=== PATIENT | female | born 1950 | race African-American/Black ===

== ENCOUNTER 2021-10-11 10:01 | Emergency (ER) | payer MEDICARE, BC, SELFPAY ==
--- NOTE | ~2021-10-11 | XR_ITS ---
EXAMINATION: XR chest 2V DATE: 10/11/2021 10:36 INDICATION: Cough. Shortness of breath. TECHNIQUE: Frontal and lateral views of the chest were obtained. COMPARISON: Chest 2 views 10/12/2013, chest CT 10/12/2013 FINDINGS: There are airspace opacities at left lung base. No pleural effusion or pneumothorax. The he art size is normal. IMPRESSION: 1. Airspace opacities at left lung base, consistent with atelectasis versus pneumonia. Reviewed, dictated and finalized at location A. ICAL PRODUCTION ENGINEER IMPRESSION: 1. Airspace opacities at left lung base, consistent with atelectasis versus pne umonia.
--- NOTE | 2021-10-11 10:07 | ECG_ITS ---
Measurements Intervals [place] Rate: 80 P: 11 [place]: 191 QRS: -53 QRSD: 142 T: -10 QT: 373 QTc: 432 Interpretive Statements SINUS RHYTHM LEFT AXIS DEVIATION LEFT BUNDLE BRANCH BLOCK INFERIOR INFARCT OR DUE TO LBBB ABNORMAL ECG Electronically Signed On 10-11-2021 16:54:31 SOFTWARE DEVELOPMENT TEST ENGINEER by Lenin Landaverde D.O.
[2021-10-11 10:12] VITALS: BP 153/86; PULSE 83; RESP 28; TEMP 36.9; O2SAT 98
[2021-10-11 10:27] LABS: Basophils Percent Auto 0.5 % (0.2-1.2); Eosinophils Absolute Auto 0.1 K/mm3 (0-0.3); Eosinophils Percent Auto 1.6 % (0-4.4); Hematocrit 40.3 % (37.0-47.0); Hemoglobin 13.5 g/dL (12.0-15.0); Immature Granulocyte Absolute 0.02 K/mm3 (0.00-0.031); Immature Granulocyte Percent A 0.5 % (0-0.5); Lymphocytes Absolute Auto 0.81 K/mm3 (0.9-3.2); Lymphocytes Percent Auto 18.5 % (18.3-44.2); Mean Corpuscular HGB Conc 33.5 g/dl (32-36); Mean Corpuscular Hemoglobin 31.8 pg (26-34); Mean Corpuscular Volume 94.8 fl (80-100); Mean Platelet Volume 9.5 fl (7.4-10.4); Monocytes Absolute Auto 0.7 K/mm3 (0.1-0.6); Monocytes Percent Auto 16.9 % (2.6-8.5); Neutrophils Absolute Auto 2.7 K/mm3 (1.3-6.7); Platelet Count Result 233 k/mm3 (150-375); Red Blood Count 4.25 M/mm3 (4.2-5.4); Red Cell Distribution Width 13.5 % (11.5-14.5); White Blood Count 4.4 K/mm3 (4.5-10.0)
[2021-10-11 10:37] LABS: Alanine Aminotransferase 18 U/L (4-35); Albumin Level 4.2 g/dL (3.5-5.1); Alkaline Phosphatase 82 U/L (38-126); Anion Gap 8 mmol/L (8-16); Aspartate Amino Transferase 32 U/L (14-36); Bilirubin,Total 0.5 mg/dL (0.2-1.3); Blood Urea Nitrogen 11 mg/dL (7-17); Calcium 8.9 mg/dL (8.4-10.2); Carbon Dioxide 25 mmol/L (22-30); Chloride 99 mmol/L (98-107); Estimated CRCL calculation 57 ml/min; Estimated Glomerular Filt Rate > 60; Glucose 160 mg/dL (65-110); Potassium 3.7 mmol/L (3.4-5.0); Sodium 132 mmol/L (137-145)
[2021-10-11] MEDS: FUROSEMIDE INJ 40 MG/4 ML VIAL IV PUSH (11:08)
[2021-10-11 13:05] VITALS: BP 146/82; PULSE 85; RESP 20; O2SAT 97
[2021-10-11 13:52] VITALS: BP 145/88; PULSE 86; RESP 24
--- NOTE | 2021-10-11 15:47 | ED.GENADULT ---
HPI - General Adult General Chief complaint: Shortness of Breath/Dyspnea <Trisha Hinds PA-C - Last Filed: 10/11/21 16:13> Stated complaint: dizziness <Trisha Hinds PA-C - Last Filed: 10/11/21 16:13> Time Seen by Provider: 10/11/21 10:17 <JAKOB Manriquez Last Filed: 10/11/21 16:13> Source: patient <Trisha Hinds PA-C - Last Filed: 10/11/21 16:13> Mode of arrival: ambulatory <JAKOB Manriquez Last Filed: 10/11/21 16:13> Limitations: no limitations <JAKOB Manriquez Last Filed: 10/11/21 16:13> History of Present Illness HPI narrative: Patient presents with chief complaint of increased work of breathing that began today. Patient reports that she is on her primary care last week because she had a cough and was diagnosed with bronchitis. Patient reports that she was prescribed a Z-Gabriel. She reports that she has also been using her albuterol inhaler as needed but has not been causing any more the past few days. Patient states that she is visiting from out of town and left her Lasix 20 mg tablets at home. She reports she has not taken them this week. She reports she takes 20 mg every other day. She denies noticing increased swelling to her legs, chest pain, fever, chills or lethargy. <Trisha Hinds PA-C - Last Filed: 10/11/21 16:13> Related Data Home medications: Home Medications Medication Instructions Recorded Confirmed acetaminophen [Tylenol Extra 500 mg PO Q6H PRN 10/11/21 10/11/21 Strength] albuterol sulfate 2 puff INHALATION Q4H 10/11/21 aspirin [Aspirin Child] 81 mg PO DAILY 10/11/21 atorvastatin 40 mg PO DAILY 10/11/21 carvedilol 25 mg PO BID 10/11/21 chlorthalidone 25 mg PO DAILY 10/11/21 duloxetine 30 mg PO DAILY 10/11/21 furosemide 20 mg PO DAILY 10/11/21 lisinopril 10 mg PO DAILY 10/11/21 metformin 500 mg PO BID 10/11/21 valsartan 160 mg PO DAILY 10/11/21 <Trisha Hinds PA-C - Last Filed: 10/11/21 16:13> Allergies/adverse reactions: Allergies Allergy/AdvReac Type Severity Reaction Status Date / Time No Known Allergies Allergy Unverified 10/12/13 08:56 <Trisha Hinds PA-C - Last Filed: 10/11/21 16:13> Review of Systems Review of Systems: CONSTITUTIONAL: Denies fever, chills, or sweats. EYES: Denies visual changes, redness, or discharge. ENT: Denies rhinorrhea, congestion, sore throat, or otalgia. CARDIOVASCULAR: Denies chest pain, palpitations, or edema. RESPIRATORY: Reports increased work of breathing and occasional dry cough GASTROINTESTINAL: Denies abdominal pain, nausea, vomiting, or diarrhea. GENITOURINARY: Denies dysuria or hematuria. SKIN: Denies rash or itching. MUSCULOSKELETAL: Denies back pain, joint pain, or myalgia. NEUROLOGIC: Denies headache, numbness, dizziness, or weakness. PSYCHIATRIC: Denies anxiety or depression. <Trisha Hinds PA-C - Last Filed: 10/11/21 16:13> Exam Narrative: GENERAL: Well-appearing, well-nourished, and in no acute distress. HEAD: Normocephalic, atraumatic. EYES: PERRLA and EOMI. NECK: Supple. No adenopathy or masses. No carotid bruits or JVD CHEST: Clear to auscultation. No respiratory distress- but slightly increased RR. No wheezes rales or rhonchi. Patient speaking in clear sentences w/o difficulty. HEART: Regular rate and rhythm. No murmur heard. Normal peripheral pulses. ABDOMEN: Soft, nontender, nondistended, normal active bowel sounds. EXTREMITIES: Normal range of motion. No edema or pitting. SKIN: Warm, dry, no rash. NEURO: No focal deficits. Alert and oriented x3. PSYCH: Normal mood and affect. <Trisha Hinds PA-C - Last Filed: 10/11/21 16:13> Course Vital Signs Vital signs: Vital Signs Temperature 98.4 F 10/11/21 10:12 Pulse Rate 83 10/11/21 10:12 Respiratory Rate 28 H 10/11/21 10:12 Blood Pressure 153/86 H 10/11/21 10:12 Pulse Oximetry 98 10/11/21 10:12 Temperature 98.4 F 10/11/21 10:12 Pulse Rate 86 10/11/21 13:52
== END 2021-10-11 13:45 | disposition home or self-care (01) ==
PROVIDERS: Emergency Provider General Practice
DX: I50.9 Heart failure, unspecified (principal); Z91.14 Patient's other noncompliance with medication regimen; R91.8 Other nonspecific abnormal finding of lung field
CPT/HCPCS: 36415; 71046; 80053; 85025; 93005; 96374; 99284; J1940

== ENCOUNTER 2023-01-30 12:18 | Emergency (ER) | payer MEDICARE, BC, SELFPAY ==
--- NOTE | ~2023-01-30 | XR_ITS ---
EXAMINATION: XR chest 2V 01/30/2023 13:48 INDICATION: Bilateral leg swelling. Weakness. PROCEDURE: Two-view chest COMPARISON: Comparison to multiple prior studies sequentially, with oldest reviewed study dated 01/31. FINDINGS: The lungs are clear. The cardiomediastinal silhouette is within normal limits. There are no pleural effusions. There is no pneumothorax suspected. IMPRESSION: 1: NO ACUTE CARDIOPULMONARY DISEASE. Reviewed, dictated and finalized at location L.
--- NOTE | ~2023-01-30 | US_ITS ---
EXAMINATION:US venous doppler LE BI INDICATION:Leg swelling TECHNIQUE: Multiple grayscale, color flow and Doppler images of the right and left lower extremity de ep venous systems were obtained and reviewed. COMPARISON:No prior studies for comparison. FINDINGS: The common femoral, superficial femoral and popliteal veins demonstrate normal respiratory variation, augmentation and compressibility. Color flow is also seen within the posterior tibial, pe roneal, greater saphenous and profunda veins. IMPRESSION: 1: No lower extremity deep venous thrombosis. Reviewed, dictated and finalized at location L.
[2023-01-30 12:48] VITALS: BP 122/69; PULSE 59; RESP 20; TEMP 37.4; O2SAT 97
--- NOTE | 2023-01-30 13:15 | ECG_ITS ---
Measurements Intervals [place] Rate: 56 P: 10 [place]: 204 QRS: -54 QRSD: 124 T: -31 QT: 422 QTc: 408 Interpretive Statements SINUS BRADYCARDIA LEFT AXIS DEVIATION NONSPECIFIC T-WAVE ABNORMALITY ANTEROSEPTAL MYOCARDIAL INFARCTION , OF INDETERMINATE AGE ABNORMAL ECG COMPARED TO ECG 10/11/2021 10:56:23 SINUS BRADYCARDIA NOW PRESENT Electronically Signed On 01-31-2023 16:25:10 CDT by Richard Pickard M.D.
[2023-01-30 13:30] LABS: Basophils Absolute Auto 0.1 K/mm3 (0.0-0.1); Basophils Percent Auto 0.9 % (0.2-1.2); Eosinophils Absolute Auto 0.4 K/mm3 (0-0.3); Eosinophils Percent Auto 6.4 % (0-4.4); Hematocrit 41.1 % (37.0-47.0); Hemoglobin 13.2 g/dL (12.0-15.0); Immature Granulocyte Absolute 0.01 K/mm3 (0.00-0.031); Immature Granulocyte Percent A 0.2 % (0-0.5); Lymphocytes Absolute Auto 2.37 K/mm3 (0.9-3.2); Lymphocytes Percent Auto 40.9 % (18.3-44.2); Mean Corpuscular HGB Conc 32.1 g/dl (32-36); Mean Corpuscular Hemoglobin 32.1 pg (26-34); Mean Platelet Volume 9.3 fl (7.4-10.4); Monocytes Absolute Auto 0.4 K/mm3 (0.1-0.6); Monocytes Percent Auto 6.9 % (2.6-8.5); Neutrophils Absolute Auto 2.6 K/mm3 (1.3-6.7); Neutrophils Percent Auto 44.7 % (45.5-73.1); Platelet Count Result 236 k/mm3 (150-375); Red Blood Count 4.11 M/mm3 (4.2-5.4); Red Cell Distribution Width 13.6 % (11.5-14.5); White Blood Count 5.8 K/mm3 (4.5-10.0)
[2023-01-30 13:41] LABS: INR 1.1; Prothrombin Time 13.7 Seconds (11.1-14.7)
[2023-01-30 13:46] LABS: Alanine Aminotransferase 17 U/L (6-35); Albumin Level 3.9 g/dL (3.5-5.1); Alkaline Phosphatase 81 U/L (38-126); Anion Gap 5 mmol/L (8-16); Aspartate Amino Transferase 24 U/L (14-36); Bilirubin,Total 0.5 mg/dL (0.2-1.3); Blood Urea Nitrogen 16 mg/dL (7-17); Calcium 8.8 mg/dL (8.4-10.2); Carbon Dioxide 33 mmol/L (22-30); Chloride 102 mmol/L (98-107); Estimated CRCL calculation 64 ml/min; Estimated Glomerular Filt Rate > 60; Glucose 128 mg/dL (65-110); Potassium 3.9 mmol/L (3.4-5.0); Sodium 140 mmol/L (137-145)
[2023-01-30] MEDS: HYDROcodone/acetaminophen (*CRX) 5-325 MG TABLET 1 TAB PO (13:47)
--- NOTE | 2023-01-30 13:53 | ED.GENADULT ---
HPI - General Adult General Chief complaint: Unspecified Stated complaint: hurts all over Time Seen by Provider: 01/30/23 13:31 History of Present Illness HPI narrative: Patient is a 72 year old female with a history of COPD, CHF here for evaluation of BLE pain x 4 days. Patient denies injury. States that her legs are swollen and painful, denies history of previous. She has been able to walk she states it is painful in her knees. She does have a history of DVT in the past, was told she could stop her Eliquis last year. She denies any chest pain, shortness of breath, fevers or chills, cough or congestion. Related Data Home Medications Medication Instructions Recorded Confirmed acetaminophen 500 mg capsule 500 mg PO Q6H PRN Pain, Mild 10/11/21 10/11/21 albuterol sulfate 90 mcg/actuation 2 puff inhalation Q4H 10/11/21 aerosol inhaler aspirin 81 mg chewable tablet 81 mg PO DAILY 10/11/21 atorvastatin 40 mg tablet 40 mg PO DAILY 10/11/21 carvedilol 25 mg tablet 25 mg PO BID 10/11/21 chlorthalidone 25 mg tablet 25 mg PO DAILY 10/11/21 duloxetine 30 mg capsule,delayed 30 mg PO DAILY 10/11/21 release furosemide 20 mg tablet 20 mg PO DAILY 10/11/21 lisinopril 10 mg tablet 10 mg PO DAILY 10/11/21 metformin 500 mg tablet 500 mg PO BID 10/11/21 valsartan 160 mg tablet 160 mg PO DAILY 10/11/21 Allergies Allergy/AdvReac Type Severity Reaction Status Date / Time No Known Allergies Allergy Verified 01/30/23 13:09 Review of Systems Review of Systems: Gen.: Denies fevers or chills Eyes: Denies eye pain or visual change ENT: Denies congestion Respiratory: Denies shortness of breath or cough CV: Denies chest pain or palpitations GI: Denies abdominal pain nausea, emesis or diarrhea denies burning, urgency, frequency or hematuria Musculoskeletal: Reports leg swelling Neuro: Denies numbness, tingling, weakness or focal weakness Skin: Denies rash Except as documented, all other systems reviewed and negative Exam Narrative: APPEARANCE: Well appearing, no pain in distress, well-nourished. Head: Normocephalic and atraumatic. EYES: PERRLA/EOMI, conjunctivae clear NOSE: No nasal drainage EARS: External ear normal in appearance THROAT: Oropharynx is clear. Mucous membranes are moist. NECK: Supple. No adenopathy, no masses. RESPIRATORY: Airway patent, respirations nonlabored. Clear to auscultation bilaterally, no rales, rhonchi, wheezing. CARDIOVASCULAR: Regular rate and rhythm without murmurs, rubs, or gallops. ABDOMINAL: Normoactive bowel sounds. Soft, nontender, nondistended. No rebound tenderness or guarding. MUSCULOSKELETAL: There is 1+ pitting edema to bilateral lower extremities. There is no redness or tenderness to palpation of the calves. There is no bony tenderness to palpation along the knees, hips or feet. Normal gait; steady with a walker. NEURO: Normal speech. No focal neurologic deficits. SKIN: Skin is warm and dry. No rashes. PSYCHIATRIC: Normal affect/mood. Course Vital Signs Vital signs: Vital Signs Temperature 99.3 F 01/30/23 12:48 Pulse Rate 59 L 01/30/23 12:48 Respiratory Rate 20 01/30/23 12:48 Blood Pressure 122/69 01/30/23 12:48 Pulse Oximetry 97 01/30/23 12:48 Oxygen Delivery Room Air 01/30/23 12:48 Temperature 99.3 F 01/30/23 12:48 Pulse Rate 57 L 01/30/23 15:20 Respiratory Rate 17 01/30/23 15:20 Blood Pressure 116/73 01/30/23 15:20 Pulse Oximetry 97 01/30/23 15:20 Oxygen Delivery Room Air 01/30/23 12:48 Medical Decision Making [facility] Narrative Medical decision making narrative: 72 year old female here for evaluation of acute on chronic bilateral trace pitting edema to bilateral lower extremities x 3 days. No other symptoms such as shortness of breath or chest pain. Reports some pain concentrated around her knees but denies any trauma. No bony tenderness to palpation. Patient is nontoxic in appearance and has normal vital signs, she is able to
[2023-01-30 13:57] LABS: NT Pro B Type Natriuretic Pept 67 pg/mL (19.9-100); Troponin I < 0.012 ng/mL (0.000-0.034)
[2023-01-30 15:20] VITALS: BP 116/73; PULSE 57; RESP 17; O2SAT 97
== END 2023-01-30 15:21 | disposition home or self-care (01) ==
PROVIDERS: Emergency Medicine; Emergency Provider Physician Assistant
DX: M79.605 Pain in left leg (principal); M79.604 Pain in right leg; R60.0 Localized edema; J44.9 Chronic obstructive pulmonary disease, unspecified; I50.9 Heart failure, unspecified; Z79.82 Long term (current) use of aspirin; Z79.84 Long term (current) use of oral hypoglycemic drugs
CPT/HCPCS: 36415; 71046; 80053; 83880; 84484; 85025; 85610; 85730; 93005; 93970; 99284; A9270

== ENCOUNTER 2023-05-06 11:00 | Outpatient (RCR) | payer MEDICARE, BC, SELFPAY ==
--- NOTE | 2023-03-24 14:56 | OPREHPOC ---
Outpatient Therapy Plan of Care This is a Multidisciplinary Plan of Care that may contain components documented by all disciplines (PT, OT, and ST.) PT Problem 1 PT Problem #1 Knowledge Deficit PT Goal 1 Goal Pt to be IND with issued HEP. Target Visit 10 PT Problem 2 PT Problem #2 Pain PT Goal 1 Goal Pt to report shameka knee pain no greater than 3/10 in the last week Target Visit 10 PT Goal 2 Goal Pt to report 70% improvement in overall symptoms Target Visit 10 PT Problem 3 PT Problem #3 Impaired Functional Mobil PT Goal 1 Goal Pt to improve 2 min walk distance from 170ft to 220ft. Target Visit 10 PT Goal 2 Goal Pt to improve Tinetti score from 16/28 to 20/28 Target Visit 10 PT Problem 4 PT Problem #4 Impaired Strength PT Goal 1 Goal Pt to demonstrate BLE strength grossly 4+/5 Target Visit 10 PT Goal 2 Goal Pt to improve her 5xSTS time from 26s to 15s to minimize fall risk Target Visit 10 PT Problem 5 PT Problem #5 Impaired Safety Awareness PT Goal 1 Goal Pt to report no falls in the last month Target Visit 10 PT Goal 2 Goal Pt to demonstrate good safety awareness with her rollator Target Visit 10
--- NOTE | 2023-03-24 14:57 | PTOPEVAL1 ---
Assessment and note entered by Lesley Langley, PT, DPT Evaluation Information Assessment Status Evaluation Diagnosis shameka knee and lower back pain Subjective Information Pt arrived 15 mins late for initial evaluation this date. Pt ambulates into the clinic today with a rollator . Pt reports shameka leg pain that limits her mobility, that has been progressing for the last couple months. Her daughter reports she has not been walking very well for a couple of years now. She reports 1 fall in the last 6 months. She reports using her rollator 100% of the time. She reports pain when rolling over at night and during walking , she declines pain at rest. Reported Pain Level Pain Score 3: Self Report Assessment PT Clinical Summary Rafia presents to therapy today for her initial evaluation with a diagnosis of shameka knee pain and low back pain. Today she demonstrates decreased knee ROM shameka, weakness of her shameka ankles, knees, and hips, abnormalities of gait, and decreased safety awareness with functional mobility. Skilled physical therapy services are indicated to address the deficits noted above, to improve safety , to manage pain, to improve functional mobility, and to improve baseline mobility. Plan of Care Interventions Electrical Stimulation,Gait Training,Hot Pack/Cold Pack,Manual Therapy,Neuro Re-education,Patient/ Caregiver Educati,Therapeutic Activities, Therapeutic Exercise PT Services Indicated Yes Treatment Frequency and 2x/wk for 5 wks Duration These treatments will address the objective and functional deficits as defined above. The patient will be advanced safely and appropriately in order for the patient to progress towards his/her prior level of function. Additional exercises will be introduced and as well as a comprehensive home exercise program upon discharge, if needed, ?to ensure carryover of functional gains achieved in the clinic. This treatment plan has been reviewed and agreement upon by the patient.
--- NOTE | 2023-04-15 09:53 | PCPTNOTE ---
Patient reports she cannot make it to her appointment this date due to not having transportation.
--- NOTE | 2023-04-23 08:36 | PCPTNOTE ---
Patient no show and no called this date. Called and patient was not home. Will call back to reschedule appointment.
--- NOTE | 2023-04-24 09:52 | PCPTNOTE ---
Patient no showed to appointment this date. Called and spoke with patient who states she forgot to call to say she had no ride to appointment.
--- NOTE | 2023-05-06 11:59 | PTOPDC ---
Assessment and note entered by Lesley Langley, PT, DPT Evaluation Information Assessment Status Discharge Diagnosis shameka knee and lower back pain Subjective Information Pt states she longer has pain at night anymore. Pt reports 80% improvement in her overall symptoms. She states sometimes she will forget to use her walker. She states she can stand no longer than 4 mins before she has to sit d/t fatigue. Reported Pain Level Pain Score 1,3: Self Report Assessment PT Clinical Summary Rafia presents to therapy today for her progress report following 5 visits of skilled therapy to treat her diagnosis of shameka knee pain and low back pain. Today she demonstrates improved gait speed, improved time during her sit to stand test, and improved LE strength, with decreased pain reports. She reports 80% improvement in overall symptoms and reports she can complete her exercises on her own from now own. She will be therefore be discharged from skilled services at this time. Plan of Care PT Services Indicated No
== END 2023-05-09 09:01 | disposition home or self-care (01) ==
LOC: ANHGOSHPT 11:00
PROVIDERS: Visit Provider Internal Medicine
DX: M54.50 Low back pain, unspecified (principal); M17.10 Unilateral primary osteoarthritis, unspecified knee; G89.29 Other chronic pain; I89.0 Lymphedema, not elsewhere classified
CPT/HCPCS: 97110; 97112; 97161; 97530; 99199

== ENCOUNTER 2023-06-12 18:35 | Observation (INO) | payer MEDICARE, BC, SELFPAY ==
[2023-06-12] VITALS (22 sets, daily range): BP systolic 147–151; BP diastolic 64–72; PULSE 61–70; RESP 14–24; TEMP 36.5–36.8; O2SAT 99–100; BMI 39.2
--- NOTE | ~2023-06-12 | XR_ITS ---
EXAMINATION: XR chest 2V DATE: 06/12/2023 19:11 INDICATION: Chest pain TECHNIQUE: frontal and lateral views of the chest were obtained. COMPARISON: Chest radiograph dated 01/30/2023 FINDINGS: Oblique band of discoid atelectasis/scarring at the anterior lower lung on the lateral projection, mo re likely left and right-sided. No other airspace opacities, pulmonary edema, pleural effusion or pne umothorax. Heart size is normal. There are bridging osteophytes at multiple levels in the spine, cons istent with diffuse idiopathic skeletal hyperostosis (DISH). IMPRESSION: 1. Persistent discoid atelectasis/scarring at the anterior lung base, likely on the left. Reviewed, dictated and finalized at location A.
--- NOTE | 2023-06-12 18:56 | ECG_ITS ---
Measurements Intervals [place] Rate: 66 P: 25 MT: 189 QRS: -45 QRSD: 119 T: 66 QT: 423 QTc: 444 Interpretive Statements SINUS RHYTHM LEFT ANTERIOR FASCICULAR BLOCK [QRS AXIS <= -45, QR IN I, RS IN II] NONSPECIFIC T-WAVE ABNORMALITY ABNORMAL ECG COMPARED TO ECG 01/30/2023 13:31:32 NO SIGNIFICANT CHANGE Electronically Signed On 06-13-2023 14:40:16 CDT by Joey Stringer M.D.
[2023-06-12 19:12] LABS: Basophils Percent Auto 0.6 % (0.2-1.2); Eosinophils Absolute Auto 0.3 K/mm3 (0-0.3); Eosinophils Percent Auto 6.3 % (0-4.4); Hematocrit 38.7 % (37.0-47.0); Hemoglobin 12.2 g/dL (12.0-15.0); Immature Granulocyte Absolute 0.01 K/mm3 (0.00-0.031); Immature Granulocyte Percent A 0.2 % (0-0.5); Lymphocytes Absolute Auto 1.79 K/mm3 (0.9-3.2); Lymphocytes Percent Auto 37.5 % (18.3-44.2); Mean Corpuscular HGB Conc 31.5 g/dl (32-36); Mean Corpuscular Volume 98.5 fl (80-100); Mean Platelet Volume 9.8 fl (7.4-10.4); Monocytes Absolute Auto 0.5 K/mm3 (0.1-0.6); Monocytes Percent Auto 10.3 % (2.6-8.5); Neutrophils Absolute Auto 2.2 K/mm3 (1.3-6.7); Neutrophils Percent Auto 45.1 % (45.5-73.1); Platelet Count Result 224 k/mm3 (150-375); Red Blood Count 3.93 M/mm3 (4.2-5.4); Red Cell Distribution Width 13.9 % (11.5-14.5); White Blood Count 4.8 K/mm3 (4.5-10.0)
--- NOTE | 2023-06-12 19:24 | ED.CHESTPAIN ---
HPI - Chest Pain General Chief Complaint: Chest Pain Stated Complaint: INTERMITTENT CP X 1 HOUR Time Seen by Provider: 06/12/23 19:20 History of Present Illness HPI narrative: Patient is a 72-year-old female with history of CAD, DVT, hypertension, hyperlipidemia, diabetes here with chest pain. She states that around 515 this evening she was at rest and began having right-sided nonradiating chest pain. She states that last for several seconds and then self resolved. She notes 2 additional similar episodes. No associated diaphoresis or nausea. She has had some shortness of breath. Notes she has intermittent compliance with her lasix, last took it 2 days ago. She is no longer on eliquis. She notes she is also supposed to be on oxygen at night PRN however she has not used it for quite some time. She has been having a cold for the last few days. Has had rhinorrhea, nasal congestion and a non productive cough. No fever. Related Data Home Medications Medication Instructions Recorded Confirmed acetaminophen 500 mg capsule 500 mg PO Q6H PRN Pain, Mild 10/11/21 10/11/21 albuterol sulfate 90 mcg/actuation 2 puff inhalation Q4H 10/11/21 aerosol inhaler aspirin 81 mg chewable tablet 81 mg PO DAILY 10/11/21 atorvastatin 40 mg tablet 40 mg PO DAILY 10/11/21 carvedilol 25 mg tablet 25 mg PO BID 10/11/21 chlorthalidone 25 mg tablet 25 mg PO DAILY 10/11/21 duloxetine 30 mg capsule,delayed 30 mg PO DAILY 10/11/21 release furosemide 20 mg tablet 20 mg PO DAILY 10/11/21 lisinopril 10 mg tablet 10 mg PO DAILY 10/11/21 metformin 500 mg tablet 500 mg PO BID 10/11/21 valsartan 160 mg tablet 160 mg PO DAILY 10/11/21 Allergies Allergy/AdvReac Type Severity Reaction Status Date / Time No Known Allergies Allergy Verified 06/12/23 18:55 Review of Systems Review of Systems: CONSTITUTIONAL: Denies fever, chills, or sweats. EYES: Denies visual changes, redness, or discharge. ENT: rhinorrhea, congestion. No sore throat, or otalgia. CARDIOVASCULAR: chest pain, lower extremity edema. RESPIRATORY: cough and dyspnea. GASTROINTESTINAL: Denies abdominal pain, nausea, vomiting, or diarrhea. GENITOURINARY: Denies dysuria or hematuria. SKIN: Denies rash or itching. MUSCULOSKELETAL: Denies back pain, joint pain, or myalgia. NEUROLOGIC: Denies headache, numbness, or weakness. PSYCHIATRIC: Denies anxiety or depression. Course Course Emergency Course: Chart review performed. Patient is a 72 year old female here with chest pain and difficulty breathing. Not currently using home O2. ED visit note reviewed from 01/30/23 for leg pains, history of DVT, previously on Eliquis. Here with chest pain and shortness of breath. Patient seen evaluated, no acute distress. Nontoxic appearing. Concern for ACS versus CHF exacerbation due to noncompliance. Additionally will do workup for possible infectious process given URI like symptoms. Lab work reviewed. CBC, CMP grossly normal. Troponin normal. BNP minimally elevated. COVID negative. CXR shows no acute findings. Will discuss disposition with patient. HEART score of 4. Discussed case with family and patient. Shared decision making. Patient agreeable to observation stay for cardiac workup. Will page for admission. Spoke with Dr. Drake who accepts the patient for admission in an IMU bed. Vital Signs Vital signs: Vital Signs Temperature 98.3 F 06/12/23 18:34 Pulse Rate 67 06/12/23 18:34 Respiratory Rate 22 H 06/12/23 18:34 Blood Pressure 149/64 H 06/12/23 18:34 Pulse Oximetry 100 06/12/23 18:34 Oxygen Delivery Room Air 06/12/23 18:34 Temperature 98.3 F 06/12/23 18:34 Pulse Rate 62 06/12/23 20:47 Respiratory Rate 19 06/12/23 20:47 Blood Pressure 147/68 H 06/12/23 20:47 Pulse Oximetry 100 06/12/23 20:47 Oxygen Delivery Nasal Cannula 06/12/23 19:29 Oxygen Flow Rate 2 06/12/23 19:29 MDM - Chest Pain Lab Data 06/12/23 19:02
[2023-06-12 19:25] LABS: INR 1.1; Partial Thromboplastin Time 27.5 SECONDS (22.3-36.8); Prothrombin Time 14.7 Seconds (11.1-14.7)
[2023-06-12 19:33] LABS: Alanine Aminotransferase 15 U/L (6-35); Albumin Level 3.7 g/dL (3.5-5.1); Alkaline Phosphatase 74 U/L (38-126); Anion Gap 1 mmol/L (8-16); Aspartate Amino Transferase 20 U/L (14-36); Bilirubin,Total 0.6 mg/dL (0.2-1.3); Blood Urea Nitrogen 13 mg/dL (7-17); Calcium 8.7 mg/dL (8.4-10.2); Carbon Dioxide 29 mmol/L (22-30); Chloride 103 mmol/L (98-107); Estimated CRCL calculation 67 ml/min; Estimated Glomerular Filt Rate > 60; Glucose 113 mg/dL (65-110); Lipase 51 U/L (23-300); Sodium 133 mmol/L (137-145)
[2023-06-12 19:39] LABS: Troponin I < 0.012 ng/mL (0.000-0.034)
[2023-06-12 20:15] LABS: NT Pro B Type Natriuretic Pept 122 pg/mL (19.9-100)
[2023-06-12 20:55] LABS: SARS-CoV-2 RNA PCR Negative (Negative)
[2023-06-12 22:20] LABS: Troponin I < 0.012 ng/mL (0.000-0.034)
--- NOTE | 2023-06-12 22:52 | ADMGEN ---
This patient, Rafia Mitchell, was admitted to IMU Room 201-01. Patient/family oriented to hospital policies and general routines including ID bracelet, bed and alarms, visiting hours, pain management, procedures, bathroom and other care routines, personal items, smoking policy, room service/diet, and visiting hours. Information on how to activate the Rapid Response Team has been discussed. Patient/Family are encouraged to report perceived risks to care and to ask questions if they do not understand what they are told or what they should do.
[2023-06-13] VITALS (24 sets, daily range): BP systolic 123–151; BP diastolic 53–76; PULSE 54–84; RESP 14–20; TEMP 36.4–37; O2SAT 95–100
--- NOTE | 2023-06-13 | EST_ITS ---
Patient Info Name: Rafia Mitchell Age: 72 years : 1950 Gender: Female Ht: 62 in Wt: 214 lbs BSA: 2.11 m2 HR: 60 bpm BP: 143 / 70 mmHg Heart Rhythm: Sinus Rhythm Exam Date: 06/13/2023 10:49 AM Exam Location: [facility] Patient Status: Inpatient Admit Date: 06/12/2023 Staff Ordering Physician: Flor Drake MD Hardening Machine Operator: Kendy Pressley RDCS Attending Provider: LENIN HORN DO Referring Physician: Noelle MORENO; Exercise Technologist: Kendy Pressley RDCS Exercise Physician: Lenin Horn DO Exam Type: CA dobutamine stress echo Study Info Indications R07.9 - Chest pain, unspecified Dobutamine stress echocardiogram is performed. Summary 1. 1. Negative Dobutamine stress test for ischemic ST changes by ECG criteria. 2. 2. Hypertensive response to catecholamines. 3. 3. Negative dobutamine stress echocardiogram for ischemia by wall motion analysis. Stress Echo Findings Left Ventricle Appropriate increase in LV endocardial thickening with systole. Appropriate augmentation of contractility with systole. No wall motion abnormalilty. Left Ventricle Normal LV systolic function, no wall motion abnormality. Protocol: Doubutamine Stress ECG Details Stage: REST Duration (min): 1 min : 8 sec Mace: --- Speed (mph): 0.0 Grade (%): 0 HR (bpm): 61 SBP (mmHg): 143 DBP (mmHg): 70 METS: --- Stage: REST Duration (min): 32 min : 14 sec Mace: --- Speed (mph): 0.0 Grade (%): 0 HR (bpm): 61 SBP (mmHg): 143 DBP (mmHg): 70 METS: --- Stage: STAGE 1 Duration (min): 1 min : 0 sec Mace: --- Speed (mph): 0.0 Grade (%): 0 HR (bpm): 60 SBP (mmHg): 143 DBP (mmHg): 70 METS: --- Stage: STAGE 1 Duration (min): 2 min : 0 sec Mace: --- Speed (mph): 0.0 Grade (%): 0 HR (bpm): 60 SBP (mmHg): 143 DBP (mmHg): 70 METS: --- Stage: STAGE 1 Duration (min): 3 min : 0 sec Mace: --- Speed (mph): 0.0 Grade (%): 0 HR (bpm): 70 SBP (mmHg): 168 DBP (mmHg): 86 METS: --- Stage: STAGE 2 Duration (min): 1 min : 0 sec Mace: --- Speed (mph): 0.0 Grade (%): 0 HR (bpm): 70 SBP (mmHg): 168 DBP (mmHg): 86 METS: --- Stage: STAGE 2 Duration (min): 2 min : 0 sec Mace: --- Speed (mph): 0.0 Grade (%): 0 HR (bpm): 60 SBP (mmHg): 168 DBP (mmHg): 86 METS: --- Stage: STAGE 2 Duration (min): 3 min : 0 sec Mace: --- Speed (mph): 0.0 Grade (%): 0 HR (bpm): 60 SBP (mmHg): 172 DBP (mmHg): 87 METS: --- Stage: STAGE 3 Duration (min): 1 min : 0 sec Mace: --- Speed (mph): 0.0 Grade (%): 0 HR (bpm): 60 SBP (mmHg): 193 DBP (mmHg): 86 METS: --- Stage: STAGE 3 Duration (min): 2 min : 0 sec Mace: --- Speed (mph): 0.0 Grade (%): 0 HR (bpm): 75 SBP (mmHg): 193 DBP (mmHg): 86 METS: --- Stage: STAGE 3 Duration (min): 3 min : 0 sec Mace: --- Speed (mph): 0.0 Grade (%): 0 HR (bpm): 82 SBP (mmHg): 193 DBP (mmHg):
[2023-06-13] MEDS: ALBUTEROL SULFATE NEB 2.5 MG/3 ML INH INHALATION ×3 (00:52→20:53)
[2023-06-13] MEDS: IPRATROPIUM BR 0.02% INH SOLN 0.5 MG/2.5 ML VIAL INHALATION ×3 (00:52→20:55)
[2023-06-13] MEDS: guaiFENesin/DEXTROMETHORPHAN 10 ML UDC 5 ML PO (01:02)
[2023-06-13 01:48] LABS: Troponin I < 0.012 ng/mL (0.000-0.034)
--- NOTE | 2023-06-13 03:13 | PM.IMHP ---
H&P: HPI History of Present Illness Date/Time: 06/13/23 03:13 Chief Complaint: CHEST PAIN Narrative: THIS IS A 72-YEAR-OLD FEMALE WITH PAST MEDICAL HISTORY SIGNIFICANT FOR HYPERTENSION, DIABETES, DYSLIPIDEMIA, ASTHMA. PATIENT PRESENTS TO THE EMERGENCY ROOM DUE TO CHEST PAIN LOCALIZED TO THE RIGHT SIDE PATIENT CAN NOT REALLY GIVE MUCH DETAIL DENIES ANY FEVERS, RIGORS, CHILLS, NAUSEA, VOMITING, ABDOMINAL PAIN, DIARRHEA, COUGH, SPUTUM PRODUCTION. HOWEVER CAN NOT GIVE ANY MEANINGFUL HISTORY CONTRIBUTING TO HER DISEASE PROCESS. PRELIMINARY WORKUP HAS BEEN ESSENTIALLY NONREVEALING TROPONINS X3 HAS BEEN LESS THAN 0.012 D-DIMER WAS 0.4 PATIENT IS BEEN PLACED IN OBSERVATION FOR FURTHER EVALUATION MANAGEMENT AND TREATMENT. EXAMINATION: XR chest 2V DATE: 06/12/2023 19:11 INDICATION: Chest pain TECHNIQUE: frontal and lateral views of the chest were obtained. COMPARISON: Chest radiograph dated 01/30/2023 FINDINGS: Oblique band of discoid atelectasis/scarring at the anterior lower lung on the lateral projection, more likely left and right-sided. No other airspace opacities, pulmonary edema, pleural effusion or pneumothorax. Heart size is normal. There are bridging osteophytes at multiple levels in the spine, consistent with diffuse idiopathic skeletal hyperostosis (DISH). IMPRESSION: 1. Persistent discoid atelectasis/scarring at the anterior lung base, likely on the left. Review of Systems Review of Systems: ROS unobtainable: Yes unobtainable due to medical condition ( SUSPECT UNDERLYING DEMENTIA) [facility] Family History Family History (Updated 06/13/23 @ 00:57 by Alva Marroquin RN) Other Unknown family medical history Social History Social History Smoking status: Former smoker Alcohol intake: never Substance use: never Lack of Transportation: No Lack of Food: Never True Current Housing: I Have Housing Concerned About Future Housing: No Difficulty Paying Gas/Electric Bills: No Difficulty Paying for Meds: No Currently Unemployed: No Education: Decline to Answer Difficulty w/ Childcare or Family Care: No Spiritual care concerns: No Meds Home Medications and Allergies Home Medications Medication Instructions Recorded Confirmed Type acetaminophen 500 mg capsule 500 mg PO Q6H PRN Pain, Mild 10/11/21 06/12/23 History albuterol sulfate 90 mcg/actuation 2 puff inhalation Q4H PRN sOB, 10/11/21 06/12/23 History aerosol inhaler wheezing aspirin 81 mg chewable tablet 81 mg PO DAILY 10/11/21 06/12/23 History atorvastatin 40 mg tablet 40 mg PO DAILY 10/11/21 06/12/23 History carvedilol 25 mg tablet 25 mg PO BID 10/11/21 06/12/23 History duloxetine 30 mg capsule,delayed 30 mg PO DAILY 10/11/21 06/12/23 History release furosemide 20 mg tablet 20 mg PO DAILY 10/11/21 06/12/23 History metformin 500 mg tablet 500 mg PO BID 10/11/21 06/12/23 History guaifenesin 100 mg/5 mL oral liquid 200 mg PO Q4H PRN Cough 06/12/23 06/12/23 History Allergies Allergy/AdvReac Type Severity Reaction Status Date / Time No Known Allergies Allergy Verified 06/12/23 18:55 Vital Signs Vital Signs - 24 hr 06/12/23 18:34 06/12/23 18:49 06/12/23 18:45 Temperature 98.3 F Pulse Rate 67 66 Respiratory Rate 22 H 18 Blood Pressure 149/64 H Pulse Oximetry 100 100 Oxygen Delivery Room Air Room Air Oxygen Flow Rate 06/12/23 18:47 06/12/23 19:29 06/12/23 20:47 Temperature Pulse Rate 70 62 Respiratory Rate 14 19 Blood Pressure 149/64 H 147/68 H Pulse Oximetry 100 100 100 Oxygen Delivery Nasal Cannula Oxygen Flow Rate 2 06/12/23 18:49 06/12/23 19:00 06/12/23 19:01 Temperature Pulse Rate 66 61 62 Respiratory Rate 20 21 H 19 Blood Pressure 147/68 H Pulse Oximetry 100 100 100 Oxygen Delivery Oxygen Flow Rate 06/12/23 19:15 06/12/23 19:30 06/12/23 19:45 Temperature Pulse Rate 62 63 62 Respiratory Rate 22 H 22 H 20 Blood Pressure Pulse Oxi
[2023-06-13 12:29] LABS: Glucose Point of Care 128 mg/dl (65-105)
[2023-06-13] MEDS: DULoxetine HCL 30 MG CAPSULE.DR PO (13:29)
[2023-06-13] MEDS: carvediloL 25 MG TABLET PO ×2 (13:29→20:38)
[2023-06-13] MEDS: ASPIRIN 81 MG CHEWABLE TABLET PO (13:29)
[2023-06-13] MEDS: ATORVASTATIN 40 MG TABLET PO (13:29)
--- NOTE | 2023-06-13 14:33 | PM.IMPN ---
Progress Note: A&P Assessment and Plan (1) Chest pain: Qualifiers: Chest pain type: unspecified Qualified Code(s): R07.9 - Chest pain, unspecified Code(s): R07.9 - Chest pain, unspecified Status: Acute Assessment and Plan: Stress echo ordered, wnl Resolved at this time, do not suspect acute cardiac event (2) Hypertension: Code(s): I10 - Essential (primary) hypertension Status: Acute Assessment and Plan: Blood pressure reviewed 06/13 (3) T2DM (type 2 diabetes mellitus): Code(s): E11.9 - Type 2 diabetes mellitus without complications Status: Acute Assessment and Plan: Accu-Cheks, sliding scale insulin, check A1c Blood glucose reviewed 06/13 (4) Respiratory failure: Code(s): J96.90 - Respiratory failure, unspecified, unspecified whether with hypoxia or hypercapnia Status: Acute Assessment and Plan: Likely multifactorial, home O2 eval, apnealink tonight Plan DVT prophylaxis with lovenox GI prophylaxis not indicated Code status full code Subjective Date/time seen: 06/13/23 14:33 Interval history: 72-year-old female with history of hypertension, diabetes asthma presenting with chest pain. No overnight events noted. No chest pain or shortness of breath. No nausea, vomiting or diarrhea. No fevers or chills. Patient states she used to be on oxygen but has not been on it recently. She is requiring it here but comfortable on 2-3 L. She states she thinks she was on 3-4 L in the past at home. She is completely asymptomatic at this time. Review of Systems Review of Systems: 12 point review of systems was assessed and was negative except as noted in the HPI Exam Narrative: General: No acute distress, alert and oriented per baseline HEENT: Atraumatic, normocephalic, mucous membranes moist CV: Regular rate and rhythm, S1, S2 Lungs: Clear to auscultation bilaterally, no rales or crackles noted, no wheezes, good air entry Abdomen: Soft, nontender, nondistended Extremities: Normal to inspection Skin: No rashes noted, no lesions or wounds seen Psych: Euthymic, normal affect Objective Data Vital Signs Vital Signs: Vital Signs - 24 hr 06/12/23 18:34 06/12/23 18:49 06/12/23 18:45 Temperature 98.3 F Pulse Rate 67 66 Respiratory Rate 22 H 18 Blood Pressure 149/64 H Pulse Oximetry 100 100 Oxygen Delivery Room Air Room Air Oxygen Flow Rate Fraction of Inspired Oxygen 06/12/23 18:47 06/12/23 19:29 06/12/23 20:47 Temperature Pulse Rate 70 62 Respiratory Rate 14 19 Blood Pressure 149/64 H 147/68 H Pulse Oximetry 100 100 100 Oxygen Delivery Nasal Cannula Oxygen Flow Rate 2 Fraction of Inspired Oxygen 06/12/23 18:49 06/12/23 19:00 06/12/23 19:01 Temperature Pulse Rate 66 61 62 Respiratory Rate 20 21 H 19 Blood Pressure 147/68 H Pulse Oximetry 100 100 100 Oxygen Delivery Oxygen Flow Rate Fraction of Inspired Oxygen 06/12/23 19:15 06/12/23 19:30 06/12/23 19:45 Temperature Pulse Rate 62 63 62 Respiratory Rate 22 H 22 H 20 Blood Pressure Pulse Oximetry 100 100 Oxygen Delivery Oxygen Flow Rate Fraction of Inspired Oxygen 06/12/23 20:00 06/12/23 20:17 06/12/23 20:30 Temperature Pulse Rate 67 63 61 Respiratory Rate 24 H 20 21 H Blood Pressure Pulse Oximetry 100 100 100 Oxygen Delivery Oxygen Flow Rate Fraction of Inspired Oxygen 06/12/23 21:01 06/12/23 21:15 06/12/23 21:35 Temperature Pulse Rate 62 62 61 Respiratory Rate 17 16 20 Blood Pressure Pulse Oximetry 100 100 100 Oxygen Delivery Oxygen Flow Rate Fraction of Inspired Oxygen 06/12/23 21:45 06/12/23 22:00 06/12/23 22:23 Temperature Pulse Rate 61 61 67 Respiratory Rate 21 H 17 19 Blood Pressure Pulse Oximetry 100 100 Oxygen Delivery Oxygen Flow Rate Fraction of Inspired Oxygen 06/12/23
--- NOTE | 2023-06-13 14:44 | HOMEO2EVAL ---
Evaluation was performed at [facility] Home Oxygen Evaluation RC: Home Oxygen (O2) Evaluation Start: 06/13/23 14:12 Freq: ONCE Status: Active Protocol: RPE Activity Type Activity Date Activity User E-sign Co-sign Detail Recorded Client Recorded Date Recorded By Document 06/13/23 14:20 DJO [id number] 06/13/23 14:44 DJO Document 06/13/23 14:25 [email or web address] [id number] 06/13/23 14:44 DJO Document 06/13/23 14:35 [email or web address] [email or web address] 06/13/23 14:44 DJO 06/13/23 06/13/23 06/13/23 14:20 14:25 14:35 Home O2 Evaluation [Oxygen] -Test Phase Resting Exercise Resting -Oxygen Delivery Room Air Room Air [Pulse Oximetry] -Pulse Oximetry (90-100 %) 96 95 96 [Pulse Rate] -Pulse Rate (60-100 beats/min) 68 81 70 [Evaluation] -Activity Tolerance Fair [Charges] -Treatment Charges O2 Evaluation - Inpatient
--- NOTE | 2023-06-13 14:46 | PCRCNOTE ---
HOME O2 EVAL COMPLETE, NO REQUIREMENTS
[2023-06-13] MEDS: ENOXAPARIN 40 MG/0.4 ML SYRINGE SUB-Q (15:23)
[2023-06-13 16:28] LABS: Glucose Point of Care 170 mg/dl (65-105)
[2023-06-13] MEDS: INSULIN ASPART (*BKC) 100 UNITS/ML SUB-Q (16:52)
[2023-06-13 20:26] LABS: Glucose Point of Care 99 mg/dl (65-105)
[2023-06-13] MEDS: guaiFENesin 200 MG/10 ML UDC PO (20:38)
[2023-06-13] MEDS: ACETAMINOPHEN 500 MG TABLET PO (20:38)
[2023-06-14 04:54] VITALS: BP 150/77; PULSE 72; RESP 14; TEMP 36.6; O2SAT 97
[2023-06-14 07:31] LABS: Glucose Point of Care 147 mg/dl (65-105)
[2023-06-14 07:50] VITALS: BP 150/72; PULSE 65; RESP 14; TEMP 36.1; O2SAT 99
[2023-06-14] MEDS: ASPIRIN 81 MG CHEWABLE TABLET PO (09:26)
[2023-06-14] MEDS: INSULIN ASPART (*BKC) 100 UNITS/ML SUB-Q (09:26)
[2023-06-14 09:27] VITALS: PULSE 65
[2023-06-14] MEDS: carvediloL 25 MG TABLET PO (09:27)
[2023-06-14] MEDS: ATORVASTATIN 40 MG TABLET PO (09:27)
[2023-06-14] MEDS: ENOXAPARIN 40 MG/0.4 ML SYRINGE SUB-Q (09:28)
[2023-06-14] MEDS: DULoxetine HCL 30 MG CAPSULE.DR PO (09:28)
[2023-06-14] MEDS: ALBUTEROL SULFATE NEB 2.5 MG/3 ML INH INHALATION (10:00)
[2023-06-14 10:01] VITALS: O2SAT 95
[2023-06-14 11:25] LABS: Glucose Point of Care 75 mg/dl (65-105)
--- NOTE | 2023-06-14 11:57 | PM.DS ---
DS: Admitting Diagnosis Discharge Date 06/14/23 Admitting Diagnosis chest pain DS: Discharge Diagnosis Discharge Diagnosis (1) Chest pain: Qualifiers: Chest pain type: unspecified Qualified Code(s): R07.9 - Chest pain, unspecified Code(s): R07.9 - Chest pain, unspecified Status: Acute Assessment and Plan: Stress echo ordered, wnl Resolved at this time, do not suspect acute cardiac event (2) Hypertension: Code(s): I10 - Essential (primary) hypertension Status: Acute Assessment and Plan: Blood pressure reviewed 06/13 (3) T2DM (type 2 diabetes mellitus): Code(s): E11.9 - Type 2 diabetes mellitus without complications Status: Acute Assessment and Plan: Accu-Cheks, sliding scale insulin, check A1c Blood glucose reviewed 06/13 (4) Respiratory failure: Code(s): J96.90 - Respiratory failure, unspecified, unspecified whether with hypoxia or hypercapnia Status: Acute Assessment and Plan: Likely multifactorial, home O2 eval, apnealink tonight Plan DVT prophylaxis with lovenox GI prophylaxis not indicated Code status full code DS: Summary Hospital Course Hospital Course: 72-year-old female with history of hypertension, diabetes, hyperlipidemia, presenting with chest pain. She had a stress echo that showed no signs of ischemia. All symptoms resolved. Etiology thought to be a combination of musculoskeletal with GERD. She did have an oxygen requirement admitted that she was supposed been oxygen at home. She stayed overnight for an [facility] and was sent home with home O2 and close outpatient follow-up with her PCP. She will need an outpatient sleep study as well. Please see above and med rec for details. Time Spent with Patient Time attestation: Total time spent providing and/or coordinating discharge services: Exam Narrative: General: No acute distress, alert and oriented per baseline HEENT: Atraumatic, normocephalic, mucous membranes moist CV: Regular rate and rhythm, S1, S2 Lungs: Clear to auscultation bilaterally, no rales or crackles noted, no wheezes, good air entry Abdomen: Soft, nontender, nondistended Extremities: Normal to inspection Skin: No rashes noted, no lesions or wounds seen Psych: Euthymic, normal affect DS: Data Data Completed and Pending Labs on day of discharge: Labs from last 24 hours 06/14/23 06/14/23 06/13/23 11:19 07:26 20:24 POC Capillary Glucose 75 147 H 99 06/13/23 06/13/23 16:26 12:20 POC Capillary Glucose 170 H 128 H Discharge Plan Discharge Attending physician on discharge: Ginette Graham Consulting providers: Eliza Dumont Discharging Clinician: Ginette Graham Patient Disposition: Home, Self-Care Activity: as tolerated Diet: as tolerated Patient Instructions: Antibiotic Form, Heart Failure (DC) Stand Alone Forms: General Discharge Information Follow-up/Referrals: Eliza Dumont DO [Physician] - Discharge Medications: Continued atorvastatin 40 mg Tablet 40 mg PO DAILY metformin 500 mg Tablet 500 mg PO BID carvedilol 25 mg Tablet 25 mg PO BID aspirin [Aspirin Child] 81 mg Tablet,Chewable 81 mg PO DAILY acetaminophen [Tylenol Extra Strength] 500 mg Capsule 500 mg PO Q6H PRN (Reason: Pain, Mild) duloxetine 30 mg Capsule,Delayed Release(Dr/Ec) 30 mg PO DAILY furosemide 20 mg tablet 20 mg PO DAILY albuterol sulfate 90 mcg/actuation HFA aerosol inhaler 2 puff INHALATION Q4H PRN (Reason: sOB, wheezing) guaifenesin [Robitussin] 100 mg/5 mL Liquid 200 mg PO Q4H PRN (Reason: Cough) Date of admission: 06/12/23 21:50 Primary Care Provider: PHYSICIAN,EQUIPMENT MAINTENANCE SUPERINTENDENT Admitting Provider: Flor Drake V. Attending physician on admission: Flor Drake V. Condition: Serious
== END 2023-06-14 13:00 | disposition home or self-care (01) ==
LOC: ANHED 22:07 → ANHIMU 06-13 00:58
PROVIDERS: Student in an Organized Health Care Education/Training Program; Admitting Provider Internal Medicine; Emergency Provider Student in an Organized Health Care Education/Training Program; Visit Provider Student in an Organized Health Care Education/Training Program
DX: R07.9 Chest pain, unspecified (principal); J96.90 Respiratory failure, unspecified, unspecified whether with hypoxia or hypercapnia; I25.10 Atherosclerotic heart disease of native coronary artery without angina pectoris; Z86.718 Personal history of other venous thrombosis and embolism; I10 Essential (primary) hypertension; J45.909 Unspecified asthma, uncomplicated; E78.5 Hyperlipidemia, unspecified; E11.9 Type 2 diabetes mellitus without complications; Z20.822 Contact with and (suspected) exposure to COVID-19; R94.31 Abnormal electrocardiogram [ECG] [EKG]; R00.1 Bradycardia, unspecified; Z87.891 Personal history of nicotine dependence; R91.8 Other nonspecific abnormal finding of lung field; Z79.1 Long term (current) use of non-steroidal anti-inflammatories (NSAID); Z79.51 Long term (current) use of inhaled steroids; Z79.82 Long term (current) use of aspirin; Z79.84 Long term (current) use of oral hypoglycemic drugs; Z79.899 Other long term (current) drug therapy
CPT/HCPCS: 36415; 71046; 80053; 82948; 83690; 83880; 84484; 85025; 85380; 85610; 85730; 87635; 93005; 94618; 94640; 94762; 96372; 97161; 97165; 99285; A9270; G0378; J0461; J1250; J1650; J1815

== ENCOUNTER 2023-10-28 08:46 | Emergency (ER) | payer MEDICARE, BC, SELFPAY ==
[2023-10-28] VITALS (7 sets, daily range): BP systolic 171–191; BP diastolic 75–91; PULSE 54–66; RESP 16–18; TEMP 36.4–36.7; O2SAT 97–100
--- NOTE | ~2023-10-28 | XR_ITS ---
EXAMINATION: XR chest 1V portable DATE: 10/28/2023 09:42 INDICATION: Chest pain. TECHNIQUE: A single frontal view of the chest was obtained. COMPARISON: Chest 2 views 06/12/2023, chest CT 10/12/2013 FINDINGS: There is no pneumonia, pleural effusion, or pneumothorax. The heart size is normal. IMPRESSION: 1. No acute cardiopulmonary disease. Reviewed, dictated and finalized at location A. RETREADER
--- NOTE | 2023-10-28 08:50 | ECG_ITS ---
Measurements Intervals [place] Rate: 65 P: 8 NE: 207 QRS: -48 QRSD: 111 T: 66 QT: 401 QTc: 419 Interpretive Statements SINUS RHYTHM LEFT AXIS DEVIATION INTRAVENTRICULAR CONDUCTION DELAY VOLTAGE CRITERIA FOR LVH ANTEROSEPTAL INFARCT, AGE INDETERMINATE BORDERLINE ST-T WAVE ABNORMALITY- HIGH LATERAL LEADS BASELINE ARTIFACT- I, III, AVR, V2 ABNORMAL ECG COMPARED TO ECG 06/12/2023 18:41:43 NO SIGNIFICANT CHANGES Electronically Signed On 10-28-2023 9:53:39 [employer]AMPING [employer] by Lenin Landaverde D.O.
[2023-10-28 09:05] LABS: Basophils Percent Auto 0.6 % (0.2-1.2); Eosinophils Absolute Auto 0.2 K/mm3 (0-0.3); Eosinophils Percent Auto 5.2 % (0-4.4); Hematocrit 40.5 % (37.0-47.0); Hemoglobin 12.6 g/dL (12.0-15.0); Immature Granulocyte Absolute 0.01 K/mm3 (0.00-0.031); Immature Granulocyte Percent A 0.2 % (0-0.5); Lymphocytes Absolute Auto 1.65 K/mm3 (0.9-3.2); Lymphocytes Percent Auto 35.6 % (18.3-44.2); Mean Corpuscular HGB Conc 31.1 g/dl (32-36); Mean Corpuscular Hemoglobin 31.3 pg (26-34); Mean Corpuscular Volume 100.5 fl (80-100); Mean Platelet Volume 10.1 fl (7.4-10.4); Monocytes Absolute Auto 0.4 K/mm3 (0.1-0.6); Monocytes Percent Auto 8.6 % (2.6-8.5); Neutrophils Absolute Auto 2.3 K/mm3 (1.3-6.7); Neutrophils Percent Auto 49.8 % (45.5-73.1); Platelet Count Result 240 k/mm3 (150-375); Red Blood Count 4.03 M/mm3 (4.2-5.4); White Blood Count 4.6 K/mm3 (4.5-10.0)
[2023-10-28 09:14] LABS: Alanine Aminotransferase 14 U/L (6-35); Albumin Level 3.7 g/dL (3.5-5.1); Alkaline Phosphatase 69 U/L (38-126); Anion Gap 6 mmol/L (8-16); Aspartate Amino Transferase 25 U/L (14-36); Bilirubin,Total 0.8 mg/dL (0.2-1.3); Blood Urea Nitrogen 9 mg/dL (7-17); Calcium 8.5 mg/dL (8.4-10.2); Carbon Dioxide 28 mmol/L (22-30); Chloride 105 mmol/L (98-107); Estimated CRCL calculation 65 ml/min; Estimated Glomerular Filt Rate > 60; Glucose 157 mg/dL (65-110); Lipase 37 U/L (23-300); Potassium 3.5 mmol/L (3.4-5.0); Sodium 139 mmol/L (137-145)
[2023-10-28 09:15] LABS: INR 1.1; Prothrombin Time 14.6 Seconds (11.1-14.7)
[2023-10-28 09:16] LABS: Partial Thromboplastin Time 27.6 SECONDS (22.3-36.8)
[2023-10-28 09:23] LABS: NT Pro B Type Natriuretic Pept 171 pg/mL (19.9-100)
[2023-10-28 09:25] LABS: Troponin I < 0.012 ng/mL (0.000-0.034)
--- NOTE | 2023-10-28 09:43 | ED.CHESTPAIN ---
HPI - Chest Pain General Chief Complaint: Chest Pain Stated Complaint: Chest pain Time Seen by Provider: 10/28/23 09:01 Source: patient Mode of arrival: ambulatory Limitations: no limitations History of Present Illness HPI narrative: Patient is a 73-year-old female, with past medical history of diabetes and COPD, who presents the ED who presents the ED with report of chest pain. Patient reports having intermittent episodes of left and right-sided chest pain over the last 3-4 days. States episodes are brief, lasting for a second or 2 at a time. Denies any aggravating or relieving factors to the pain. No aggravation with exertion. Patient states pain last occurred 2 hours ago. She denies any shortness breath, nausea, diaphoresis associated with pain. No current shortness breath. No recent cough or cold symptoms. No fevers. Denies abdominal pain. Denies worsening or new lower extremity swelling. Related Data Home Medications Medication Instructions Recorded Confirmed acetaminophen 500 mg capsule 500 mg PO Q6H PRN Pain, Mild 10/11/21 06/12/23 albuterol sulfate 90 mcg/actuation 2 puff inhalation Q4H PRN sOB, 10/11/21 06/12/23 aerosol inhaler wheezing aspirin 81 mg chewable tablet 81 mg PO DAILY 10/11/21 06/12/23 atorvastatin 40 mg tablet 40 mg PO DAILY 10/11/21 06/12/23 carvedilol 25 mg tablet 25 mg PO BID 10/11/21 06/12/23 duloxetine 30 mg capsule,delayed 30 mg PO DAILY 10/11/21 06/12/23 release furosemide 20 mg tablet 20 mg PO DAILY 10/11/21 06/12/23 metformin 500 mg tablet 500 mg PO BID 10/11/21 06/12/23 guaifenesin 100 mg/5 mL oral liquid 200 mg PO Q4H PRN Cough 06/12/23 06/12/23 Allergies Allergy/AdvReac Type Severity Reaction Status Date / Time No Known Allergies Allergy Verified 06/12/23 18:55 Review of Systems Review of Systems: CONSTITUTIONAL: Denies fever, chills, or sweats. ENT: Denies rhinorrhea, congestion, sore throat. CARDIOVASCULAR: See HPI. RESPIRATORY: Denies cough or dyspnea. GASTROINTESTINAL: Denies abdominal pain, nausea, vomiting, or diarrhea. GENITOURINARY: Denies dysuria or hematuria. All systems reviewed & are unremarkable except as noted in HPI and below [facility] Family History Family History (Updated 06/13/23 @ 00:57 by Alva Marroquin RN) Other Unknown family medical history Social History Social History Smoking status: Former smoker Alcohol intake: never Substance use: never Lack of Transportation: No Lack of Food: Never True Current Housing: I Have Housing Concerned About Future Housing: No Difficulty Paying Gas/Electric Bills: No Difficulty Paying for Meds: No Currently Unemployed: No Education: Decline to Answer Difficulty w/ Childcare or Family Care: No Spiritual care concerns: No Exam Narrative: GENERAL: Well appearing, obese with BMI of 42.1, non-toxic, in no acute distress. HEAD: Normocephalic, atraumatic. RESPIRATORY: Airway patent, respirations nonlabored. Clear to auscultation bilaterally, no rales, rhonchi, wheezing. CARDIOVASCULAR: Regular rate and rhythm without murmurs, rubs, or gallops. ABDOMINAL: Soft, nontender, nondistended. Normoactive BS. MUSCULOSKELETAL: Moves all extremities. No gross deformities. Diffuse swelling in lower extremities, nonpitting, symmetric, no evidence of erythema or cellulitis. SKIN: Warm, dry, normal color. NEURO: A&O X3. Speech clear. Cranial nerves II-XII grossly intact. No ataxic movements. PSYCHIATRIC: Appropriate mood and affect. Normal interaction. Course Vital Signs Vital signs: Vital Signs Temperature 97.8 F 10/28/23 08:53 Pulse Rate 65 10/28/23 08:53 Respiratory Rate 16 10/28/23 08:53 Blood Pressure 183/90 H 10/28/23 08:53 Pulse Oximetry 99 10/28/23 08:53 Oxygen Delivery Room Air 10/28/23 08:53 Temperature 97.6 F 10/28/23 12:03 Pulse Rate 66 10/28/23 12:03 Respiratory Rate 18 10/28/23 12:03 Blood Pressure 171/91 H 10/28/23 12:03 P
[2023-10-28 12:28] LABS: Troponin I < 0.012 ng/mL (0.000-0.034)
== END 2023-10-28 13:39 | disposition home or self-care (01) ==
PROVIDERS: Emergency Medicine; Emergency Provider Physician Assistant
DX: R07.89 Other chest pain (principal); E11.9 Type 2 diabetes mellitus without complications; J44.9 Chronic obstructive pulmonary disease, unspecified; Z87.891 Personal history of nicotine dependence; Z79.84 Long term (current) use of oral hypoglycemic drugs; Z79.82 Long term (current) use of aspirin
CPT/HCPCS: 36415; 71045; 80053; 83690; 83880; 84484; 85025; 85610; 85730; 93005; 99284

== ENCOUNTER 2023-11-09 10:03 | Emergency (ER) | payer MEDICARE, BC, SELFPAY ==
[2023-11-09 10:05] VITALS: BP 150/77; PULSE 70; RESP 16; TEMP 36.6; O2SAT 97
[2023-11-09 10:21] VITALS: BP 171/95; PULSE 62; RESP 20; TEMP 36.7; O2SAT 100
--- NOTE | 2023-11-09 10:33 | ECG_ITS ---
Measurements Intervals [place] Rate: 56 P: -10 MD: 183 QRS: -52 QRSD: 144 T: -57 QT: 445 QTc: 431 Interpretive Statements SINUS BRADYCARDIA LEFT AXIS DEVIATION INTRAVENTRICULAR CONDUCTION DELAY ANTEROSEPTAL INFARCT, AGE INDETERMINATE BORDERLINE T WAVE ABNORMALITY- INF/LAT LEADS ABNORMAL ECG COMPARED TO ECG 10/28/2023 08:58:58 SINUS BRADYCARDIA NOW PRESENT Electronically Signed On 11-09-2023 14:26:59 MANAGER STATE by Lenin Landaverde D.O.
--- NOTE | 2023-11-09 10:34 | ED.GENADULT ---
HPI - General Adult General Chief complaint: Extremity Problem,Nontraumatic Stated complaint: EXTREMITY PAIN Time Seen by Provider: 11/09/23 10:20 Source: patient Mode of arrival: ambulatory Limitations: no limitations History of Present Illness HPI narrative: This is a 73-year-old female with PMH of HLD, HTN, diabetes, anxiety who presents to the ED with chief complaint of bilateral arm and leg beginning suddenly last night. Reports that her thighs were burning and it was difficult to lift her legs off the bed. Reports that she has had past episodes of this but nothing recently. She does state that she has been intermittently taking her atorvastatin but recently started back up couple of days ago. Patient also reports that she had COVID a couple weeks ago is still dealing with some cough and congestion. Denies chest pain, shortness of breath productive cough, fevers, chills, rash leg swelling or any injuries or falls. Related Data Home Medications Medication Instructions Recorded Confirmed acetaminophen 500 mg capsule 500 mg PO Q6H PRN Pain, Mild 10/11/21 06/12/23 albuterol sulfate 90 mcg/actuation 2 puff inhalation Q4H PRN sOB, 10/11/21 06/12/23 aerosol inhaler wheezing aspirin 81 mg chewable tablet 81 mg PO DAILY 10/11/21 06/12/23 atorvastatin 40 mg tablet 40 mg PO DAILY 10/11/21 06/12/23 carvedilol 25 mg tablet 25 mg PO BID 10/11/21 06/12/23 duloxetine 30 mg capsule,delayed 30 mg PO DAILY 10/11/21 06/12/23 release furosemide 20 mg tablet 20 mg PO DAILY 10/11/21 06/12/23 metformin 500 mg tablet 500 mg PO BID 10/11/21 06/12/23 guaifenesin 100 mg/5 mL oral liquid 200 mg PO Q4H PRN Cough 06/12/23 06/12/23 Allergies Allergy/AdvReac Type Severity Reaction Status Date / Time No Known Allergies Allergy Verified 11/09/23 10:20 Review of Systems Review of Systems: All systems as dictated in [facility] Family History Family History (Updated 06/13/23 @ 00:57 by Alva Marroquin RN) Other Unknown family medical history Social History Social History Smoking status: Former smoker Alcohol intake: never Substance use: never Lack of Transportation: No Lack of Food: Never True Current Housing: I Have Housing Concerned About Future Housing: No Difficulty Paying Gas/Electric Bills: No Difficulty Paying for Meds: No Currently Unemployed: No Education: Decline to Answer Difficulty w/ Childcare or Family Care: No Spiritual care concerns: No Exam Narrative: GENERAL: Well-appearing, well-nourished, and in no acute distress. HEAD: Normocephalic, atraumatic. EYES: PERRLA and EOMI. ENT: Nares clear, no rhinorrhea or epistaxis. Mucous membranes moist. Oropharynx without tonsillar hypertrophy exudate or other lesions. NECK: Supple. No adenopathy or masses. CHEST: No respiratory distress. Clear to auscultation. No wheezes rales or rhonchi HEART: Regular rate and rhythm. No murmur heard. Normal peripheral pulses. ABDOMEN: Soft, nontender, nondistended, normal active bowel sounds. MSK: Mild tenderness to the anterior thighs. Soft compartments. Neurovascularly intact distally. Normal range of motion. No edema. Ambulatory without difficulty. Tenderness to the anterior forearms as well. Again neurovascularly intact distally with soft compartments. SKIN: Warm, dry, no rash. NEURO: Alert and oriented x3. No focal deficits. PSYCH: Normal mood and affect. Course Vital Signs Vital signs: Vital Signs Temperature 97.9 F 11/09/23 10:05 Pulse Rate 70 11/09/23 10:05 Respiratory Rate 16 11/09/23 10:05 Blood Pressure 150/77 H 11/09/23 10:05 Pulse Oximetry 97 11/09/23 10:05 Oxygen Delivery Room Air 11/09/23 10:05 Temperature 98.0 F 11/09/23 10:21 Pulse Rate 62 11/09/23 10:21 Respiratory Rate 20 11/09/23 10:21 Blood Pressure 171/95 H 11/09/23 10:21 Pulse Oximetry 100 11/09/23 10:21 Oxygen Delivery Room Air 11/09/23 10:05 Me
[2023-11-09] MEDS: IBUPROFEN 600 MG TABLET PO (10:39)
[2023-11-09] MEDS: ACETAMINOPHEN 325 MG TABLET 650 MG PO (10:39)
[2023-11-09 10:55] LABS: Basophils Absolute Auto 0.1 K/mm3 (0.0-0.1); Basophils Percent Auto 1.2 % (0.2-1.2); Eosinophils Absolute Auto 0.3 K/mm3 (0-0.3); Eosinophils Percent Auto 4.8 % (0-4.4); Hematocrit 40.3 % (37.0-47.0); Hemoglobin 12.6 g/dL (12.0-15.0); Immature Granulocyte Absolute 0.01 K/mm3 (0.00-0.031); Immature Granulocyte Percent A 0.2 % (0-0.5); Lymphocytes Absolute Auto 1.99 K/mm3 (0.9-3.2); Lymphocytes Percent Auto 38.3 % (18.3-44.2); Mean Corpuscular HGB Conc 31.3 g/dl (32-36); Mean Corpuscular Hemoglobin 31.3 pg (26-34); Mean Platelet Volume 9.6 fl (7.4-10.4); Monocytes Absolute Auto 0.4 K/mm3 (0.1-0.6); Monocytes Percent Auto 7.3 % (2.6-8.5); Neutrophils Absolute Auto 2.5 K/mm3 (1.3-6.7); Neutrophils Percent Auto 48.2 % (45.5-73.1); Platelet Count Result 256 k/mm3 (150-375); Red Blood Count 4.03 M/mm3 (4.2-5.4); Red Cell Distribution Width 13.8 % (11.5-14.5); White Blood Count 5.2 K/mm3 (4.5-10.0)
[2023-11-09 11:06] LABS: Alanine Aminotransferase 13 U/L (6-35); Albumin Level 3.8 g/dL (3.5-5.1); Alkaline Phosphatase 77 U/L (38-126); Anion Gap 5 mmol/L (8-16); Aspartate Amino Transferase 21 U/L (14-36); Bilirubin,Total 0.7 mg/dL (0.2-1.3); Blood Urea Nitrogen 11 mg/dL (7-17); Calcium 8.7 mg/dL (8.4-10.2); Carbon Dioxide 31 mmol/L (22-30); Chloride 104 mmol/L (98-107); Estimated CRCL calculation 62 ml/min; Estimated Glomerular Filt Rate > 60; Glucose 161 mg/dL (65-110); Potassium 4.3 mmol/L (3.4-5.0); Sodium 140 mmol/L (137-145)
[2023-11-09 12:34] VITALS: BP 133/82; PULSE 65; RESP 18; TEMP 36.7; O2SAT 98
== END 2023-11-09 12:38 | disposition home or self-care (01) ==
PROVIDERS: Emergency Provider Physician Assistant; PCP Internal Medicine
DX: M79.10 Myalgia, unspecified site (principal); I10 Essential (primary) hypertension; E11.9 Type 2 diabetes mellitus without complications; F41.9 Anxiety disorder, unspecified; Z86.16 Personal history of COVID-19; Z87.891 Personal history of nicotine dependence; Z79.82 Long term (current) use of aspirin; Z79.84 Long term (current) use of oral hypoglycemic drugs; R00.1 Bradycardia, unspecified; I45.9 Conduction disorder, unspecified; R94.31 Abnormal electrocardiogram [ECG] [EKG]
CPT/HCPCS: 36415; 80053; 85025; 93005; 99283; A9270

== ENCOUNTER 2024-01-25 08:42 | Emergency (ER) | payer MEDICARE, BC, SELFPAY ==
[2024-01-25] VITALS (13 sets, daily range): BP systolic 128–176; BP diastolic 66–90; PULSE 61–74; RESP 16–24; TEMP 36.8; O2SAT 97–100
--- NOTE | ~2024-01-25 | XR_ITS ---
XR chest 2V DATE: 01/25/2024 09:23 INDICATION: Shortness of breath TECHNIQUE: AP and lateral views COMPARISON: 10/28/2023 portable AP chest FINDINGS: There is mild to moderate elevation of the right diaphragm, stable since 10/28/2023. Heart size appears within normal range. No hilar or mediastinal enlargement. No pulmonary infiltrate or consolidation, pleural effusion or pulmonary mass congestion or pneumothor ax. Bilateral glenohumeral osteoarthritis and chronic rotator cuff atrophy. Diffuse hepatic skeletal hype rostosis of the thoracolumbar spine. IMPRESSION: No active cardiopulmonary disease Reviewed, dictated and finalized at location A.
--- NOTE | 2024-01-25 08:55 | ECG_ITS ---
Measurements Intervals [place] Rate: 72 P: 38 NV: 193 QRS: -56 QRSD: 121 T: 72 QT: 398 AVG RR: 825 QTc: 423 QTCB: 438 QTCF: 424 Interpretive Statements SINUS RHYTHM MARKED LEFT AXIS DEVIATION [QRS AXIS <-30] ABNORMAL ECG SEE SCANNED COPY FOR SIGNATURE MTDD
[2024-01-25 09:09] LABS: Basophils Percent Auto 0.6 % (0.2-1.2); Eosinophils Absolute Auto 0.3 K/mm3 (0-0.3); Eosinophils Percent Auto 5.4 % (0-4.4); Hemoglobin 13.2 g/dL (12.0-15.0); Immature Granulocyte Absolute 0.02 K/mm3 (0.00-0.031); Immature Granulocyte Percent A 0.4 % (0-0.5); Lymphocytes Absolute Auto 1.37 K/mm3 (0.9-3.2); Lymphocytes Percent Auto 27.2 % (18.3-44.2); Mean Corpuscular HGB Conc 32.2 g/dl (32-36); Mean Corpuscular Hemoglobin 31.8 pg (26-34); Mean Corpuscular Volume 98.8 fl (80-100); Mean Platelet Volume 9.7 fl (7.4-10.4); Monocytes Absolute Auto 0.4 K/mm3 (0.1-0.6); Monocytes Percent Auto 6.9 % (2.6-8.5); Neutrophils Percent Auto 59.5 % (45.5-73.1); Platelet Count Result 226 k/mm3 (150-375); Red Blood Count 4.15 M/mm3 (4.2-5.4); Red Cell Distribution Width 13.3 % (11.5-14.5)
[2024-01-25 09:21] LABS: Alanine Aminotransferase 16 U/L (6-35); Albumin Level 3.9 g/dL (3.5-5.1); Alkaline Phosphatase 79 U/L (38-126); Anion Gap 3 mmol/L (4-12); Aspartate Amino Transferase 22 U/L (14-36); Bilirubin,Total 0.6 mg/dL (0.2-1.3); Blood Urea Nitrogen 16 mg/dL (7-17); Calcium 8.8 mg/dL (8.4-10.2); Carbon Dioxide 32 mmol/L (22-30); Chloride 102 mmol/L (98-107); Estimated CRCL calculation 58 ml/min; Estimated Glomerular Filt Rate > 60; Glucose 161 mg/dL (65-110); Potassium 4.1 mmol/L (3.4-5.0); Sodium 137 mmol/L (137-145)
[2024-01-25 09:28] LABS: NT Pro B Type Natriuretic Pept 37 pg/mL (19.9-100)
[2024-01-25 09:30] LABS: Troponin I < 0.012 ng/mL (0.000-0.034)
--- NOTE | 2024-01-25 09:32 | ED.SOB ---
HPI - SOB/Dyspnea General Chief Complaint: Shortness of Breath/Dyspnea Stated Complaint: dyspnea Time Seen by Provider: 01/25/24 09:00 Source: patient and old records reviewed Mode of arrival: ambulatory Limitations: no limitations History of Present Illness HPI Narrative: Patient is a 73-year-old female, past medical history of COPD/chronic bronchitis, who presents the ED with report of shortness of breath. Patient reports having increased difficulty breathing over the last 3 days. Worse with exertion. She has felt herself wheezing. Has an inhaler at home, but states she ran out. Also reports acute on chronic swelling to lower extremities, congestion, rhinorrhea, fluttering palpitations. Denies significant cough. Denies lower extremity pain. Denies chest pain. Denies fevers. Related Data Home Medications Medication Instructions Recorded Confirmed acetaminophen 500 mg capsule 500 mg PO Q6H PRN Pain, Mild 10/11/21 06/12/23 albuterol sulfate 90 mcg/actuation 2 puff inhalation Q4H PRN sOB, 10/11/21 06/12/23 aerosol inhaler wheezing aspirin 81 mg chewable tablet 81 mg PO DAILY 10/11/21 06/12/23 atorvastatin 40 mg tablet 40 mg PO DAILY 10/11/21 06/12/23 carvedilol 25 mg tablet 25 mg PO BID 10/11/21 06/12/23 duloxetine 30 mg capsule,delayed 30 mg PO DAILY 10/11/21 06/12/23 release furosemide 20 mg tablet 20 mg PO DAILY 10/11/21 06/12/23 metformin 500 mg tablet 500 mg PO BID 10/11/21 06/12/23 guaifenesin 100 mg/5 mL oral liquid 200 mg PO Q4H PRN Cough 06/12/23 06/12/23 Allergies Allergy/AdvReac Type Severity Reaction Status Date / Time No Known Allergies Allergy Verified 01/25/24 08:46 Review of Systems Review of Systems: CONSTITUTIONAL: Denies fever, chills, or sweats. ENT: See HPI CARDIOVASCULAR: See HPI RESPIRATORY: See HPI GASTROINTESTINAL: Denies abdominal pain, nausea, vomiting. NEUROLOGIC: Denies headache, dizziness, numbness, or weakness. All systems reviewed & are unremarkable except as noted in HPI and below PMFSH Past Medical History Medical History COPD (chronic obstructive pulmonary disease) Hypertension T2DM (type 2 diabetes mellitus) Family History Family History Other Unknown family medical history Social History Social History Smoking status: Former smoker Alcohol intake: never Substance use: never Lack of Transportation: No Lack of Food: Never True Current Housing: I Have Housing Concerned About Future Housing: No Difficulty Paying Gas/Electric Bills: No Difficulty Paying for Meds: No Currently Unemployed: No Education: Decline to Answer Difficulty w/ Childcare or Family Care: No Spiritual care concerns: No Exam Narrative: GENERAL: Elderly, obese with BMI of 34.6, non-toxic, in no acute distress. HEAD: Normocephalic, atraumatic. RESPIRATORY: Airway patent, respirations nonlabored. Scattered expiratory wheezing throughout bilateral lung ramires, right greater than left, prolonged expiratory phase. CARDIOVASCULAR: Regular rate and rhythm without murmurs, rubs, or gallops. MUSCULOSKELETAL: Moves all extremities. No gross deformities. Trace lower extremity swelling throughout BLE, symmetric, no redness or warmth. SKIN: Warm, dry, normal color. NEURO: A&O X3. Speech clear. PSYCHIATRIC: Appropriate mood and affect. Normal interaction. Course Vital Signs Vital signs: Vital Signs Temperature 98.3 F 01/25/24 08:44 Pulse Rate 67 01/25/24 08:44 Respiratory Rate 16 01/25/24 08:44 Blood Pressure 142/90 H 01/25/24 08:44 Pulse Oximetry 99 01/25/24 08:44 Temperature 98.3 F 01/25/24 08:44 Pulse Rate 63 01/25/24 12:47 Respiratory Rate 19 01/25/24 12:47 Blood Pressure 163/83 H 01/25/24 12:47 Pulse Oximetry 98 01/25/24 12:47 [employer]
[2024-01-25] MEDS: LEVALBUTEROL NEB 1.25 MG/3 ML 2.5 MG INHALATION (09:36)
[2024-01-25] MEDS: IPRATROPIUM BR 0.02% INH SOLN 0.5 MG/2.5 ML VIAL 1.5 MG INHALATION (09:37)
[2024-01-25] MEDS: methylPREDNISolone SOD SUCC 125 MG VIAL IV PUSH (09:45)
[2024-01-25 09:46] LABS: Influenza A QL RT-PCR Negative (Negative); Influenza B QL RT-PCR Negative (Negative); RSV RNA, RT-PCR Negative (Negative); SARS-CoV-2 RNA PCR Negative (Negative)
[2024-01-25 09:50] LABS: Magnesium 1.8 mg/dL (1.6-2.3)
[2024-01-25 10:25] LABS: Prothrombin Time 13.4 Seconds (11.1-14.7)
[2024-01-25 10:26] LABS: Partial Thromboplastin Time 27.6 Seconds (22.3-36.8)
[2024-01-25 10:35] LABS: D Dimer 0.51 ug/mL (<0.48)
--- NOTE | 2024-01-25 12:14 | PC.NURSE ---
See downtime charting for additional documentation
== END 2024-01-25 12:48 | disposition home or self-care (01) ==
LOC: ANHED 09:31
PROVIDERS: Emergency Medicine; Emergency Provider Physician Assistant; PCP Internal Medicine
DX: J44.1 Chronic obstructive pulmonary disease with (acute) exacerbation (principal); Z20.822 Contact with and (suspected) exposure to COVID-19; I10 Essential (primary) hypertension; E11.9 Type 2 diabetes mellitus without complications; Z87.891 Personal history of nicotine dependence; Z79.82 Long term (current) use of aspirin; Z79.84 Long term (current) use of oral hypoglycemic drugs; R94.31 Abnormal electrocardiogram [ECG] [EKG]
CPT/HCPCS: 36415; 71046; 80053; 83735; 83880; 84484; 85025; 85380; 85610; 85730; 87637; 93005; 94640; 96374; 99284; J2919

== ENCOUNTER 2024-04-25 09:52 | Emergency (ER) | payer MEDICARE, BC, SELFPAY ==
[2024-04-25] VITALS (12 sets, daily range): BP systolic 180–194; BP diastolic 90–96; PULSE 66–78; RESP 13–23; TEMP 36.4; O2SAT 99–100
--- NOTE | ~2024-04-25 | XR_ITS ---
EXAMINATION: XR chest 1V portable DATE: 04/25/2024 10:21 INDICATION: Dyspnea. Wheezing. TECHNIQUE: A single frontal view of the chest was obtained. COMPARISON: Chest 2 views 01/25/2024, chest CT 10/12/2013 FINDINGS: There is no pneumonia, pleural effusion, or pneumothorax. The heart size is normal. A BB ov erlies the central chest. IMPRESSION: 1. No acute cardiopulmonary disease. 2. A BB overlies the central chest. Reviewed, dictated and finalized at location E.
--- NOTE | 2024-04-25 10:06 | ECG_ITS ---
Test Date: 2024-04-25 10:10:02 Measurements Intervals [place] Rate: 73 P: 9 AL: 181 QRS: -56 QRSD: 119 T: 16 QT: 392 QTc: 434 Interpretive Statements SINUS RHYTHM LEFT AXIS DEVIATION INTRAVENTRICULAR CONDUCTION DELAY ANTEROSEPTAL INFARCT, AGE INDETERMINATE CONSIDER INFERIOR INFARCT, AGE INDETERMINATE BASELINE ARTIFACT- I, II, III, AVR, AVL, AVF, V1-V6 ABNORMAL ECG No previous ECG available for comparison Electronically Signed On 04-25-2024 12:32:38 CDT by Lenin Landaverde D.O.
--- NOTE | 2024-04-25 10:09 | ED.GENADULT ---
HPI - General Adult General Chief complaint: Shortness of Breath/Dyspnea Stated complaint: SHORT OF BREATH X2D. WANTS COVID TEST Time Seen by Provider: 04/25/24 09:59 History of Present Illness HPI narrative: Patient is a 73-year-old female presents emergency department with chief complaint of shortness of breath. Patient reports over last several days been having increasing shortness of breath and wheezing patient reports she has history of COPD patient reports she has been aching all over patient reports she is concerned she may have COVID. Related Data Home Medications Medication Instructions Recorded Confirmed acetaminophen 500 mg capsule 500 mg PO Q6H PRN Pain, Mild 10/11/21 06/12/23 albuterol sulfate 90 mcg/actuation 2 puff inhalation Q4H PRN sOB, 10/11/21 06/12/23 aerosol inhaler wheezing aspirin 81 mg chewable tablet 81 mg PO DAILY 10/11/21 06/12/23 atorvastatin 40 mg tablet 40 mg PO DAILY 10/11/21 06/12/23 carvedilol 25 mg tablet 25 mg PO BID 10/11/21 06/12/23 duloxetine 30 mg capsule,delayed 30 mg PO DAILY 10/11/21 06/12/23 release furosemide 20 mg tablet 20 mg PO DAILY 10/11/21 06/12/23 metformin 500 mg tablet 500 mg PO BID 10/11/21 06/12/23 guaifenesin 100 mg/5 mL oral liquid 200 mg PO Q4H PRN Cough 06/12/23 06/12/23 Allergies Allergy/AdvReac Type Severity Reaction Status Date / Time No Known Allergies Allergy Verified 04/25/24 09:58 Review of Systems Review of Systems: A 10 system review of systems was completed on the patient and is negative except for what is stated in the HPI. Nursing and ancillary documentation was reviewed. [facility] Past Medical History Medical History COPD (chronic obstructive pulmonary disease) Hypertension T2DM (type 2 diabetes mellitus) Family History Family History Other Unknown family medical history Social History Social History Smoking status: Former smoker Alcohol intake: never Substance use: never Lack of Transportation: No Lack of Food: Never True Current Housing: I Have Housing Concerned About Future Housing: No Difficulty Paying Gas/Electric Bills: No Difficulty Paying for Meds: No Currently Unemployed: No Education: Decline to Answer Difficulty w/ Childcare or Family Care: No Spiritual care concerns: No Exam Narrative: GENERAL: Well-appearing, well-nourished, and in no acute distress. HEAD: Normocephalic, atraumatic. EYES: PERRLA and EOMI. ENT: Nares clear, no rhinorrhea or epistaxis. Mucous membranes moist. NECK: Supple. CHEST: Wheezes to auscultation. No respiratory distress. HEART: Regular rate and rhythm. No murmur heard. Normal peripheral pulses. ABDOMEN: Soft, nontender, nondistended, normal active bowel sounds. EXTREMITIES: Normal range of motion. No edema. SKIN: Warm, dry, no rash. NEURO: No focal deficits. Alert and oriented x3. PSYCH: Normal mood and affect. Course Vital Signs Vital signs: Vital Signs Temperature 36.4 C L 04/25/24 09:58 Pulse Rate 78 04/25/24 09:58 Respiratory Rate 18 04/25/24 09:58 Blood Pressure 194/96 H 04/25/24 09:58 Pulse Oximetry 100 04/25/24 09:58 Temperature 36.4 C L 04/25/24 09:58 Pulse Rate 70 04/25/24 11:39 Respiratory Rate 21 H 04/25/24 11:39 Blood Pressure 194/96 H 04/25/24 10:09 Pulse Oximetry 99 04/25/24 10:49 Medical Decision Making [facility] Narrative Medical decision making narrative: Differential diagnosis includes pneumonia, COPD exacerbation, viral illness COVID flu and RSV were negative chest x-ray showed no focal infiltrate laboratory studies were otherwise within normal limits troponin was negative BNP was 3 1 2 Patient received several DuoNebs and received IV steroids in the ER is feeling much better Vital Signs Vital Signs:
[2024-04-25 10:23] LABS: Basophils Percent Auto 0.8 % (0.2-1.2); Eosinophils Absolute Auto 0.4 K/mm3 (0-0.3); Eosinophils Percent Auto 7.8 % (0-4.4); Hematocrit 41.7 % (37.0-47.0); Hemoglobin 13.4 g/dL (12.0-15.0); Lymphocytes Absolute Auto 1.85 K/mm3 (0.9-3.2); Lymphocytes Percent Auto 36.8 % (18.3-44.2); Mean Corpuscular HGB Conc 32.1 g/dl (32-36); Mean Corpuscular Hemoglobin 31.4 pg (26-34); Mean Corpuscular Volume 97.7 fl (80-100); Mean Platelet Volume 9.8 fl (7.4-10.4); Monocytes Absolute Auto 0.3 K/mm3 (0.1-0.6); Monocytes Percent Auto 6.6 % (2.6-8.5); Neutrophils Absolute Auto 2.4 K/mm3 (1.3-6.7); Platelet Count Result 231 k/mm3 (150-375); Red Blood Count 4.27 M/mm3 (4.2-5.4); Red Cell Distribution Width 13.2 % (11.5-14.5)
[2024-04-25] MEDS: IPRATROPIUM 0.5 MG/ALBUTEROL SULFATE 2.5 MG AMPUL.NEB 3 ML INHALATION ×2 (10:23→11:27)
[2024-04-25 10:34] LABS: Alanine Aminotransferase 13 U/L (6-35); Albumin Level 4.3 g/dL (3.5-5.1); Alkaline Phosphatase 86 U/L (38-126); Anion Gap 9 mmol/L (4-12); Aspartate Amino Transferase 21 U/L (14-36); Bilirubin,Total 0.8 mg/dL (0.2-1.3); Blood Urea Nitrogen 10 mg/dL (7-17); Carbon Dioxide 28 mmol/L (22-30); Chloride 101 mmol/L (98-107); Estimated CRCL calculation 80 ml/min; Estimated Glomerular Filt Rate > 60; Glucose 172 mg/dL (65-110); Magnesium 1.8 mg/dL (1.6-2.3); Potassium 4.3 mmol/L (3.4-5.0); Sodium 138 mmol/L (137-145)
[2024-04-25 10:35] LABS: Lactic Acid Reflex 1.4 mmol/L (0.7-2.0)
[2024-04-25 10:37] LABS: Partial Thromboplastin Time 27.6 Seconds (22.3-36.8)
[2024-04-25 10:46] LABS: NT Pro B Type Natriuretic Pept 312 pg/mL (19.9-100); Troponin I < 0.012 ng/mL (0.000-0.034)
[2024-04-25] MEDS: methylPREDNISolone SOD SUCC 125 MG VIAL IV PUSH (10:46)
[2024-04-25 10:59] LABS: Influenza A QL RT-PCR Negative (Negative); Influenza B QL RT-PCR Negative (Negative); RSV RNA, RT-PCR Negative (Negative); SARS-CoV-2 RNA PCR Negative (Negative)
[2024-04-25 11:06] LABS: Procalcitonin < 0.0 ng/mL
== END 2024-04-25 12:45 | disposition home or self-care (01) ==
PROVIDERS: Emergency Provider Emergency Medicine; PCP Internal Medicine
DX: J44.9 Chronic obstructive pulmonary disease, unspecified (principal); Z20.822 Contact with and (suspected) exposure to COVID-19; I10 Essential (primary) hypertension; E11.9 Type 2 diabetes mellitus without complications; Z87.891 Personal history of nicotine dependence; Z79.82 Long term (current) use of aspirin; Z79.84 Long term (current) use of oral hypoglycemic drugs; Z79.899 Other long term (current) drug therapy
CPT/HCPCS: 36415; 71045; 80053; 83605; 83735; 83880; 84145; 84484; 85025; 85610; 85730; 87637; 93005; 94640; 96374; 99284; J2919

== ENCOUNTER 2024-05-22 12:15 | Emergency (ER) | payer MEDICARE, BC, SELFPAY ==
--- NOTE | ~2024-05-22 | XR_ITS ---
EXAMINATION: XR chest 2V DATE: 05/22/2024 12:46 INDICATION: Chest pain. TECHNIQUE: Frontal and lateral views of the chest were obtained. COMPARISON: Chest single view 04/25/2024 FINDINGS: There is no pneumonia, pleural effusion, or pneumothorax. The heart size is normal. IMPRESSION: 1. No acute cardiopulmonary disease. Reviewed, dictated and finalized at location A.
[2024-05-22 12:15] VITALS: BP 168/80; PULSE 71; RESP 20; TEMP 37.2; O2SAT 95
--- NOTE | 2024-05-22 12:20 | ECG_ITS ---
Test Date: 2024-05-22 12:22:38 Measurements Intervals [place] Rate: 68 P: 12 TN: 202 QRS: -53 QRSD: 113 T: 67 QT: 405 QTc: 432 Interpretive Statements SINUS RHYTHM MARKED LEFT AXIS DEVIATION [QRS AXIS < -30] INTRAVENTRICULAR CONDUCTION DELAY, INCOMPLETE LEFT BUNDLE BRANCH BLOCK ABNORMAL ECG Compared to ECG 04/25/2024 10:10:02 NO DIFFERENCE Electronically Signed On 05-23-2024 08:49:31 CDT by Joey Stringer M.D.
[2024-05-22 12:44] LABS: Basophils Percent Auto 0.6 % (0.2-1.2); Eosinophils Absolute Auto 0.4 K/mm3 (0-0.3); Hematocrit 40.5 % (37.0-47.0); Hemoglobin 12.9 g/dL (12.0-15.0); Lymphocytes Absolute Auto 1.85 K/mm3 (0.9-3.2); Lymphocytes Percent Auto 38.8 % (18.3-44.2); Mean Corpuscular HGB Conc 31.9 g/dl (32-36); Mean Corpuscular Hemoglobin 31.3 pg (26-34); Mean Corpuscular Volume 98.3 fl (80-100); Mean Platelet Volume 9.5 fl (7.4-10.4); Monocytes Absolute Auto 0.3 K/mm3 (0.1-0.6); Monocytes Percent Auto 7.1 % (2.6-8.5); Neutrophils Absolute Auto 2.2 K/mm3 (1.3-6.7); Neutrophils Percent Auto 45.5 % (45.5-73.1); Platelet Count Result 256 k/mm3 (150-375); Red Blood Count 4.12 M/mm3 (4.2-5.4); Red Cell Distribution Width 12.8 % (11.5-14.5); White Blood Count 4.8 K/mm3 (4.5-10.0)
[2024-05-22 12:54] LABS: Prothrombin Time 13.8 Seconds (11.1-14.7)
[2024-05-22 12:55] LABS: Partial Thromboplastin Time 27.7 Seconds (22.3-36.8)
[2024-05-22 12:57] LABS: Alanine Aminotransferase 13 U/L (6-35); Alkaline Phosphatase 78 U/L (38-126); Anion Gap 9 mmol/L (4-12); Aspartate Amino Transferase 17 U/L (14-36); Bilirubin,Total 0.8 mg/dL (0.2-1.3); Blood Urea Nitrogen 14 mg/dL (7-17); Calcium 8.9 mg/dL (8.4-10.2); Carbon Dioxide 29 mmol/L (22-30); Chloride 98 mmol/L (98-107); Estimated CRCL calculation 76 ml/min; Estimated Glomerular Filt Rate > 60; Glucose 194 mg/dL (65-110); Lipase 72 U/L (23-300); Potassium 4.1 mmol/L (3.4-5.0); Sodium 136 mmol/L (137-145)
[2024-05-22 13:08] LABS: Troponin I < 0.012 ng/mL (0.000-0.034)
[2024-05-22 14:31] VITALS: BP 168/76; PULSE 60; RESP 20; O2SAT 98
--- NOTE | 2024-05-22 14:32 | PC.NURSE ---
Respiratory called for breathing treatment
[2024-05-22 14:38] VITALS: PULSE 60; RESP 20; O2SAT 100
[2024-05-22] MEDS: IPRATROPIUM BR 0.02% INH SOLN 0.5 MG/2.5 ML VIAL 1 MG INHALATION (14:38)
[2024-05-22] MEDS: ALBUTEROL SULFATE NEB 2.5 MG/3 ML INH 10 MG INHALATION (14:38)
[2024-05-22 15:29] VITALS: PULSE 61; RESP 22; O2SAT 100
--- NOTE | 2024-05-22 15:37 | ECG_ITS ---
Test Date: 2024-05-22 15:37:30 Measurements Intervals [place] Rate: 62 P: 21 CT: 207 QRS: -52 QRSD: 118 T: 72 QT: 421 QTc: 429 Interpretive Statements SINUS RHYTHM LEFT AXIS DEVIATION [QRS AXIS < -30] INCOMPLETE LEFT BUNDLE BRANCH BLOCK ABNORMAL ECG Compared to ECG 05/22/2024 12:22:38 NO DIFFERENCE Electronically Signed On 05-23-2024 08:55:06 CDT by Joey Stringer M.D.
[2024-05-22 16:07] LABS: Troponin I < 0.012 ng/mL (0.000-0.034)
--- NOTE | 2024-05-22 16:26 | ED.CHESTPAIN ---
HPI - Chest Pain General Chief Complaint: Chest Pain Stated Complaint: chest pain Time Seen by Provider: 05/22/24 13:20 History of Present Illness HPI narrative: Patient is a 73-year-old female who presents ER with reports of chest pain just above left breast that for like it was fishing out of her chest. Began at 10:00 a.m.. Improved when she took an aspirin. Reports some shortness of breath that is chronic related to her COPD. No fevers or chills. No productive cough. She is without nausea or vomiting. She reports history of heart failure but no coronary disease. Cannot describe any other aggravating or alleviating factors at this time. Related Data Home Medications Medication Instructions Recorded Confirmed acetaminophen 500 mg capsule 500 mg PO Q6H PRN Pain, Mild 10/11/21 06/12/23 albuterol sulfate 90 mcg/actuation 2 puff inhalation Q4H PRN sOB, 10/11/21 06/12/23 aerosol inhaler wheezing aspirin 81 mg chewable tablet 81 mg PO DAILY 10/11/21 06/12/23 atorvastatin 40 mg tablet 40 mg PO DAILY 10/11/21 06/12/23 carvedilol 25 mg tablet 25 mg PO BID 10/11/21 06/12/23 duloxetine 30 mg capsule,delayed 30 mg PO DAILY 10/11/21 06/12/23 release furosemide 20 mg tablet 20 mg PO DAILY 10/11/21 06/12/23 metformin 500 mg tablet 500 mg PO BID 10/11/21 06/12/23 guaifenesin 100 mg/5 mL oral liquid 200 mg PO Q4H PRN Cough 06/12/23 06/12/23 Allergies Allergy/AdvReac Type Severity Reaction Status Date / Time No Known Allergies Allergy Verified 04/25/24 09:58 Review of Systems Review of Systems: All systems reviewed & are unremarkable except as noted in HPI and below Constitutional: Constitutional: Reports no additional constitutional complaints ENT: Reports system reviewed and no additional complaints, except as documented Cardiovascular: Cardiovascular: Reports chest pain, Denies rapid heart rate and Denies radiating jaw, neck or arm pain Respiratory: Respiratory: Denies chest congestion, Reports cough, Reports dyspnea and Reports wheezing Gastrointestinal: Gastrointestinal: Reports no additional gastrointestinal complaints Genitourinary: Genitourinary: Reports no additional female genitourinary complaints Musculoskeletal: Musculoskeletal: Reports no additional musculoskeletal complaints PMFSH Past Medical History Medical History (Updated 05/22/24 @ 16:32 by Bijan Montiel MD) COPD (chronic obstructive pulmonary disease) Hypertension T2DM (type 2 diabetes mellitus) Family History Family History Other Unknown family medical history Social History Social History Smoking status: Former smoker Alcohol intake: never Substance use: never Lack of Transportation: No Lack of Food: Never True Current Housing: I Have Housing Concerned About Future Housing: No Difficulty Paying Gas/Electric Bills: No Difficulty Paying for Meds: No Currently Unemployed: No Education: Decline to Answer Difficulty w/ Childcare or Family Care: No Spiritual care concerns: No Exam Narrative: GENERAL: Well-appearing, obese, and in no acute distress. HEAD: Normocephalic, atraumatic. ENT: Mucous membranes moist. CHEST: Faint wheezing throughout. No respiratory distress. HEART: Regular rate and rhythm. Normal peripheral pulses. ABDOMEN: Soft, nontender, nondistended. EXTREMITIES: Normal range of motion. No edema. SKIN: Warm, dry, no rash. NEURO: Alert and oriented x3. PSYCH: Normal mood and affect Course Course Emergency Course: Patient resting comfortably. Neck pain here. Patient feels improved after receiving breathing treatment, lungs are clear. Troponin negative x2. EKG unchanged from previous visit. Discharge. Vital Signs Vital signs: Vital Signs Temperature 99 F 05/22/24 12:15 Pulse Rate 71 05/22/24 12:15 Respiratory Rate 20 05/22/24 12:15 Blood
[2024-05-22 16:41] VITALS: BP 102/82; PULSE 66; RESP 22; TEMP 36.6; O2SAT 100
== END 2024-05-22 16:54 | disposition home or self-care (01) ==
PROVIDERS: Emergency Provider Emergency Medicine; PCP Internal Medicine
DX: J44.9 Chronic obstructive pulmonary disease, unspecified (principal); I50.9 Heart failure, unspecified; E11.9 Type 2 diabetes mellitus without complications; Z87.891 Personal history of nicotine dependence; Z79.82 Long term (current) use of aspirin; Z79.84 Long term (current) use of oral hypoglycemic drugs; I45.9 Conduction disorder, unspecified; I44.7 Left bundle-branch block, unspecified
CPT/HCPCS: 36415; 71046; 80053; 83690; 84484; 85025; 85610; 85730; 93005; 94640; 99284

== ENCOUNTER 2024-06-13 18:50 | Emergency (ER) | payer MEDICARE, BC, SELFPAY ==
--- NOTE | ~2024-06-13 | XR_ITS ---
EXAMINATION: XR chest 1V Exam Date/Time: 06/13/2024 21:20 CDT HISTORY: SOB Comparison: 05/22/2024. RESULT: Lines, tubes, and devices: None. Lungs and pleura: Subsegmental left basilar airspace disease. Cardiomediastinal silhouette: Stable. Other: No acute osseous or upper abdominal finding. IMPRESSION: Subsegmental left basilar atelectasis/consolidation. Reviewed, dictated and finalized at location K.
[2024-06-13 18:52] VITALS: BP 170/92; PULSE 66; RESP 20; TEMP 36.6; O2SAT 98
--- NOTE | 2024-06-13 20:25 | ECG_ITS ---
Test Date: 2024-06-13 22:37:58 Measurements Intervals [place] Rate: 61 P: 19 TN: 191 QRS: -57 QRSD: 124 T: 79 QT: 430 QTc: 436 Interpretive Statements SINUS RHYTHM MARKED LEFT AXIS DEVIATION [QRS AXIS < -30] INCOMPLETE LEFT BUNDLE BRANCH BLOCK ABNORMAL ECG Compared to ECG 05/22/2024 15:37:30 NO DIFFERENCE Electronically Signed On 06-15-2024 07:14:19 CDT by Joey Stringer M.D.
[2024-06-13 22:56] LABS: Basophils Percent Auto 0.7 % (0.2-1.2); Eosinophils Absolute Auto 0.4 K/mm3 (0-0.3); Eosinophils Percent Auto 7.1 % (0-4.4); Hematocrit 39.5 % (37.0-47.0); Immature Granulocyte Absolute 0.01 K/mm3 (0.00-0.031); Immature Granulocyte Percent A 0.2 % (0-0.5); Lymphocytes Percent Auto 40.8 % (18.3-44.2); Mean Corpuscular HGB Conc 32.9 g/dl (32-36); Mean Corpuscular Hemoglobin 32.1 pg (26-34); Mean Corpuscular Volume 97.5 fl (80-100); Mean Platelet Volume 9.8 fl (7.4-10.4); Monocytes Absolute Auto 0.4 K/mm3 (0.1-0.6); Monocytes Percent Auto 7.4 % (2.6-8.5); Neutrophils Absolute Auto 2.5 K/mm3 (1.3-6.7); Neutrophils Percent Auto 43.8 % (45.5-73.1); Platelet Count Result 213 k/mm3 (150-375); Red Blood Count 4.05 M/mm3 (4.2-5.4); Red Cell Distribution Width 13.3 % (11.5-14.5); White Blood Count 5.6 K/mm3 (4.5-10.0)
[2024-06-13 23:08] LABS: Alanine Aminotransferase 12 U/L (6-35); Albumin Level 3.8 g/dL (3.5-5.1); Alkaline Phosphatase 75 U/L (38-126); Anion Gap 7 mmol/L (4-12); Aspartate Amino Transferase 18 U/L (14-36); Bilirubin,Total 0.4 mg/dL (0.2-1.3); Blood Urea Nitrogen 17 mg/dL (7-17); Calcium 8.9 mg/dL (8.4-10.2); Carbon Dioxide 30 mmol/L (22-30); Chloride 101 mmol/L (98-107); Estimated CRCL calculation 61 ml/min; Estimated Glomerular Filt Rate > 60; Glucose 160 mg/dL (65-110); Potassium 3.7 mmol/L (3.4-5.0); Sodium 138 mmol/L (137-145)
[2024-06-14 01:33] VITALS: BP 172/79; PULSE 64; RESP 14; O2SAT 97
--- NOTE | 2024-06-14 01:52 | ED.GENADULT ---
HPI - General Adult General Chief complaint: Shortness of Breath/Dyspnea Stated complaint: dyspnea Time Seen by Provider: 06/14/24 01:36 History of Present Illness HPI narrative: Patient is a 73-year-old female who presents to the emergency department this evening complaining of shortness of breath. Patient admits that she does have history of COPD and believes that she is having a COPD exacerbation. Denies any chest pain, any recent illness, any fevers or chills. Patient also denies any nausea or vomiting. No sick contacts at home. Patient lives at home with her . Denies any additional symptoms or concerns at this time. Related Data Home Medications Medication Instructions Recorded Confirmed acetaminophen 500 mg capsule 500 mg PO Q6H PRN Pain, Mild 10/11/21 06/12/23 albuterol sulfate 90 mcg/actuation 2 puff inhalation Q4H PRN sOB, 10/11/21 06/12/23 aerosol inhaler wheezing aspirin 81 mg chewable tablet 81 mg PO DAILY 10/11/21 06/12/23 atorvastatin 40 mg tablet 40 mg PO DAILY 10/11/21 06/12/23 carvedilol 25 mg tablet 25 mg PO BID 10/11/21 06/12/23 duloxetine 30 mg capsule,delayed 30 mg PO DAILY 10/11/21 06/12/23 release furosemide 20 mg tablet 20 mg PO DAILY 10/11/21 06/12/23 metformin 500 mg tablet 500 mg PO BID 10/11/21 06/12/23 guaifenesin 100 mg/5 mL oral liquid 200 mg PO Q4H PRN Cough 06/12/23 06/12/23 Allergies Allergy/AdvReac Type Severity Reaction Status Date / Time No Known Allergies Allergy Verified 04/25/24 09:58 Review of Systems Review of Systems: All systems are reviewed and are negative unless stated otherwise in the HPI. [facility] Past Medical History Medical History COPD (chronic obstructive pulmonary disease) Hypertension T2DM (type 2 diabetes mellitus) Family History Family History Other Unknown family medical history Social History Social History Smoking status: Former smoker Alcohol intake: never Substance use: never Lack of Transportation: No Lack of Food: Never True Current Housing: I Have Housing Concerned About Future Housing: No Difficulty Paying Gas/Electric Bills: No Difficulty Paying for Meds: No Currently Unemployed: No Education: Decline to Answer Difficulty w/ Childcare or Family Care: No Spiritual care concerns: No Exam Narrative: General: Alert, awake, afebrile, in no acute distress. HEENT: PERRL, no rhinorrhea, no post nasal drip, oropharynx clear. Cardiovascular: Regular rate and rhythm, no murmurs, rubs or gallops, no peripheral edema. Respiratory: Diffuse bilateral wheezing, no tachypnea, no rhonchi, no rubs, no respiratory distress. Abdomen: Soft, nontender, nondistended, no rebound, no guarding, no peritoneal signs. Musculoskeletal: No joint swelling or deformity, normal muscle tone. Skin: No rashes or petechia, no signs of infection. Neurological: Alert and oriented to person, place, and time. Follows all commands. No focal deficits, speech is clear and fluent. Course Vital Signs Vital signs: Vital Signs Temperature 98 F 06/13/24 18:52 Pulse Rate 66 06/13/24 18:52 Respiratory Rate 20 06/13/24 18:52 Blood Pressure 170/92 H 06/13/24 18:52 Pulse Oximetry 98 06/13/24 18:52 Temperature 98 F 06/13/24 18:52 Pulse Rate 64 06/14/24 01:33 Respiratory Rate 14 06/14/24 01:33 Blood Pressure 172/79 H 06/14/24 01:33 Pulse Oximetry 97 06/14/24 01:33 Oxygen Delivery Room Air 06/14/24 01:33 Medical Decision Making MDM Narrative Medical decision making narrative: The patient was evaluated by myself in the emergency department. History is obtained from patient who is an independent historian and physical exam was performed. External medical records were reviewed at this time. IV was established and pertinent tests w
[2024-06-14] MEDS: IPRATROPIUM 0.5 MG/ALBUTEROL SULFATE 2.5 MG AMPUL.NEB 3 ML INHALATION ×2 (01:56)
[2024-06-14 01:58] VITALS: PULSE 59; RESP 18
[2024-06-14] MEDS: methylPREDNISolone SOD SUCC 125 MG VIAL IV PUSH (02:33)
[2024-06-14 02:35] VITALS: BP 172/66; PULSE 64; RESP 18; TEMP 36.8; O2SAT 100
== END 2024-06-14 02:37 | disposition home or self-care (01) ==
PROVIDERS: Emergency Provider Emergency Medicine; PCP Internal Medicine
DX: J44.9 Chronic obstructive pulmonary disease, unspecified (principal); J18.9 Pneumonia, unspecified organism; I10 Essential (primary) hypertension; E11.9 Type 2 diabetes mellitus without complications; Z79.84 Long term (current) use of oral hypoglycemic drugs
CPT/HCPCS: 36415; 71045; 80053; 85025; 93005; 94640; 96374; 99284; J2919

== ENCOUNTER 2024-07-04 09:01 | Emergency (ER) | payer MEDICARE, BC, SELFPAY ==
[2024-07-04] VITALS (10 sets, daily range): BP systolic 137–168; BP diastolic 73–79; PULSE 59–75; RESP 17–22; TEMP 36.7; O2SAT 93–100
--- NOTE | ~2024-07-04 | XR_ITS ---
EXAMINATION: XR chest 2V DATE: 07/04/2024 09:53 INDICATION: Shortness of breath TECHNIQUE: frontal and lateral views of the chest were obtained. COMPARISON: Chest radiograph dated 06/13/2024 FINDINGS: The lungs remain clear with no focal airspace opacities, pulmonary edema, pleural effusion or pneumot horax. The cardiomediastinal silhouette is normal. Bilateral rotator cuff arthropathy. There are brid ging osteophytes at multiple levels consistent with diffuse idiopathic skeletal hyperostosis (DISH). IMPRESSION: 1. No acute cardiopulmonary disease. Reviewed, dictated and finalized at location A.
[2024-07-04 09:45] LABS: Basophils Percent Auto 0.6 % (0.2-1.2); Eosinophils Absolute Auto 0.4 K/mm3 (0-0.3); Eosinophils Percent Auto 6.5 % (0-4.4); Hemoglobin 12.5 g/dL (12.0-15.0); Immature Granulocyte Absolute 0.01 K/mm3 (0.00-0.031); Immature Granulocyte Percent A 0.2 % (0-0.5); Lymphocytes Absolute Auto 1.58 K/mm3 (0.9-3.2); Lymphocytes Percent Auto 29.2 % (18.3-44.2); Mean Corpuscular HGB Conc 32.9 g/dl (32-36); Mean Corpuscular Hemoglobin 32.1 pg (26-34); Mean Corpuscular Volume 97.4 fl (80-100); Mean Platelet Volume 9.9 fl (7.4-10.4); Monocytes Absolute Auto 0.3 K/mm3 (0.1-0.6); Monocytes Percent Auto 6.3 % (2.6-8.5); Neutrophils Absolute Auto 3.1 K/mm3 (1.3-6.7); Neutrophils Percent Auto 57.2 % (45.5-73.1); Platelet Count Result 196 k/mm3 (150-375); Red Cell Distribution Width 13.4 % (11.5-14.5); White Blood Count 5.4 K/mm3 (4.5-10.0)
[2024-07-04 09:58] LABS: Alanine Aminotransferase 14 U/L (6-35); Albumin Level 3.6 g/dL (3.5-5.1); Alkaline Phosphatase 82 U/L (38-126); Anion Gap 7 mmol/L (4-12); Aspartate Amino Transferase 20 U/L (14-36); Bilirubin,Total 0.7 mg/dL (0.2-1.3); Blood Urea Nitrogen 7 mg/dL (7-17); Calcium 8.7 mg/dL (8.4-10.2); Carbon Dioxide 28 mmol/L (22-30); Chloride 102 mmol/L (98-107); Estimated CRCL calculation 82 ml/min; Estimated Glomerular Filt Rate > 60; Glucose 216 mg/dL (65-110); Potassium 3.5 mmol/L (3.4-5.0); Sodium 137 mmol/L (137-145)
[2024-07-04 10:07] LABS: NT Pro B Type Natriuretic Pept 305 pg/mL (19.9-100)
--- NOTE | 2024-07-04 11:10 | ED.GENADULT ---
HPI - General Adult General Chief complaint: Urogenital-Female Stated complaint: swollen vagina Time Seen by Provider: 07/04/24 09:17 History of Present Illness HPI narrative: Patient is a 73-year-old female who presents ER with multiple complaints. First complaint is shortness of breath. Began today. Unsure of any exacerbating factors. No runny nose or sore throat or productive cough. No fevers or chills. She has no chest pain. She also reports that she has developed some swelling to her vagina over last couple days. Patient wears a diaper and is often let. No bleeding or discharge. She has mild dysuria. No urinary frequency. Related Data Home Medications Medication Instructions Recorded Confirmed acetaminophen 500 mg capsule 500 mg PO Q6H PRN Pain, Mild 10/11/21 06/12/23 albuterol sulfate 90 mcg/actuation 2 puff inhalation Q4H PRN sOB, 10/11/21 06/12/23 aerosol inhaler wheezing aspirin 81 mg chewable tablet 81 mg PO DAILY 10/11/21 06/12/23 atorvastatin 40 mg tablet 40 mg PO DAILY 10/11/21 06/12/23 carvedilol 25 mg tablet 25 mg PO BID 10/11/21 06/12/23 duloxetine 30 mg capsule,delayed 30 mg PO DAILY 10/11/21 06/12/23 release furosemide 20 mg tablet 20 mg PO DAILY 10/11/21 06/12/23 metformin 500 mg tablet 500 mg PO BID 10/11/21 06/12/23 guaifenesin 100 mg/5 mL oral liquid 200 mg PO Q4H PRN Cough 06/12/23 06/12/23 Allergies Allergy/AdvReac Type Severity Reaction Status Date / Time No Known Allergies Allergy Verified 07/04/24 09:34 Review of Systems Review of Systems: All systems reviewed & are unremarkable except as noted in HPI and below Constitutional: Constitutional: Reports no additional constitutional complaints ENT: Reports system reviewed and no additional complaints, except as documented Cardiovascular: Cardiovascular: Reports no additional cardiovascular complaints Respiratory: Respiratory: Reports no additional respiratory complaints Genitourinary: Genitourinary: Denies abnormal vaginal bleeding, Denies genital lesions, Reports dysuria, Reports urinary incontinence and Denies vaginal discharge Comments: Swollen labia PMFSH Past Medical History Medical History COPD (chronic obstructive pulmonary disease) Hypertension T2DM (type 2 diabetes mellitus) Family History Family History Other Unknown family medical history Social History Social History Smoking status: Former smoker Alcohol intake: never Substance use: never Lack of Transportation: No Lack of Food: Never True Current Housing: I Have Housing Concerned About Future Housing: No Difficulty Paying Gas/Electric Bills: No Difficulty Paying for Meds: No Currently Unemployed: No Education: Decline to Answer Difficulty w/ Childcare or Family Care: No Spiritual care concerns: No Exam Narrative: GENERAL: Well-appearing, well-nourished, and in no acute distress. HEAD: Normocephalic, atraumatic. ENT: Mucous membranes moist. CHEST: Clear to auscultation. No respiratory distress. HEART: Regular rate and rhythm. Normal peripheral pulses. ABDOMEN: Soft, nontender, nondistended. : Moderate edema of the labia bilaterally without thick purulent discharge. No bleeding. EXTREMITIES: Normal range of motion. nonpitting lower extremity edema. SKIN: Warm, dry, no rash. NEURO: Alert and oriented x3. PSYCH: Normal mood and affect. Course Course Emergency Course: Vaginal swelling related to poor hygiene. Likely to benefit from barrier cream and an antifungal. Vital Signs Vital signs: Vital Signs Pulse Rate 74 07/04/24 09:18 Respiratory Rate 21 H 07/04/24 09:18 Pulse Oximetry 99 07/04/24 09:18 Temperature 98.0 F 07/04/24 09:22 Pulse Rate 72 07/04/24 11:12 Respiratory Rate 19 07/04/24 11:12 Blood Pressur
[2024-07-04 11:25] LABS: Add Urine Microscopic? YES; Appearance Urine Clear (Clear); Bacteria Urine None Seen /hpf; Bilirubin Urine 1+ (Negative); Blood Urine Negative (Negative); Color Urine Dark Yellow (Yellow); Glucose Urine UA Trace mg/dL (Negative); Ketones Urine Trace mg/dL (Negative); Leukocyte Esterase Ur Negative LEU/UL (Negative); Need Manual Microscopic Reviewed; Nitrate Urine Negative (Negative); Protein Urine Trace mg/dL (Negative); Specific Grav Ur 1.037 (1.001-1.035); Squamous Epithelial Cell Urine Few /hpf (Few); WBC Urine 0-5 /hpf (0-3); pH Urine 5.5 (5.0-9.0)
== END 2024-07-04 13:06 | disposition home or self-care (01) ==
PROVIDERS: Emergency Provider Emergency Medicine; PCP Internal Medicine
DX: B37.2 Candidiasis of skin and nail (principal); J44.9 Chronic obstructive pulmonary disease, unspecified; I10 Essential (primary) hypertension; E11.9 Type 2 diabetes mellitus without complications; Z79.84 Long term (current) use of oral hypoglycemic drugs
CPT/HCPCS: 36415; 71046; 80053; 81001; 83880; 85025; 99283

== ENCOUNTER 2024-08-29 08:33 | Emergency (ER) | payer MEDICARE, BC, SELFPAY ==
--- NOTE | ~2024-08-29 | XR_ITS ---
Portable chest x-ray Comparison: 07/04/2024 Clinical History: Cough Findings: Lungs are clear, without focal consolidation or pleural effusion. Cardiomediastinal silho uette is stable. Bones and soft tissues are unremarkable. Impression: Clear lungs. Reviewed, dictated and finalized at location . HNUT MACHINE OPERATOR Impression: Clear lungs.
[2024-08-29 08:46] VITALS: BP 134/81; PULSE 70; RESP 18; TEMP 36.6; O2SAT 100
--- NOTE | 2024-08-29 09:11 | ED_ITS ---
HPI - General Adult General Chief complaint: Unspecified Stated complaint: BODY ACHES Time Seen by Provider: 08/29/24 08:44 History of Present Illness HPI narrative: 73-year-old female presents to the emergency department for evaluation for body aches. Patient states he has had increased body aches and fatigue over the last few days. Patient denies any nausea vomiting diarrhea coughs colds or fevers. Patient denies any recent sick contacts. Patient is in no distress. Patient states she has been taking Tylenol for the increased body aches. Related Data Home Medications Medication Instructions Recorded Confirmed acetaminophen 500 mg capsule 500 mg PO Q6H PRN Pain, Mild 10/11/21 06/12/23 albuterol sulfate 90 mcg/actuation 2 puff inhalation Q4H PRN sOB, 10/11/21 06/12/23 aerosol inhaler wheezing aspirin 81 mg chewable tablet 81 mg PO DAILY 10/11/21 06/12/23 atorvastatin 40 mg tablet 40 mg PO DAILY 10/11/21 06/12/23 carvedilol 25 mg tablet 25 mg PO BID 10/11/21 06/12/23 duloxetine 30 mg capsule,delayed 30 mg PO DAILY 10/11/21 06/12/23 release furosemide 20 mg tablet 20 mg PO DAILY 10/11/21 06/12/23 metformin 500 mg tablet 500 mg PO BID 10/11/21 06/12/23 guaifenesin 100 mg/5 mL oral liquid 200 mg PO Q4H PRN Cough 06/12/23 06/12/23 Allergies Allergy/AdvReac Type Severity Reaction Status Date / Time No Known Allergies Allergy Verified 08/29/24 08:34 Review of Systems Review of Systems: All systems reviewed & are unremarkable except as noted in HPI and below PMFSH Past Medical History Medical History COPD (chronic obstructive pulmonary disease) Hypertension T2DM (type 2 diabetes mellitus) Family History Family History Other Unknown family medical history Social History Social History Smoking status: Former smoker Alcohol intake: never Substance use: never Lack of Transportation: No Lack of Food: Never True Current Housing: I Have Housing Concerned About Future Housing: No Difficulty Paying Gas/Electric Bills: No Difficulty Paying for Meds: No Currently Unemployed: No Education: Decline to Answer Difficulty w/ Childcare or Family Care: No Spiritual care concerns: No Exam Narrative: APPEARANCE: Well appearing, no pain, no distress, well-nourished. HEAD: normocephalic, atraumatic. EYES: PERRLA/EOMI, conjunctivae clear. NOSE: Normal no drainage EARS:TMS clear with good light reflex. THROAT: Pharynx clear, no exudate. NECK: Supple. No adenopathy, no masses. RESPIRATORY: Airway patent, respirations nonlabored. Clear to auscultation bilaterally, no rales, rhonchi, wheezing. CARDIOVASCULAR: Regular rate and rhythm without murmurs rubs or gallops. ABDOMINAL: Soft, nontender, nondistended, normal bowel sounds MUSCULOSKELETAL: Moves all extremities. Strength/ROM intact, No edema, No calf tenderness. NEURO: Alert. Cranial nerves II through XII intact. Grossly intact SKIN: Warm, dry. Normal Color Course Vital Signs Vital signs: Vital Signs Temperature 97.8 F 08/29/24 08:46 Pulse Rate 70 08/29/24 08:46 Respiratory Rate 18 08/29/24 08:46 Blood Pressure 134/81 08/29/24 08:46 Pulse Oximetry 100 08/29/24 08:46 Oxygen Delivery Room Air 08/29/24 08:46 Temperature 98 F 08/29/24 12:00 Pulse Rate 64 08/29/24 12:00 Respiratory Rate 18 08/29/24 12:00 Blood Pressure 114/87 08/29/24 12:00 Pulse Oximetry 98 08/29/24 12:00 Oxygen Delivery Room Air 08/29/24 08:46 Medical Decision Making [facility] Narrative Medical decision making narrative: 73-year-old female presents to the emergency department for evaluation of body aches. Patient is afebrile with no leukocytosis and hemoglobin of 12.8. Patient has no acute abnormalities on her CMP. UA did have some bacteria and urine culture was ordered. Patient is negative for influenza RSV and for COVID. Chest x-ray showed no acute cardiopulmonary abnormality Differential Diagnosis Differential Diagnosis: COVID, influenza, RSV, pneumonia, viral etiology Vital Signs Vital Signs: Vital Signs Temperature 97.8 F 08/29/24 08:46 Pulse Rate 70 08/29/24 08:46 Respiratory Rate 18 08/29/24 08:46 Blood Pressure 134/81 08/29/24 08:46 Pulse Oximetry 100 08/29/24 08:46 Oxygen Delivery Room Air 08/29/24 08:46 Temperature 98 F 08/29/24 12:00 Pulse Rate 64 08/29/24 12:00 Respiratory Rate 18 08/29/24 12:00 Blood Pressure 114/87 08/29/24 12:00 Pulse Oximetry 98 08/29/24 12:00 Oxygen Delivery Room Air 08/29/24 08:46 Lab Data Lab results reviewed: Yes I reviewed the patient's lab results. 08/29/24 09:45 08/29/24 09:45 Labs: Lab Results 08/29/24 Range/Units 09:45 WBC 4.2 L (4.5-10.0) K/mm3 RBC 3.98 L (4.2-5.4) M/mm3 Hgb 12.8 (12.0-15.0) g/dL Hct 39.2 (37.0-47.0) % MCV 98.5 (80-100) fl MCH 32.2 (26-34) pg MCHC 32.7 (32-36) g/dl RDW 13.2 (11.5-14.5) % Plt Count 228 (150-375) k/mm3 MPV 9.8 (7.4-10.4) fl Immature Gran % (Auto) 0.2 (0-0.5) % Neut % (Auto) 47.2 (45.5-73.1) % Lymph % (Auto) 38.0 (18.3-44.2) % [place] % (Auto) 8.1 (2.6-8.5) % Eos % (Auto) 5.5 H (0-4.4) % Baso % (Auto) 1.0 (0.2-1.2) % Lymph # (Auto) 1.60 (0.9-3.2) K/mm3 [place] # (Auto) 0.3 (0.1-0.6) K/mm3 Eos # (Auto) 0.2 (0-0.3) K/mm3 Baso # (Auto) 0.0 (0.0-0.1) K/mm3 Abs Immat Gran (auto) 0.01 (0.00-0.031) K/mm3 Absolute Neuts (auto) 2.0 (1.3-6.7) K/mm3 Absolute Nucleated RBC 0.000 (0.0-0.012) K/mm3 Nucleated RBC % 0.0 (0.0-0.2) % Sodium 136 L (137-145) mmol/L Potassium 4.3 (3.4-5.0) mmol/L Chloride 104 (98-107) mmol/L Carbon Dioxide 25 (22-30) mmol/L Anion Gap 7 (4-12) mmol/L BUN 11 (7-17) mg/dL Creatinine 0.60 L (0.7-1.0) mg/dL Estim Creat Clear Calc 74 ml/min Estimated GFR > 60 (59 - ) Glucose 192 H (65-110) mg/dL Calcium 8.8 (8.4-10.2) mg/dL Magnesium 1.8 (1.6-2.3) mg/dL Total Bilirubin 0.6 (0.2-1.3) mg/dL AST 18 (14-36) U/L ALT 15 (6-35) U/L Alkaline Phosphatase 72 (38-126) U/L Total Creatine Kinase 48 (30-135) U/L Total Protein 7.0 (6.3-8.2) g/dL Albumin 3.8 (3.5-5.1) g/dL TSH (Reflex) 0.903 (0.465-4.68) uIU/mL Urine Color Dark yellow (Yellow) Urine Appearance Turbid H (Clear) Urine pH 5.0 (5.0-9.0) Ur Specific [place] 1.039 H (1.001-1.035) Urine Protein Trace (Negative) mg/dL Urine Glucose (UA) Negative (Negative) mg/dL Urine Ketones Trace H (Negative) mg/dL Ur Blood (Man) Negative (Negative) Urine Nitrate Negative (Negative) Urine Bilirubin 1+ H (Negative) Urine Urobilinogen 1.0 (<2.0) mg/dL Leukocyte Esterase Rfl Trace H (Negative) JEANIE/UL Urine RBC 3-5 H (0-2) /hpf Urine WBC 0-5 (0-3) /hpf Ur Squamous Epith Cells Moderate (Few) /hpf Urine Bacteria 2+ H /hpf Urine Casts 3-5 Influenza A (RT-PCR) Negative (Negative) Influenza B (RT-PCR) Negative (Negative) RSV (RT-PCR) Negative (Negative) SARS-CoV-2 RNA (RT-PCR) Negative (Negative) Imaging Data Radiologist's impression: Impressions Chest X-Ray 08/29/24 11:38 Impression: Clear lungs. Discharge Plan Discharge Clinical Impression: Body aches Patient Disposition: Home, Self-Care Condition: Stable Instructions: Antibiotic Form, Viral Syndrome (ED) Additional Instructions: Tylenol and ibuprofen for pain control. Drink plenty of fluids. Have close follow-up with her primary care physician. If you have any worsening symptoms then please call or return to the emergency department. Prescriptions: No Action atorvastatin 40 mg Tablet 40 mg PO DAILY metformin 500 mg Tablet 500 mg PO BID carvedilol 25 mg Tablet 25 mg PO BID aspirin 81 mg Tablet,Chewable 81 mg PO DAILY acetaminophen 500 mg Capsule 500 mg PO Q6H PRN (Reason: Pain, Mild) duloxetine 30 mg Capsule,Delayed Release(Dr/Ec) 30 mg PO DAILY furosemide 20 mg tablet 20 mg PO DAILY albuterol sulfate 90 mcg/actuation HFA aerosol inhaler 2 puff INHALATION Q4H PRN (Reason: sOB, wheezing) guaifenesin 100 mg/5 mL Liquid 200 mg PO Q4H PRN (Reason: Cough) albuterol sulfate 90 mcg/actuation HFA aerosol inhaler 2 puff inhalation Q4H PRN (Reason: shortness of breath or wheezing) Qty: 6.7 0RF prednisone 20 mg tablet 40 mg PO DAILY 5 Days Qty: 10 0RF albuterol sulfate 90 mcg/actuation HFA aerosol inhaler 2 puff inhalation QID PRN (Reason: shortness of breath or wheezing) Qty: 8.5 0RF nystatin 100,000 unit/gram ointment 1 applic topical BID Qty: 15 0RF zinc oxide 20 % paste 1 ea topical TID Qty: 57 0RF prednisone 20 mg tablet 40 mg PO DAILY 5 Days Qty: 10 0RF doxycycline hyclate 100 mg capsule 100 mg PO BID 5 Days Qty: 10 0RF Follow-up/Referrals: Tamie,MD Sacha [Primary Care Provider] -
[2024-08-29 09:47] VITALS: BP 139/87; PULSE 86; RESP 20; O2SAT 98
[2024-08-29 10:01] LABS: Eosinophils Absolute Auto 0.2 K/mm3 (0-0.3); Eosinophils Percent Auto 5.5 % (0-4.4); Hematocrit 39.2 % (37.0-47.0); Hemoglobin 12.8 g/dL (12.0-15.0); Immature Granulocyte Absolute 0.01 K/mm3 (0.00-0.031); Immature Granulocyte Percent A 0.2 % (0-0.5); Mean Corpuscular HGB Conc 32.7 g/dl (32-36); Mean Corpuscular Hemoglobin 32.2 pg (26-34); Mean Corpuscular Volume 98.5 fl (80-100); Mean Platelet Volume 9.8 fl (7.4-10.4); Monocytes Absolute Auto 0.3 K/mm3 (0.1-0.6); Monocytes Percent Auto 8.1 % (2.6-8.5); Neutrophils Percent Auto 47.2 % (45.5-73.1); Platelet Count Result 228 k/mm3 (150-375); Red Blood Count 3.98 M/mm3 (4.2-5.4); Red Cell Distribution Width 13.2 % (11.5-14.5); White Blood Count 4.2 K/mm3 (4.5-10.0)
[2024-08-29 10:09] LABS: Add Urine Microscopic? YES; Appearance Urine Turbid (Clear); Bacteria Urine 2+ /hpf; Bilirubin Urine 1+ (Negative); Blood Urine Negative (Negative); Color Urine Dark Yellow (Yellow); Glucose Urine UA Negative (Negative); Ketones Urine Trace mg/dL (Negative); Leukocyte Esterase Ur Trace LEU/UL (Negative); Nitrate Urine Negative (Negative); Protein Urine Trace mg/dL (Negative); Specific Grav Ur 1.039 (1.001-1.035); Squamous Epithelial Cell Urine Moderate /hpf (Few); WBC Urine 0-5 /hpf (0-3)
[2024-08-29 10:11] LABS: Alanine Aminotransferase 15 U/L (6-35); Albumin Level 3.8 g/dL (3.5-5.1); Alkaline Phosphatase 72 U/L (38-126); Anion Gap 7 mmol/L (4-12); Aspartate Amino Transferase 18 U/L (14-36); Bilirubin,Total 0.6 mg/dL (0.2-1.3); Blood Urea Nitrogen 11 mg/dL (7-17); Calcium 8.8 mg/dL (8.4-10.2); Carbon Dioxide 25 mmol/L (22-30); Chloride 104 mmol/L (98-107); Creatine Kinase 48 U/L (30-135); Estimated CRCL calculation 74 ml/min; Estimated Glomerular Filt Rate > 60; Glucose 192 mg/dL (65-110); Magnesium 1.8 mg/dL (1.6-2.3); Potassium 4.3 mmol/L (3.4-5.0); Sodium 136 mmol/L (137-145)
[2024-08-29 10:39] LABS: Influenza A QL RT-PCR Negative (Negative); Influenza B QL RT-PCR Negative (Negative); RSV RNA, RT-PCR Negative (Negative); SARS-CoV-2 RNA PCR Negative (Negative)
[2024-08-29 11:32] LABS: Thyroid Stimulating Hormone Reflex 0.903 uIU/mL (0.465-4.68)
[2024-08-29 12:00] VITALS: BP 114/87; PULSE 64; RESP 18; TEMP 36.6; O2SAT 98
== END 2024-08-29 12:01 | disposition home or self-care (01) ==
PROVIDERS: Emergency Provider Emergency Medicine; PCP Internal Medicine
DX: R52 Pain, unspecified (principal); R53.83 Other fatigue; Z79.82 Long term (current) use of aspirin; I10 Essential (primary) hypertension; E11.9 Type 2 diabetes mellitus without complications; J44.9 Chronic obstructive pulmonary disease, unspecified; Z87.891 Personal history of nicotine dependence; Z20.822 Contact with and (suspected) exposure to COVID-19
CPT/HCPCS: 36415; 71045; 80053; 81001; 82550; 83735; 84443; 85025; 87637; 99283

== ENCOUNTER 2024-10-07 15:57 | Emergency (ER) | payer MEDICARE, BC, SELFPAY ==
--- NOTE | ~2024-10-07 | XR_ITS ---
EXAMINATION: XR shoulder RT min 2V DATE: 10/07/2024 17:53 INDICATION: Right shoulder pain. Fall. TECHNIQUE: 3 views of right shoulder were obtained. COMPARISON: None. FINDINGS: There is superior subluxation of humeral head with narrowing of the subacromial space, cons istent with rotator cuff tear. No fracture. There is moderate osteoarthritis of glenohumeral joint an d acromioclavicular joint. IMPRESSION: 1. Polyarticular osteoarthritis. 2. Rotator cuff tear. Reviewed, dictated and finalized at location A. OMER SERVICE ENGINEER
--- NOTE | ~2024-10-07 | XR_ITS ---
EXAMINATION: XR elbow RT min 3V DATE: 10/07/2024 17:53 INDICATION: Right elbow pain. Fall. TECHNIQUE: 4 views of right elbow were obtained. COMPARISON: None. FINDINGS: Alignment is normal. No fracture. There is mild elbow joint osteoarthritis. No elbow joint effusion. IMPRESSION: 1. Mild right elbow joint osteoarthritis. Reviewed, dictated and finalized at location A. PUMPER
--- NOTE | ~2024-10-07 | XR_ITS ---
EXAMINATION: XR wrist LT min 3V DATE: 10/07/2024 17:53 INDICATION: Left wrist pain. Fall. TECHNIQUE: 3 views of left wrist were obtained. COMPARISON: None. FINDINGS: Alignment is normal. There is a fracture deformity of distal radius. There is 1 degree dors al tilt of the distal articular surface. There is a bone fragment distal to ulnar styloid. There is s evere osteoarthritis of radioscaphoid joint and mild osteophytosis of triscaphe joint and first carpa l metacarpal joint. There is moderate osteoarthritis of second and third metacarpophalangeal joints a nd mild osteoarthritis of the other metacarpophalangeal joints. IMPRESSION: 1. Age-indeterminate fracture deformity of distal radius. 2. Bone fragment distal to ulnar styloid, which may be an age-indeterminate avulsion fracture. 3. Polyarticular osteoarthritis. Reviewed, dictated and finalized at location A. GER IN HOME IMPRESSION: 1. Age-indeterminate fracture deformity of distal radius. 2. Bone fragment distal to ulnar styloid, which may be an age-indeterminate avu lsion fracture. 3. Polyarticular osteoarthritis.
--- NOTE | ~2024-10-07 | XR_ITS ---
EXAMINATION: XR hip BI 2V w AP pelvis DATE: 10/07/2024 17:53 INDICATION: Pelvic pain. Fall. TECHNIQUE: An anteroposterior view of the pelvis and 2 views of each hip were obtained. COMPARISON: None. FINDINGS: Alignment is normal. No fracture. There is severe lumbar spondylosis. There is severe right hip osteoarthritis and moderate left hip osteoarthritis. There is a vascular stent overlying the rig ht pelvis. IMPRESSION: 1. Severe right hip osteoarthritis and moderate left hip osteoarthritis. Reviewed, dictated and finalized at location A. RIAL CHECKER
[2024-10-07 16:06] VITALS: BP 123/61; PULSE 85; RESP 16; TEMP 36.6; O2SAT 100
--- NOTE | 2024-10-07 16:47 | ED_ITS ---
HPI - Fall General Chief Complaint: Fall <JAKOB Cantor Last Filed: 10/07/24 16:56> Stated Complaint: 2 falls <JAKOB Cantor Last Filed: 10/07/24 16:56> Time Seen by Provider: 10/07/24 16:47 <JAKOB Cantor Last Filed: 10/07/24 16:56> Focused HPI: Patient is a 74 y/o female who presents to the ED with c/o extremity pain. Patient reports she tripped and fell at home on . She was seen in urgent care after that fall and received an Reinaldo bandage her left wrist. She does not believe that she had x-rays performed. She then had another trip and fall on Friday. She states she did not hit her head in either of the falls. She is not on any anticoagulation. Denies syncope/LOC. She states since then, she has been having diffuse pain in her body. Complains of pain mostly to her arms, thighs/hips. Has not taken anything for pain today. Denies neck or back pain, chest pain, abdominal pain. Denies dizziness, lightheadedness. GENERAL: Elderly, obese with BMI of 37.1, and in no acute distress. HEAD: Normocephalic, atraumatic. CHEST: Clear to auscultation. ?No respiratory distress. HEART: Regular rate and rhythm.? Peripheral pulses intact. MSK: TTP over L wrist, R anterior shoulder, R distal humerus. NEURO: ?Alert and oriented x3. Steady gait. Patient screened in triage and initial orders placed.? ?Additional care and disposition to be based upon?diagnostic testing and treatment. <JAKOB Cantor Last Filed: 10/07/24 16:56> Source: patient <JAKOB Cantor Last Filed: 10/07/24 16:56> Mode of arrival: ambulatory <JAKOB Cantor Last Filed: 10/07/24 16:56> Limitations: no limitations <JAKOB Cantor Last Filed: 10/07/24 16:56> Related Data Home Medications: Home Medications ?Medication ?Instructions ?Recorded ?Confirmed ?Last Taken ?Type acetaminophen 500 mg capsule 500 mg PO Q6H PRN Pain, Mild 10/11/21 06/12/23 10/10/21 History albuterol sulfate 90 mcg/actuation 2 puff inhalation Q4H PRN sOB, 10/11/21 06/12/23 06/12/23 History aerosol inhaler wheezing aspirin 81 mg chewable tablet 81 mg PO DAILY 10/11/21 06/12/23 06/12/23 History atorvastatin 40 mg tablet 40 mg PO DAILY 10/11/21 06/12/23 06/12/23 History carvedilol 25 mg tablet 25 mg PO BID 10/11/21 06/12/23 06/12/23 History duloxetine 30 mg capsule,delayed 30 mg PO DAILY 10/11/21 06/12/23 06/12/23 History release furosemide 20 mg tablet 20 mg PO DAILY 10/11/21 06/12/23 06/12/23 History metformin 500 mg tablet 500 mg PO BID 10/11/21 06/12/23 06/12/23 History guaifenesin 100 mg/5 mL oral liquid 200 mg PO Q4H PRN Cough 06/12/23 06/12/23 06/12/23 History <Gifty Luong PA-C - Last Filed: 10/07/24 16:56> Allergies/Adverse Reactions: Allergies Allergy/AdvReac Type Severity Reaction Status Date / Time No Known Allergies Allergy Verified 08/29/24 08:34 <Gifty Luong PA-C - Last Filed: 10/07/24 16:56> Review of Systems Review of Systems: All systems reviewed & are unremarkable except as noted in HPI and below <Chauncey Parmar MD - Last Filed: 10/08/24 12:24> PMFSH Past Medical History Medical History: Medical History COPD (chronic obstructive pulmonary disease) Hypertension T2DM (type 2 diabetes mellitus) <Gifty Luong PA-C - Last Filed: 10/07/24 16:56> Family History Family History: Family History Other Unknown family medical history <Gifty Luong PA-C - Last Filed: 10/07/24 16:56> Social History Social History: Social History Smoking status: Former smoker Alcohol intake: never Substance use: never Lack of Transportation: No Lack of Food: Never True Current Housing: I Have Housing Concerned About Future Housing: No Difficulty Paying Gas/Electric Bills: No Difficulty Paying for Meds: No Currently Unemployed: No Education: Decline to Answer Difficulty w/ Childcare or Family Care: No Spiritual care concerns: No <Gifty Luong PA-C - Last Filed: 10/07/24 16:56> Exam Narrative: APPEARANCE: Well appearing, no pain, no distress, well-nourished. HEAD: normocephalic, atraumatic. EYES: PERRLA/EOMI, conjunctivae clear. NOSE: Normal no drainage EARS:TMS clear with good light reflex. THROAT: Pharynx clear, no exudate. NECK: Supple. No adenopathy, no masses. RESPIRATORY: Airway patent, respirations nonlabored. Clear to auscultation bilaterally, no rales, rhonchi, wheezing. CARDIOVASCULAR: Regular rate and rhythm without murmurs rubs or gallops. ABDOMINAL: Soft, nontender, nondistended, normal bowel sounds MUSCULOSKELETAL: Normal range of motion of the left wrist with no tenderness to palpation. Low concern for acute fracture NEURO: Alert. Cranial nerves II through XII intact. Good gait. Good coordination SKIN: Warm, dry. Normal Color PSYCHIATRIC: Normal affect/mood. <Chauncey Parmar MD - Last Filed: 10/08/24 12:24> Course Vital Signs Vital signs: Vital Signs Temperature 97.9 F 10/07/24 16:06 Pulse Rate 85 10/07/24 16:06 Respiratory Rate 16 10/07/24 16:06 Blood Pressure 123/61 10/07/24 16:06 Pulse Oximetry 100 10/07/24 16:06 Temperature 97.9 F 10/07/24 16:06 Pulse Rate 85 10/07/24 16:06 Respiratory Rate 16 10/07/24 16:06 Blood Pressure 123/61 10/07/24 16:06 Pulse Oximetry 100 10/07/24 16:06 <Gifty Luong PA-C - Last Filed: 10/07/24 16:56> Vital Signs Temperature 97.9 F 10/07/24 16:06 Pulse Rate 85 10/07/24 16:06 Respiratory Rate 16 10/07/24 16:06 Blood Pressure 123/61 10/07/24 16:06 Pulse Oximetry 100 10/07/24 16:06 Temperature 97.9 F 10/07/24 16:06 Pulse Rate 85 10/07/24 16:06 Respiratory Rate 16 10/07/24 16:06 Blood Pressure 123/61 10/07/24 16:06 Pulse Oximetry 100 10/07/24 16:06 <Chauncey Parmar MD - Last Filed: 10/08/24 12:24> MDM - Fall MDM Narrative Medical decision making narrative: MSE by JADE in triage. <Gifty Luong PA-C - Last Filed: 10/07/24 16:56> MSE by JADE in triage. Wrist x-ray was concerning for possible age indeterminate fracture. Patient has normal range of motion no tenderness to palpation. Patient does have a history of falls. Suspect that the fractures are old. Patient prefers to not have a splint and states she feels comfortable with the Reinaldo wrap. Patient was encouraged of close follow-up with primary care physician and was encouraged to return to the emergency department if you have any worsening symptoms. <Chauncey Parmar MD - Last Filed: 10/08/24 12:24> Differential Diagnosis Differential diagnosis: Likely other (Wrist fracture, wrist contusion, old wrist fracture,) <Chauncey Parmar MD - Last Filed: 10/08/24 12:24> Imaging Data Radiologist's impression: Impressions Elbow X-Ray 10/07/24 18:02 IMPRESSION: 1. Mild right elbow joint osteoarthritis. Hip/Pelvis X-Ray 10/07/24 18:03 IMPRESSION: 1. Severe right hip osteoarthritis and moderate left hip osteoarthritis. Wrist X-Ray 10/07/24 18:04 IMPRESSION: 1. Age-indeterminate fracture deformity of distal radius. 2. Bone fragment distal to ulnar styloid, which may be an age-indeterminate avulsion fracture. 3. Polyarticular osteoarthritis. Shoulder X-Ray 10/07/24 18:07 IMPRESSION: 1. Polyarticular osteoarthritis. 2. Rotator cuff tear. <Chauncey Parmar MD - Last Filed: 10/08/24 12:24> Discharge Plan Discharge Clinical Impression: Injury of wrist, left <Gifty Luong PA-C - Last Filed: 10/07/24 16:56> Patient Disposition: Home, Self-Care <Gifty Luong PA-C - Last Filed: 10/07/24 16:56> Condition: Stable <Gifty Luong PA-C - Last Filed: 10/07/24 16:56> Instructions: Antibiotic Form, Fall Prevention (ED) <JAKOB Cantor Last Filed: 10/07/24 16:56> Additional Instructions: Reinaldo wrap for comfort. Have close follow-up with your primary care physician. If you have persistent pain of the left wrist you may need to have repeat imaging. If you have any question concerns review any worsening symptoms then please call or return to the emergency department. <Gifty Luong PA-C - Last Filed: 10/07/24 16:56> Patient Language: Slovenian <Gifty Luong PA-C - Last Filed: 10/07/24 16:56> Prescriptions: No Action atorvastatin 40 mg Tablet 40 mg PO DAILY metformin 500 mg Tablet 500 mg PO BID carvedilol 25 mg Tablet 25 mg PO BID aspirin 81 mg Tablet,Chewable 81 mg PO DAILY acetaminophen 500 mg Capsule 500 mg PO Q6H PRN (Reason: Pain, Mild) duloxetine 30 mg Capsule,Delayed Release(Dr/Ec) 30 mg PO DAILY furosemide 20 mg tablet 20 mg PO DAILY albuterol sulfate 90 mcg/actuation HFA aerosol inhaler 2 puff INHALATION Q4H PRN (Reason: sOB, wheezing) guaifenesin 100 mg/5 mL Liquid 200 mg PO Q4H PRN (Reason: Cough) albuterol sulfate 90 mcg/actuation HFA aerosol inhaler 2 puff inhalation Q4H PRN (Reason: shortness of breath or wheezing) Qty: 6.7 0RF prednisone 20 mg tablet 40 mg PO DAILY 5 Days Qty: 10 0RF albuterol sulfate 90 mcg/actuation HFA aerosol inhaler 2 puff inhalation QID PRN (Reason: shortness of breath or wheezing) Qty: 8.5 0RF nystatin 100,000 unit/gram ointment 1 applic topical BID Qty: 15 0RF zinc oxide 20 % paste 1 ea topical TID Qty: 57 0RF prednisone 20 mg tablet 40 mg PO DAILY 5 Days Qty: 10 0RF doxycycline hyclate 100 mg capsule 100 mg PO BID 5 Days Qty: 10 0RF <Gifty Luong PA-C - Last Filed: 10/07/24 16:56> Follow-up/Referrals: Tamie,MD Sacha [Primary Care Provider] - <Gifty Luong PA-C - Last Filed: 10/07/24 16:56>
[2024-10-07] MEDS: ACETAMINOPHEN 500 MG TABLET 1000 MG PO (18:14)
== END 2024-10-07 19:35 | disposition home or self-care (01) ==
PROVIDERS: Emergency Provider Emergency Medicine; PCP Internal Medicine
DX: S69.92XA Unspecified injury of left wrist, hand and finger(s), initial encounter (principal); M19.90 Unspecified osteoarthritis, unspecified site; J44.9 Chronic obstructive pulmonary disease, unspecified; I10 Essential (primary) hypertension; E11.9 Type 2 diabetes mellitus without complications; Z79.84 Long term (current) use of oral hypoglycemic drugs; W01.0XXA Fall on same level from slipping, tripping and stumbling without subsequent striking against object, initial encounter
CPT/HCPCS: 73030; 73080; 73110; 73521; 99284; A9270

== ENCOUNTER 2025-05-02 10:34 | Emergency (ER) | payer MEDICARE, BC, MEDICAID, SELFPAY ==
--- NOTE | ~2025-05-02 | XR_ITS ---
XR chest 2V Ordering provider: Cynthia Bernal MD History: 74 years Female with . SOB . Comparison: August 29, 2024 FINDINGS: MEDIASTINUM: The cardiac silhouette is not enlarged. LUNGS: No infiltrates, effusions or pneumothorax. Prominent markings in the left lower lobe. OTHER: No free air under the diaphragm. Degenerative changes of the spine. IMPRESSION: No acute cardiopulmonary pathology. Reviewed, dictated and finalized at location A.
--- NOTE | 2025-05-02 10:36 | ECG_ITS ---
Test Date: 2025-05-02 10:43:32 Measurements Intervals [place] Rate: 87 P: 9 WV: 175 QRS: -64 QRSD: 112 T: 85 QT: 376 QTc: 452 Interpretive Statements SINUS RHYTHM LEFT AXIS DEVIATION [QRS AXIS < -30] INCOMPLETE RIGHT BUNDLE BRANCH BLOCK [90+ ms QRS DURATION, TERMINAL R IN V1/V2, 40+ ms S IN I/aVL/V4/V5/V6] ABNORMAL ECG Compared to ECG 06/13/2024 22:37:58 NO SIGNIFICANT DIFFERENCE Electronically Signed On 05-03-2025 09:55:37 CDT by Joey Stringer M.D.
--- OUTSIDE RECORDS SUMMARY | 2025-05-02 10:38 | XMS_ITS | Clinical Summary ---
Author Organization [facility] Address [address] [place] [address] Care Team Providers Care Health Assistant Name Role Phone Sacha Willett MD Primary Care Provider [phone] Allergies No known active allergies Medications meclizine (ANTIVERT) 12.5 MG tabletIndication s:BPPV (benign paroxysmal positional vertigo), right Take 1 tablet (12.5 mg total) by mouth 3 (three) times daily as needed for Dizziness. 60 tablet 1 04/01/20 24 Active atorvastatin (LIPITOR) 40 MG tabletIndication s:Hyperlipidemia Take 1 tablet (40 mg total) by mouth nightly at bedtime. Indications: High Amount of Fats in the Blood 90 tablet 1 06/23/20 24 Active albuterol sulfate HFA 108 (90 Base) MCG/ACT inhalerIndicatio ns:Shortness of breath,Wheezing Indications: Shortness of breath, Wheezing IN 1 TO 2 PUFFS BY MOUTH EVERY 4 HOURS NEEDED FOR DIFFICULTY BREATHING 18 g 5 06/23/20 24 Active pantoprazole EC (PROTONIX) 40 MG tabletIndication s:Gastroesophage al Reflux Disease Take 1 tablet (40 mg total) by mouth 2 (two) times daily. Indications: Gastroesophageal Reflux Disease 180 tablet 3 06/23/20 24 Active vitamin D2, ergocalciferol, (DRISDOL) 1.25 mg capsuleIndicatio ns:Osteoarthriti s Take 1 capsule (50,000 Units total) by mouth every 7 days. Indications: Joint Damage causing Pain and Loss of Function 12 capsule 3 06/23/20 24 Active glipiZIDE (GLUCOTROL) 5 MG tabletIndication s:Type 2 diabetes mellitus with other specified complication, without long-term current use of insulin ([facility]) Take 1 tablet (5 mg total) by mouth 2 (two) times daily before meals. 180 tablet 1 06/23/20 24 Active Additional Information Patient not taking.Reported on 01/04/2025 Fluticasone-Umec lidin-Vilant (TRELEGY ELLIPTA) 200-62.5-25 MCG/ACT AEROSOL POWDER, BREATH ACTIVATEDIndicat ions:Centrilobul ar emphysema ([facility]/HCC) Inhale 1 puff into the lungs daily. 60 each 11 06/23/20 24 Active CPAP DEVICE, DME,Indications: Obstructive sleep apnea Apply 1 device at night and with naps as needed Autopap 4-20cm h20 1 Device 1 07/16/20 24 Active nystatin (MYCOSTATIN) ointment Apply topically 2 (two) times daily. 07/05/20 24 Active DULoxetine (CYMBALTA) 60 MG capsuleIndicatio ns:Depression Take 1 capsule (60 mg total) by mouth nightly at bedtime. Indications: Depression 90 capsule 1 09/22/20 24 Active furosemide (LASIX) 20 MG tabletIndication s:Lymphedema,Kathya sherie hypertension TAKE 1 TABLET BY MOUTH EVERY DAY 90 tablet 09/29/20 24 Active traMADol (ULTRAM) 50 MG tabletIndication s:Chronic Pain Take 1 tablet (50 mg total) by mouth daily as needed for Pain. Indications: Chronic Pain 30 tablet 01/05/20 25 Active carvedilol (COREG) 25 MG tabletIndication s:Primary hypertension TAKE 1 TABLET(25 MG) BY MOUTH TWICE DAILY WITH MEALS 180 tablet 1 01/05/20 25 Active losartan (COZAAR) 25 MG tabletIndication s:Hypertension associated with type 2 diabetes mellitus ([facility]) Take one tablet of losartan 25 mg daily along with losartan-hydrochlor thiazide 50-12.5 mg 90 tablet 1 01/05/20 25 Active losartan-hydroCH LOROthiazide (HYZAAR) 50-12.5 MG tabletIndication s:Hypertension Take 1 tablet by mouth daily. Indications: High Blood Pressure Take one tablet daily along with losartan 25 mg daily. 90 tablet 1 01/05/20 25 Active metFORMIN (GLUCOPHAGE) 500 MG tabletIndication s:Diabetes Mellitus Take 2 tablets (1,000 mg total) by mouth 2 (two) times daily. Indications: Diabetes 180 tablet 1 01/05/20 25 Active semaglutide (OZEMPIC) 2 MG/3ML injection (PEN)Indications :Diabetes Mellitus Inject 0.5 mg into the skin every 7 days. Indications: Diabetes 9 mL 02/03/20 25 Active Active Problems Problem Noted Date Diagnosed Date Chronic obstructive pulmonar y disease, unspecified COPD type ([facility]) 07/15/2024 Acute pain of right shoulder 07/15/2024 Acute pain of left shoulder 07/15/2024 BPPV (benign paroxysmal positional vertigo), rig ht 04/02/2024 Obstructive sleep apnea 04/01/2024 Type 2 diabetes mellitus wit h other specified complication, without long-term current use of insulin ([facility]) 04/01/2024 Mild reactive airways diseas e, unspecified whether persistent ([facility]) 04/01/2024 Primary osteoarthritis of knee, unspecified late rality 04/01/2024 Hypertension associated with type 2 diabetes mellitus ([facility]) 04/01/2024 Morbid (severe) obesity due to excess calories 0 04/01/2024 Body mass index (BMI) 40.0-44.9, adult 4 Encounters Date Type Department Care Team Description 02/02/2025 Telephone [facility] [place] [address] [address] [facility] [address] [place] [address] Sacha Willett MD Medication 02/01/2025 Telephone [facility] [place] [address] [place] [address] Sacha Willett MD Medication Problem from Last 3 Months Immunizations Immunization Administration Dates Next Due Influenza Adult (Generic) 06/27/2022 PFIZER COVID-19 (ORIGINAL FO RMULATION, PURPLE CAP) mRNA, LNP-S, PF, 30 MCG/0.3 ML DOSE 12/08/2021,01/15/2021,12/25/2020 Pneumococcal (Pneumovax 23) 12/05/2023 Family History Medical History Relation Comments Heart Disease Brother Diabetes Father Heart Disease Father Hypertension Father Diabetes Mother Hypertension Mother Relation Status Comments Brother Father Mother Social History Tobacco Use Types Packs/Day Years Used Date Smoking Tobacco: Former Cigarettes 1 30 0 02/18/1976 - 02/17/2006 Smokeless Tobacco: Never Tobacco Cessation:Counseling Given: Yes Comments:Counseled by Dr. Willett. Alcohol Use Standard Drinks/Week Comments Never 0 (1 standard drink = 0.6 oz pur e alcohol) OASIS D0700: Social Isolation Answer Da te Recorded Frequency of experiencing loneliness or isolatio n Never 08/19/2023 OASIS A1250: Transportation Answer Date Recorded Lack of Transportation (Medical) No 08/19/2023 Lack of Transportation (Non-Medical) No 08/19/2023 Patient Unable or Declines to Respond No 08/19/2023 OASIS B1300: Health Literacy Answer Yasmani e Recorded Frequency of needing help to read materials from doctor or pharmacy Never 08/19/2023 PHQ-2 Answer Date Recorded Patient Health Questionnaire-2 Score 2 12/28/2024 Comments No Sex and Gender Information Value Date Recorded Sex Assigned at Female 01/04/2025 11:22 AM CDT Legal Sex Female 9:05 AM CDT Gender Identity Female 01/04/2025 11:22 AM CDT Sexual Orientation Straight 01/04/2025 11 :22 AM CDT Last Filed Vital Signs Vital Sign Reading Time Taken Comments Blood Pressure 137/87 01/04/2025 11:25 AM CDT Pulse 67 01/04/2025 11:25 AM CDT Temperature 37 C (98.6 F) 01/04/2025 11:25 AM CDT Respiratory Rate 16 01/04/2025 11:25 AM CDT Oxygen Saturation 99% 01/04/2025 11:25 AM CDT Inhaled Oxygen Concentration - - Weight 97.6 kg (215 lb 3.2 oz) 01/04/2025 11:25 AM CDT Height 154.9 cm (5' 1) 01/04/2025 11:25 AM CDT Body Mass Index 40.66 01/04/2025 11:25 AM CDT Plan of Treatment Upcoming Encounters Date Type Department Care Team (Late st Contact Info) Description 05/17/2025 10:00 AM CDT Office Visit [facility] [place] [address] [address] [address] [place] [address] Sacha Willett MD [address] [facility] [address] [place] [address] Health Maintenance Due Date Last Done Comments Diabetes: Retinopathy Eye Exam 1966 DTaP, Tdap and Td Vaccines ( 1 - Tdap) 1967 Zoster Vaccines (1 of 2) 1998 Annual Medicare Wellness Visit 2013 Dexa Scan (General) 2013 RSV Immunization or 60+ Years (1 - 1-dose 75+ series) 2023 COVID-19 Vaccine (4 - 2023-2 5 season) 2024 12/08/2021, 01/15/2021, 12/25/2020 Pneumococcal Vaccine: 50+ Years (2 of 2 - PCV) 12/05/2024 12/05/2023 Hemoglobin A1C 03/23/2025 09/22/2024, 06/23/2024, 07/31/2023 Kidney Health Evaluation 06/23/2025 06/23/2024 Lipid Panel 06/23/2025 06/23/2024, 07/31/2023 Colorectal Cancer Screening FIT-DNA (3 Years) Discontinued 12/17/2023, 12/17/2023 Hepatitis C Completed 06/23/2024, 04/01/2024 PHQ-2 (Physician [place]) Completed 12/28/2024 Meningococcal B Vaccine Aged Out No l onger eligible based on patient's age to complete this topic Meningococcal Vaccine Aged Out No miriam mihir eligible based on patient's age to complete this topic RSV Immunizations Under 20 Months Aged Out No longer eligible based on patient's age to complete this topic Procedures Procedure Name Priority Date/Time Associated Diagnosis Comments HEMOGLOBIN, GLYCOSYLATED Routine 09/22/2024 Type 2 diabetes mellitus with other specified complication, without long-term current use of insulin ([facility]) HEPATITIS C ANTIBODY Routine 06/23/2024 2:46 PM CDT General medical exam Drug therapy LIPID PANEL Routine 06/23/2024 2:46 PM CDT Hyperlipidemia associated with type 2 diabetes mellitus General medical exam Drug therapy COLOGUARD (EXACT SCIENCE) Routine 12/17/2023 2:00 PM FOOD SAFETY SPECIALIST Screen for colon cancer from Last 3 Months or Most Recently Relevant to Health Maintenance Results * (ABNORMAL) HEMOGLOBIN, GLYCOSYLATED (09/22/2024) HGB A1C 8.0(A) % [id number], [place] 09/22/2024 Sacha Willett MD LABORATORY Final Result -[id number] [place] [address] [facility] [address] [place] [address], * LIPID PANEL (06/23/2024 2:46 PM CDT) CHOLESTEROL 157 <200 MG/DL 06/23/2024 8:03 PM CDT [facility] TRIGLYCERIDES 106 <150 MG/DL 06/23/2024 8:03 PM CDT [facility] HDL 74 >40 MG/DL 06/23/2024 8:03 PM CDT [facility] LDL-C 62 <100 MG/DL 06/23/2024 8:03 PM CDT [facility] VLDL CALCULATION 21 5 - 28 MG/DL 06/23/2024 8:03 PM CDT [facility] CHOL/HDL RATIO 2.1 0.0 - 4.0 06/23/2024 8:03 PM CDT [facility] LDL/HDL 0.8 0.41 - 2.13 06/23/2024 8:03 PM CDT [facility] NON HDL CHOLESTEROL 83 <140 MG/DL 06/23/2024 8:03 PM CDT [facility] 06/23/2024 2:46 PM CDT us Sacha Willett MD LABORATORY Final Result Performing Organization Address City[facility] Co de Phone Number [facility] [address] [place] [address], [place] [phone] * HEPATITIS C ANTIBODY (06/23/2024 2:46 PM CDT) [facility] HEPATITIS C AB NON-REACTI VE NON-REACT [place] 06/23/2024 9:41 PM CDT [facility] Comment: ANTIBODIES TO HCV NOT DETECTED. DOES NOT EXCLUDE THE POSSIBILITY OF EXPOSURE TO HCV. 06/23/2024 2:46 PM CDT us Sacha Willett MD LABORATORY Final Result Performing Organization Address [facility] Co de Phone Number [facility] [address] [place] [address], [place] [phone] * COLOGUARD (EXACT SCIENCE) (12/17/2023 2:00 PM FOOD SAFETY SPECIALIST) [facility] COLOGUARD RESULT Negative Negative [facility] (CLIA #:[id number]) Comment: NEGATIVE TEST RESULT. A negative Cologuard result indicates a low likelihood that a colorectal cancer (CRC) or advanced adenoma (adenomatous polyps with more advanced pre-malignant features) is present. The chance that a person with a negative Cologuard test has a colorectal cancer is less than 1 in 1500 (negative predictive value >99.9%) or has an advanced adenoma is less than 5.3% (negative predictive value 94.7%). These data are based on a prospective cross-sectional study of 10,000 individuals at average risk for colorectal cancer who were screened with both Cologuard and colonoscopy. (Gold Lam al, N Engl J Med 2014;370(14):9598-6299) The normal value (reference range) for this assay is negative. COLOGUARD RE-SCREENING RECOMMENDATION: Periodic colorectal cancer screening is an important part of preventive healthcare for asymptomatic individuals at average risk for colorectal cancer. Following a negative Cologuard result, the [place] Cancer Society and U.S. Multi-Society Task Force screening guidelines recommend a Cologuard re-screening interval of 3 years. References: [place] [employer] Guideline for Colorectal Cancer Screening: https://www.cancer.org/cancer/lxlcp-thbkll-xnkkuk/brbcnsujs-piczulnud-ummkzet/ac s-rec ommendations.html.; Chidi DK, Milagros GUZMAN, Trace MimsK, Colorectal Cancer Screening: Recommendations for Physicians and Patients from the U.S. Multi-Society Task Force on Colorectal Cancer Screening , Am J Gastroenterology 2017; 112:1328-2114. TEST DESCRIPTION: Composite algorithmic analysis of stool DNA-biomarkers with hemoglobin immunoassay. Quantitative values of individual biomarkers are not reportable and are not associated with individual biomarker result reference ranges. Cologuard is intended for colorectal cancer screening of adults of either sex, 45 years or older, who are at average-risk for colorectal cancer (CRC). Cologuard has been approved for use by the U.S. FDA. The performance of Cologuard was established in a cross sectional study of average-risk adults aged 50-84. Cologuard performance in patients ages 45 to 49 years was estimated by sub-group analysis of near-age groups. Colonoscopies performed for a positive result may find as the most clinically significant lesion: colorectal cancer [4.0%], advanced adenoma (including sessile serrated polyps greater than or equal to 1cm diameter) [20%] or non- advanced adenoma [31%]; or no colorectal neoplasia [45%]. These estimates are derived from a prospective cross-sectional screening study of 10,000 individuals at average risk for colorectal cancer who were screened with both Cologuard and colonoscopy. (Gold Lam al, N Engl J Med 2014;370(14):0000-9289.) Cologuard may produce a false negative or false positive result (no colorectal cancer or precancerous polyp present at colonoscopy follow up). A negative Cologuard test result does not guarantee the absence of CRC or advanced adenoma (pre-cancer). The current Cologuard screening interval is every 3 years. ([place] [employer] Society and U.S. Multi-Society Task Force). Cologuard performance data in a 10,000 patient pivotal study using colonoscopy as the reference method can be accessed at the following location: www.[employer]/results. Additional description of the Cologuard test process, warnings and precautions can be found at www.cologuard.com. STOOL STOOL SPECIMEN / Unknown 12/17/2023 2:00 PM FOOD SAFETY SPECIALIST 12/18/2023 10:00 AM FOOD SAFETY SPECIALIST Sacha Willett MD BODY FLUIDS AND STOOLS ORDERABLE S Final Result [facility] ([facility]) [address] [place] [address], [employer] (CLIA #:[id number]) [address] [place] [address] from Last 3 Months or Most Recently Relevant to Health Maintenance Insurance [facility] MEDICARE Advance Directives * Full Code (Latest Code Status on File) Date Activated Date Inactivated Comments 07/28/2023 11:25 AM 11/25/2023 6:38 PM Care Teams Health Assistant Relationship Specialty Start Date End Date Sacha Willett MD [address] [address] PCP - General INTERNAL MEDICINE 03/10/23
--- OUTSIDE RECORDS SUMMARY | 2025-05-02 10:38 | XMS_ITS | Clinical Summary ---
Author Organization [facility] Address [address] [place] [address] Care Team Providers Care Equal Opportunity Officer Name Role Phone No, Physician Primary Care Provider [phone] Allergies No known active allergies Medications traMADoL (ULTRAM) 50 mg tablet Take 1 tablet (50 mg total) by mouth every 6 (six) hours as needed for pain 15 tablet 02/16/2023 Active Social History Tobacco Use Types Packs/Day Years Used Date Smoking Tobacco: Never Assessed Personal Safety Answer Date Recorded Getting School Help Needed Not on file 04/11 Comments Unknown Sex and Gender Information Value Date Recorded Sex Assigned at Not on file Legal Sex Female 2:24 PM CDT Gender Identity Not on file Sexual Orientation Not on file Last Filed Vital Signs Vital Sign Reading Time Taken Comments Blood Pressure 181/86 02/16/2023 4:52 PM CDT Pulse 66 02/16/2023 4:52 PM CDT Temperature 36.7 C (98 F) 02/16/2023 2:28 PM CDT Respiratory Rate 18 02/16/2023 4:52 PM CDT Oxygen Saturation 98% 02/16/2023 4:52 PM CDT Inhaled Oxygen Concentration - - Weight 101.1 kg (222 lb 14.2 oz) 02/16/2023 2:28 PM CDT Height 157.5 cm (5' 2) 02/16/2023 2:28 PM CDT Body Mass Index 40.77 02/16/2023 2:28 PM CDT Plan of Treatment Health Maintenance Due Date Last Done Comments Depression Screening 1948 Fall Risk Assessment 1950 Hepatitis C Screening 1950 Osteoporosis Screening-Bone Density Scan 1948 DTaP/Tdap/Td Vaccine (1 - Tdap) 1959 Hepatitis B Screening 1966 Pneumococcal vaccine 65+ (1 of 1 - PCV) 1998 Zoster Vaccine (1 of 2) 1998 Well Visit 65+ 2013 Covid-19 Vaccine (4 - season) 2024 12/08/2021, 01/15/2021, 12/25/2020 Influenza Vaccine (Season Ended) 2025 06/27/20 22 Insurance MEDICARE [facility] Care Teams Equal Opportunity Officer Relationship Specialty Start Date End Date No, Physician PCP - General 02/16/23
--- OUTSIDE RECORDS SUMMARY | 2025-05-02 10:38 | XMS_ITS | Referral Summary ---
Author Organization [facility] Address [address] [place] [address] Care Team Providers Care Word Processor Name Role Phone No, Physician Primary Care Provider [phone] Allergies No known active allergies Medications traMADoL [...] 02/16/2023 2:28 PM CDT Plan of Treatment Not on file Insurance MEDICARE [facility] Care Teams Word Processor Relationship Specialty Start Date End Date No, Physician PCP - General 02/16/23
[2025-05-02 10:39] VITALS: BP 186/89; PULSE 87; RESP 20; TEMP 36.4; O2SAT 97
[2025-05-02 10:46] VITALS: O2SAT 97
--- NOTE | 2025-05-02 10:55 | PC.NURSE ---
lab called to add on BNP and Trop I
[2025-05-02 10:58] LABS: Hematocrit 42.8 % (37.0-47.0); Hemoglobin 13.6 g/dL (12.0-15.0); Immature Granulocyte Percent A 0.2 % (0-0.5); Lymphocytes Absolute Auto 2.20 K/mm3 (0.9-3.2); Mean Corpuscular HGB Conc 31.8 g/dl (32-36); Mean Corpuscular Hemoglobin 32.2 pg (26-34); Mean Corpuscular Volume 101.4 fl (80-100); Nucleated Red Blood Cells Absolute Auto 0.000 K/mm3 (0.0-0.012); Nucleated Red Blood Cells Perc 0.0 % (0.0-0.2); Platelet Count Result 279 k/mm3 (150-375); Red Blood Count 4.22 M/mm3 (4.2-5.4); White Blood Count 5.3 K/mm3 (4.5-10.0)
--- NOTE | 2025-05-02 10:58 | ED.SOB ---
HPI - SOB/Dyspnea General Chief Complaint: Shortness of Breath/Dyspnea Stated Complaint: SOB, body ache Time Seen by Provider: 05/02/25 10:47 History of Present Illness HPI Narrative: Patient states for the last few days she has had some chest irritation, slight shortness of breath, and has noticed her legs have been swollen. Related Data Home Medications ?Medication ?Instructions ?Recorded ?Confirmed ?Last Taken ?Type acetaminophen 500 mg capsule 500 mg PO Q6H PRN Pain, Mild 10/11/21 05/02/25 10/10/21 History albuterol sulfate 90 mcg/actuation 2 puff inhalation Q4H PRN sOB, 10/11/21 06/12/23 06/12/23 History aerosol inhaler wheezing aspirin 81 mg chewable tablet 81 mg PO DAILY 10/11/21 06/12/23 06/12/23 History atorvastatin 40 mg tablet 40 mg PO DAILY 10/11/21 06/12/23 06/12/23 History carvedilol 25 mg tablet 25 mg PO BID 10/11/21 06/12/23 06/12/23 History duloxetine 30 mg capsule,delayed 30 mg PO DAILY 10/11/21 06/12/23 06/12/23 History release furosemide 20 mg tablet 20 mg PO DAILY 10/11/21 06/12/23 06/12/23 History metformin 500 mg tablet 500 mg PO BID 10/11/21 06/12/23 06/12/23 History guaifenesin 100 mg/5 mL oral liquid 200 mg PO Q4H PRN Cough 06/12/23 06/12/23 06/12/23 History Allergies Allergy/AdvReac Type Severity Reaction Status Date / Time No Known Allergies Allergy Verified 05/02/25 10:45 PMFSH Past Medical History Medical History COPD (chronic obstructive pulmonary disease) Hypertension T2DM (type 2 diabetes mellitus) Family History Family History Other Unknown family medical history Social History Social History Smoking status: Former smoker Alcohol intake: never Substance use: never Lack of Transportation: No Lack of Food: Never True Current Housing: I Have Housing Concerned About Future Housing: No Difficulty Paying Gas/Electric Bills: No Difficulty Paying for Meds: No Currently Unemployed: No Education: Decline to Answer Difficulty w/ Childcare or Family Care: No Spiritual care concerns: No Course Vital Signs Vital signs: Vital Signs Temperature 97.5 F L 05/02/25 10:39 Pulse Rate 87 05/02/25 10:39 Respiratory Rate 20 05/02/25 10:39 Blood Pressure 186/89 H 05/02/25 10:39 Pulse Oximetry 97 05/02/25 10:39 Oxygen Delivery Room Air 05/02/25 10:39 Temperature 97.5 F L 05/02/25 10:39 Pulse Rate 87 05/02/25 12:45 Respiratory Rate 18 05/02/25 12:45 Blood Pressure 156/87 H 05/02/25 12:45 Pulse Oximetry 98 05/02/25 12:45 Oxygen Delivery Room Air 05/02/25 10:46 MDM - SOB/Dyspnea MDM Narrative Medical decision making narrative: ED COURSE AND MEDICAL DECISION MAKINF presenting with chest irritation. EKG done in triage negative for acute ischemic changes. Cardiac workup is initiated. EKG: Performed in triage and interpreted by me. Normal sinus rhythm. Rate 87. Left axis. AK normal. QRS duration normal. QTc normal. No pathologic Q waves. No ST segment elevation or depression to suggest acute ischemia. No RV strain pattern. HEART score is 3 with no acute ischemic changes on EKG and negative troponin making ACS unlikely. No lower extremity swelling/DVT symptoms, and she has normal vital signs here making PE unlikely. Presentation not consistent with dissection or aneurysm without radiation of pain or pulse deficits. CXR negative for mediastinal widening. No abdominal pain or signs of sepsis that would be concerning for esophageal perforation or mediastinitis. No cardiomegaly or JVD to suggest pericardial effusion/tamponade. She is given a breathing treatment and some Tylenol here on re-evaluation, she feels better. She is ambulating without difficulties, has nonlabored respirations, labs within acceptable limits. On repeat evaluation just prior to discharge, the patient is no acute distress. I had a long discussion with the patient and with shared decision making, she is comfortable with outpatient management. She was given clear return instructions by myself in person as well as on discharge paperwork. Lab Data 05/02/25 10:50 05/02/25 10:50 Labs: Lab Results 05/02/25 05/02/25 05/02/25 Range/Units 10:50 10:50 10:50 WBC 5.3 (4.5-10.0) K/mm3 RBC 4.22 (4.2-5.4) M/mm3 Hgb 13.6 (12.0-15.0) g/dL Hct 42.8 (37.0-47.0) % MCV 101.4 H (80-100) fl MCH 32.2 (26-34) pg MCHC 31.8 L (32-36) g/dl RDW 13.2 (11.5-14.5) % Plt Count 279 (150-375) k/mm3 MPV 9.1 (7.4-10.4) fl Immature Gran % (Auto) 0.2 (0-0.5) % Neut % (Auto) 45.3 L (45.5-73.1) % Lymph % (Auto) 41.2 (18.3-44.2) % [place] % (Auto) 7.9 (2.6-8.5) % Eos % (Auto) 4.5 H (0-4.4) % Baso % (Auto) 0.9 (0.2-1.2) % Lymph # (Auto) 2.20 (0.9-3.2) K/mm3 [place] # (Auto) 0.4 (0.1-0.6) K/mm3 Eos # (Auto) 0.2 (0-0.3) K/mm3 Baso # (Auto) 0.1 (0.0-0.1) K/mm3 Abs Immat Gran (auto) 0.01 (0.00-0.031) K/mm3 Absolute Neuts (auto) 2.4 (1.3-6.7) K/mm3 Absolute Nucleated RBC 0.000 (0.0-0.012) K/mm3 Nucleated RBC % 0.0 (0.0-0.2) % Sodium 139 (137-145) mmol/L Potassium 4.0 (3.4-5.0) mmol/L Chloride 102 (98-107) mmol/L Carbon Dioxide 26 (22-30) mmol/L Anion Gap 11 (4-12) mmol/L BUN 10 (7-17) mg/dL Creatinine 0.77 (0.7-1.0) mg/dL Estim Creat Clear Calc 59 ml/min Estimated GFR > 60 (59 - ) Glucose 138 H (65-110) mg/dL Calcium 9.3 (8.4-10.2) mg/dL Total Bilirubin 0.8 (0.2-1.3) mg/dL AST 31 (14-36) U/L ALT 17 (6-35) U/L Alkaline Phosphatase 75 (38-126) U/L Troponin I < 0.012 Cancelled (0.000-0.034) ng/mL NT-Pro-B Natriuret Pep < 20 Cancelled (19.9-100) pg/mL Total Protein 8.4 H (6.3-8.2) g/dL Albumin 4.2 (3.5-5.1) g/dL Discharge Plan Discharge Clinical Impression: Chest pain Qualifiers: Chest pain type: unspecified Qualified Code(s): R07.9 - Chest pain, unspecified Patient Disposition: Home Condition: Stable Instructions: Chest Pain (ED) Additional Instructions: Please follow up with your doctor; you can always return for any further issues. Continue taking your medications as prescribed especially your blood pressure medications. Patient Language: Austrian Prescriptions: New albuterol sulfate 90 mcg/actuation HFA aerosol inhaler 2 puff inhalation QID PRN (Reason: shortness of breath or wheezing) Qty: 8.5 0RF No Action atorvastatin 40 mg Tablet 40 mg PO DAILY metformin 500 mg Tablet 500 mg PO BID carvedilol 25 mg Tablet 25 mg PO BID aspirin 81 mg Tablet,Chewable 81 mg PO DAILY acetaminophen 500 mg Capsule 500 mg PO Q6H PRN (Reason: Pain, Mild) duloxetine 30 mg Capsule,Delayed Release(Dr/Ec) 30 mg PO DAILY furosemide 20 mg tablet 20 mg PO DAILY albuterol sulfate 90 mcg/actuation HFA aerosol inhaler 2 puff INHALATION Q4H PRN (Reason: sOB, wheezing) guaifenesin 100 mg/5 mL Liquid 200 mg PO Q4H PRN (Reason: Cough) albuterol sulfate 90 mcg/actuation HFA aerosol inhaler 2 puff inhalation Q4H PRN (Reason: shortness of breath or wheezing) Qty: 6.7 0RF prednisone 20 mg tablet 40 mg PO DAILY 5 Days Qty: 10 0RF albuterol sulfate 90 mcg/actuation HFA aerosol inhaler 2 puff inhalation QID PRN (Reason: shortness of breath or wheezing) Qty: 8.5 0RF nystatin 100,000 unit/gram ointment 1 applic topical BID Qty: 15 0RF zinc oxide 20 % paste 1 ea topical TID Qty: 57 0RF prednisone 20 mg tablet 40 mg PO DAILY 5 Days Qty: 10 0RF doxycycline hyclate 100 mg capsule 100 mg PO BID 5 Days Qty: 10 0RF Follow-up/Referrals: Tamie,MD Sacha [Primary Care Provider] - 2 Days
[2025-05-02 11:01] VITALS: BP 161/78; PULSE 86; RESP 19; O2SAT 98
--- OUTSIDE RECORDS SUMMARY | 2025-05-02 11:10 | XMS_ITS | Clinical Summary ---
Author Organization [facility] Address [address] [place] [address] Care Team Providers Care Ssn/Ssbn Weapons Equipment Operator Name Role Phone Sacha Willett MD Primary Care Provider [phone] Allergies No known active allergies Medications meclizine [...] complication, without long-term current use of insulin ([facility]) Take 1 tablet (5 mg total) by mouth 2 (two) times daily before meals. 180 tablet 1 06/23/20 24 Active Additional Information Patient not taking.Reported on 01/04/2025 Fluticasone-Umec lidin-Vilant (TRELEGY ELLIPTA) 200-62.5-25 MCG/ACT AEROSOL POWDER, BREATH ACTIVATEDIndicat ions:Centrilobul ar emphysema ([facility] HHS/HCC) Inhale 1 puff into the [...] s:Hypertension associated with type 2 diabetes mellitus ([facility]) Take one tablet of losartan 25 [...] obstructive pulmonar y disease, unspecified COPD type ([facility]) 07/15/2024 Acute pain of right shoulder 07/15/2024 Acute pain of left shoulder 07/15/2024 BPPV (benign paroxysmal positional vertigo), rig ht 04/02/2024 Obstructive sleep apnea 04/01/2024 Type 2 diabetes mellitus wit h other specified complication, without long-term current use of insulin ([facility]) 04/01/2024 Mild reactive airways diseas e, unspecified whether persistent ([facility]) 04/01/2024 Primary osteoarthritis of knee, unspecified late rality 04/01/2024 Hypertension associated with type 2 diabetes mellitus ([facility]) 04/01/2024 Morbid (severe) obesity due to excess calories 0 04/01/2024 Body mass index (BMI) 40.0-44.9, adult 4 Encounters Date Type Department Care Team Description 02/02/2025 Telephone [facility] [place] [address] [facility] [address] [place] [address] Sacha Willett MD Medication 02/01/2025 [facility] [place] [address] [place] [address] Sacha Willett MD Medication Problem from Last [...] Description 05/17/2025 10:00 AM CDT Office Visit [facility] [place] [address] [address] [address] [place] [address] Sacha Willett MD [address] [place] [address] Health Maintenance Due Date Last Done Comments [...] Hepatitis C Completed 06/23/2024, 04/01/2024 PHQ-2 (Physician [place]) Completed 12/28/2024 Meningococcal B Vaccine Aged Out [...] complication, without long-term current use of insulin ([facility]) HEPATITIS C ANTIBODY Routine 06/23/2024 2:46 PM CDT General medical exam Drug therapy LIPID PANEL Routine 06/23/2024 2:46 PM CDT Hyperlipidemia associated with type 2 diabetes mellitus General medical exam Drug therapy COLOGUARD (EXACT SCIENCE) Routine 12/17/2023 2:00 PM HAND SPRAY OPERATOR Screen for colon cancer from Last 3 Months or Most Recently Relevant to Health Maintenance Results * (ABNORMAL) HEMOGLOBIN, GLYCOSYLATED (09/22/2024) HGB A1C 8.0(A) % MG-[address] [place] 09/22/2024 Sacha Willett MD LABORATORY Final Result -[address] [place] [address] [facility] [address] [place] [address], * LIPID PANEL (06/23/2024 2:46 PM CDT) CHOLESTEROL 157 <200 MG/DL 06/23/2024 8:03 PM CDT [facility] TRIGLYCERIDES 106 <150 MG/DL 06/23/2024 8:03 PM CDT [facility] HDL 74 >40 MG/DL 06/23/2024 8:03 PM CDT [facility] LDL-C 62 <100 MG/DL 06/23/2024 8:03 PM CDT [facility] VLDL CALCULATION 21 5 - 28 MG/DL 06/23/2024 8:03 PM CDT [facility] CHOL/HDL RATIO 2.1 0.0 - 4.0 06/23/2024 8:03 PM CDT [facility] LDL/HDL 0.8 0.41 - 2.13 06/23/2024 8:03 PM CDT [facility] NON HDL CHOLESTEROL 83 <140 MG/DL 06/23/2024 8:03 PM CDT [facility] 06/23/2024 2:46 PM CDT us Sacha Willett MD LABORATORY Final Result Performing Organization Address City/[facility] Co de Phone Number [facility] [address] [place] [address], [place] [phone] * HEPATITIS C ANTIBODY (06/23/2024 2:46 PM CDT) [facility] HEPATITIS C AB NON-REACTI VE NON-REACT [place] 06/23/2024 9:41 PM CDT [facility] Comment: ANTIBODIES TO HCV NOT DETECTED. DOES NOT EXCLUDE THE POSSIBILITY OF EXPOSURE TO HCV. 06/23/2024 2:46 PM CDT us Sacha Willett MD LABORATORY Final Result Performing Organization Address City/[facility] Co de Phone Number [facility] [address] [place] [address], [place] [phone] * COLOGUARD (EXACT SCIENCE) (12/17/2023 2:00 PM HAND SPRAY OPERATOR) [facility] COLOGUARD RESULT Negative Negative [employer] (CLIA #:[id number]) Comment: NEGATIVE TEST RESULT. A negative Cologuard [...] (Gold Lam al, N Engl J Med 2014;370(14):3894-9802) The normal value (reference range) for this assay is negative. COLOGUARD RE-SCREENING RECOMMENDATION: Periodic colorectal cancer screening is an important part of preventive healthcare for asymptomatic individuals at average risk for colorectal cancer. Following a negative Cologuard result, the [place] [employer] and U.S. Multi-Society Task Force screening guidelines recommend a Cologuard re-screening interval of 3 years. References: [place] [employer] Guideline for Colorectal Cancer Screening: https://www.cancer.org/cancer/mweio-ngewce-sylylg/wlnnkyoiq-rznhrkedx-adbnwsw/ac s-rec ommendations.html.; Chidi DK, Milagros GUZMAN, Trace MimsK, Colorectal Cancer Screening: Recommendations for Physicians and Patients from the U.S. Multi-Society Task Force on Colorectal Cancer Screening , Am J Gastroenterology 2017; 112:9806-3634. TEST DESCRIPTION: Composite algorithmic analysis of stool [...] (Gold Lam al, N Engl J Med 2014;370(14):0191-0068.) Cologuard may produce a false negative or false positive result (no colorectal cancer or precancerous polyp present at colonoscopy follow up). A negative Cologuard test result does not guarantee the absence of CRC or advanced adenoma (pre-cancer). The current Cologuard screening interval is every 3 years. ([place] [employer] and U.S. Multi-Society Task Force). Cologuard performance data in a 10,000 patient pivotal study using colonoscopy as the reference method can be accessed at the following location: www.[facility]/results. Additional description of the Cologuard test process, warnings and precautions can be found at www.cologuard.com. STOOL STOOL SPECIMEN / Unknown 12/17/2023 2:00 PM HAND SPRAY OPERATOR 12/18/2023 10:00 AM HAND SPRAY OPERATOR Sacha Willett MD BODY FLUIDS AND STOOLS ORDERABLE S Final Result [employer] ([facility] [address]) [address] [place] [address], [employer] (CLIA #:[id number]) [address] [place] [address] from Last 3 Months or Most Recently Relevant to Health Maintenance Insurance [facility] MEDICARE Advance Directives * Full Code (Latest Code Status on File) Date Activated Date Inactivated Comments 07/28/2023 11:25 AM 11/25/2023 6:38 PM Care Teams Ssn/Ssbn Weapons Equipment Operator Relationship Specialty Start Date End Date Sacha Willett MD [address] [address] PCP - General INTERNAL MEDICINE 03/10/23
--- OUTSIDE RECORDS SUMMARY | 2025-05-02 11:10 | XMS_ITS | Referral Summary ---
Author Organization [facility] Address [address] [place] [id number] Care Team Providers Care Game Producer Name Role Phone No, Physician Primary Care Provider [phone] Allergies No known active allergies Medications traMADoL [...] of Treatment Not on file Insurance MEDICARE [facility] Care Teams Game Producer Relationship Specialty Start Date End Date No, Physician PCP - General 02/16/23
--- OUTSIDE RECORDS SUMMARY | 2025-05-02 11:10 | XMS_ITS | Clinical Summary ---
Author Organization [facility] Address [address] [place] [address] Care Team Providers Care Associate Artistic Director Name Role Phone No, Physician Primary Care Provider [phone] Allergies No known active allergies Medications traMADoL [...] (Season Ended) 2025 06/27/20 22 Insurance MEDICARE [facility] Care Teams Associate Artistic Director Relationship Specialty Start Date End Date No, Physician PCP - General 02/16/23
[2025-05-02 11:41] LABS: Alanine Aminotransferase 17 U/L (6-35); Albumin Level 4.2 g/dL (3.5-5.1); Alkaline Phosphatase 75 U/L (38-126); Anion Gap 11 mmol/L (4-12); Aspartate Amino Transferase 31 U/L (14-36); Bilirubin,Total 0.8 mg/dL (0.2-1.3); Blood Urea Nitrogen 10 mg/dL (7-17); Calcium 9.3 mg/dL (8.4-10.2); Carbon Dioxide 26 mmol/L (22-30); Chloride 102 mmol/L (98-107); Estimated CRCL calculation 59 ml/min; Estimated Glomerular Filt Rate > 60; Glucose 138 mg/dL (65-110); Potassium 4.0 mmol/L (3.4-5.0); Sodium 139 mmol/L (137-145); Total Protein 8.4 g/dL (6.3-8.2)
[2025-05-02 11:48] LABS: NT Pro B Type Natriuretic Pept < 20 pg/mL (19.9-100); Troponin I < 0.012 ng/mL (0.000-0.034)
[2025-05-02 12:30] VITALS: PULSE 75; RESP 20
[2025-05-02] MEDS: IPRATROPIUM 0.5 MG/ALBUTEROL SULFATE 2.5 MG AMPUL.NEB 3 ML INHALATION (12:30)
[2025-05-02] MEDS: ACETAMINOPHEN 325 MG TABLET 650 MG PO (12:40)
[2025-05-02 12:45] VITALS: BP 156/87; PULSE 87; RESP 18; O2SAT 98
== END 2025-05-02 12:46 | disposition home or self-care (01) ==
PROVIDERS: Emergency Provider Emergency Medicine; PCP Internal Medicine
DX: R07.9 Chest pain, unspecified (principal); J44.9 Chronic obstructive pulmonary disease, unspecified; I10 Essential (primary) hypertension; E11.9 Type 2 diabetes mellitus without complications
CPT/HCPCS: 36415; 71046; 80053; 83880; 84484; 85025; 93005; 94640; 99284; A9270

== ENCOUNTER 2025-06-18 10:23 | Emergency (ER) | payer MEDICARE, BC, MEDICAID, SELFPAY ==
--- OUTSIDE RECORDS SUMMARY | 2025-06-18 10:25 | XMS_ITS | Encounter Summary ---
Author Organization [facility] Address [address] [place] [address] Care Team Providers Care Knit Goods Washer Name Role Phone Sacha Willett MD Primary Care Provider [phone] Encounter Details Date Type Department Care Team (Latest Contact Info) Description 05/17/2025 Results Follow-Up [facility] Mult[facility]pecialty Care - [place] [address] [address] [place] [address] Sacha Willett MD [address] [place] [address] [address] [place] [address] CBC W/DIFF AUTOMATED, COMPREHENSIVE METABOLIC PANEL, LIPID PANEL, Additional followed-up results: 2 Social History Tobacco Use Types Packs/Day Years Used Date Smoking Tobacco: Former Cigarettes 1 30 0 02/18/1976 - 02/17/2006 Smokeless Tobacco: Never Comments:Counseled by Dr. Elva chung. Alcohol Use Standard Drinks/Week Comments Never 0 [...] Orientation Straight 01/04/2025 11 :22 AM CDT documented as of this encounter Plan of Treatment Upcoming Encounters Date Type Department Care Team (Late st Contact Info) Description 06/22/2025 7:20 AM CDT [facility] [address] [place] [address] Sacha Willett MD [address] [place] [phone] 08/23/2025 9:40 AM SHOWCASE TRIMMER Office Visit [address] [address] Sacha Willett MD [address] [place] [id number] documented as of this encounter Visit Diagnoses Not on filedocumented in this encounter Additional Health Concerns Assessment Noted Time PHQ-9 Depression Total Score: 5 12/05/19 24 11:42 AM SHOWCASE TRIMMER documented as of this encounter Care Teams Knit Goods Washer Relationship Specialty Start Date End Date Sacha Willett MD [address] [place] [phone] PCP - General INTERNAL MEDICINE 03/10/23 documented as of this encounter
--- OUTSIDE RECORDS SUMMARY | 2025-06-18 10:25 | XMS_ITS | Clinical Summary ---
Author Organization [facility] Address [address] [place] [address] Care Team Providers Care Jewelry Sales Associate Name Role Phone Sacha Willett MD Primary Care Provider [phone] Allergies No known active allergies Medications CPAP DEVICE, DME,Indications: Obstructive sleep apnea Apply 1 device at night and with naps as needed Autopap 4-20cm h20 1 Device 1 07/16/20 24 Active Additional Information Patient not taking.Reported on 05/17/2025 nystatin (MYCOSTATIN) ointment Apply topically 2 (two) times daily. 07/05/20 24 Active DULoxetine (CYMBALTA) 60 MG capsuleIndicatio ns:Depression Take 1 capsule (60 mg total) by mouth nightly at bedtime. Indications: Depression 90 capsule 1 05/17/20 25 Active carvedilol (COREG) 25 MG tabletIndication s:Primary hypertension TAKE 1 TABLET(25 MG) BY MOUTH TWICE DAILY WITH MEALS 180 tablet 1 05/17/20 25 Active traMADol (ULTRAM) 50 MG tabletIndication s:Chronic Pain Take 1 tablet (50 mg total) by mouth daily as needed for Pain. Indications: Chronic Pain 90 tablet 05/17/20 25 Active vitamin D2, ergocalciferol, (DRISDOL) 1.25 mg capsuleIndicatio ns:Osteoarthriti s Take 1 capsule (50,000 Units total) by mouth every 7 days. Indications: Joint Damage causing Pain and Loss of Function 12 capsule 3 05/17/20 25 Active semaglutide (OZEMPIC) 2 MG/3ML injection (PEN)Indications :Diabetes Mellitus Inject 0.5 mg into the skin every 7 days. Indications: Diabetes 9 mL 05/17/20 25 Active pantoprazole EC (PROTONIX) 40 MG tabletIndication s:Gastroesophage al Reflux Disease Take 1 tablet (40 mg total) by mouth 2 (two) times daily. Indications: Gastroesophageal Reflux Disease 180 tablet 3 05/17/20 25 Active losartan-hydroCH LOROthiazide (HYZAAR) 50-12.5 MG tabletIndication s:Hypertension Take 1 tablet by mouth daily. Indications: High Blood Pressure Take one tablet daily along with losartan 25 mg daily. 90 tablet 1 05/17/20 25 Active losartan (COZAAR) 25 MG tabletIndication s:Hypertension associated with type 2 diabetes mellitus ([facility]) Take one tablet of losartan 25 mg daily along with losartan-hydrochlor thiazide 50-12.5 mg 90 tablet 1 05/17/20 25 Active atorvastatin (LIPITOR) 40 MG tabletIndication s:Hyperlipidemia Take 1 tablet (40 mg total) by mouth nightly at bedtime. Indications: High Amount of Fats in the Blood 90 tablet 1 05/17/20 25 Active Fluticasone-Umec lidin-Vilant (TRELEGY ELLIPTA) 200-62.5-25 MCG/ACT AEROSOL POWDER, BREATH ACTIVATEDIndicat ions:Centrilobul ar emphysema ([facility]) Inhale 1 puff into the lungs daily. 60 each 11 05/17/20 25 Active albuterol sulfate HFA 108 (90 Base) MCG/ACT inhalerIndicatio ns:Shortness of breath,Wheezing Indications: Shortness of breath, Wheezing IN 1 TO 2 PUFFS BY MOUTH EVERY 4 HOURS NEEDED FOR DIFFICULTY BREATHING 18 g 5 05/17/20 25 Active furosemide (LASIX) 20 MG tabletIndication s:Primary hypertension,Lym phedema Take 1 tablet (20 mg total) by mouth daily. 90 tablet 1 05/17/20 25 Active metFORMIN (GLUCOPHAGE) 500 MG tabletIndication s:Diabetes Mellitus Take 2 tablets (1,000 mg total) by mouth 2 (two) times daily. Indications: Diabetes 180 tablet 1 05/17/20 25 Active Active Problems Problem Noted Date Diagnosed Date Chronic obstructive pulmonar y disease, unspecified COPD type ([facility]) 07/15/2024 Acute pain of right shoulder 07/15/2024 Acute pain of left shoulder 07/15/2024 BPPV (benign paroxysmal positional vertigo), rig ht 04/02/2024 Obstructive sleep apnea 04/01/2024 Type 2 diabetes mellitus wit h other specified complication, without long-term current use of insulin ([facility]) 04/01/2024 Mild reactive airways diseas e, unspecified whether persistent ([facility]) 04/01/2024 Primary osteoarthritis of knee, unspecified late rality 04/01/2024 Hypertension associated with type 2 diabetes mellitus ([facility]) 04/01/2024 Morbid (severe) obesity due to excess calories 0 04/01/2024 Body mass index (BMI) 40.0-44.9, adult Encounters Date Type Department Care Team Description 05/24/2025 7:10 AM CDT Allied Health/Nurse Visit [place] [address] [place] [address] Sacha Willett MD Allied Health Visit (B/P check and urine ) 05/24/2025 Travel 05/18/2025 Telephone [place] [address] [place] [address] Sacha Willett MD Medication Reconciliation 05/17/2025 10:00 AM CDT Office Visit [place] [address] [place] [address] Sacha Willett MD Follow Up (Lymphedema, needs refills on several medications. Doesn't have Cpap device/); Diabetes; Hypertension; Hyperlipidemia; Anxiety; Depression; Vertigo- Recurrent; GERD; Low Back Pain (chronic); Vitamin D Deficiency 05/17/2025 Telephone [place] [address] [address] [address] [address] [place] [address] Sacha Willett MD Lab Results 05/17/2025 Results Follow-Up [facility] [address] [place] [address] Sacha Willett MD CBC W/DIFF AUTOMATED, COMPREHENSIVE METABOLIC PANEL, LIPID PANEL, Additional followed-up results: 2 05/17/2025 Travel 05/02/2025 Scan [facility] Scanned, [facility] (SCAN) from Last 3 Months Immunizations Immunization Administration [...] Sign Reading Time Taken Comments Blood Pressure 132/78 05/24/2025 7:28 AM CDT Pulse 83 05/17/2025 10:01 AM CDT Temperature 35.6 C (96.1 F) 05/17/2025 10:01 AM CDT Respiratory Rate 18 05/17/2025 10:01 AM CDT Oxygen Saturation 100% 05/17/2025 10:01 AM CDT Inhaled Oxygen Concentration - - Weight 99.2 kg (218 lb 9.6 oz) 05/17/2025 10:01 AM CDT Height 154.9 cm (5' 1) 05/17/2025 10:01 AM CDT Body Mass Index 41.3 05/17/2025 10:01 AM CDT Plan of Treatment Upcoming Encounters Date Type Department Care Team (Late st Contact Info) Description 06/22/2025 7:20 AM CDT Office Visit [facility] Medical [facility] [address] [address] Sacha Willett MD [address] [place] [address] 08/23/2025 9:40 AM HAZMAT TECHNICIAN [facility] - [address] [address] Sacha Willett MD [address] [place] [address] Health Maintenance Due Date Last Done Comments Diabetes: Retinopathy Eye Exam 1966 DTaP, Tdap and Td Vaccines (1 - Tdap) 1967 Zoster Vaccines (1 of 2) 1998 Annual Medicare Wellness Visit 2013 Dexa Scan (General) 2013 RSV Immunization or 60+ Years (1 - 1-dose 75+ series) 2023 COVID-19 Vaccine (4 - season) 2024 12/08/2021, 01/15/2021, 12/25/2020 Pneumococcal Vaccine: 50+ Years (2 of 2 - PCV) 12/05/2024 12/05/2023 Kidney Health Evaluation 06/23/2025 06/23/2024 Hemoglobin A1C 11/17/2025 05/17/2025, 12/01/2024, 06/23/2024, Additional history exists Lipid Panel 05/17/2026 05/17/2025, 090 01/2024, 07/31/2023 Colorectal Cancer Screening FIT-DNA (3 Years) Discontinued 12/17/2023, 12/17/2023 Hepatitis C Completed 06/23/2024, 04/01/2024 PHQ-2 (Physician [place]) Completed 12/28/2024 Meningococcal B Vaccine Aged Out No l onger eligible based on patient's age to complete this topic Meningococcal Vaccine Aged Out No mriiam ventura eligible based on patient's age to complete this topic RSV Immunizations Under 20 Months Aged Out No longer eligible based on patient's age to complete this topic Procedures Procedure Name Priority Date/Time Associated Diagnosis Comments TSH W/REFLEX Routine 05/17/2025 10:56 AM CDT Drug therapy LIPID PANEL Routine 05/17/2025 10:56 AM CDT Drug therapy COMPREHENSIVE METABOLIC PANEL Routine 05/17/2025 10:56 AM CDT Drug therapy CBC W/DIFF AUTOMATED Routine 05/17/2025 10:56 AM CDT Drug therapy COLLECT.CAPILLARY (FNGR,HEEL,EAR) Routine 05/17/2025 10:49 AM CDT Drug therapy COLLECTION VENOUS BLOOD VENIPUNCTURE Routine 05/17/2025 10:49 AM CDT Drug therapy HEMOGLOBIN, GLYCOSYLATED Routine 05/17/2025 Drug therapy OUTSIDE LAB (SCAN ORDER) 05/02/2025 HEPATITIS C ANTIBODY Routine 06/23/2024 2:46 PM CDT General medical exam Drug therapy COLOGUARD (EXACT SCIENCE) Routine 12/17/2023 2:00 PM HAZMAT TECHNICIAN Screen for colon cancer from Last 3 Months or Most Recently Relevant to Health Maintenance Results * TSH W/REFLEX (05/17/2025 10:56 AM CDT) TSH 1.368 0.358 - 3.740 uIU/ML 05/17/2025 4:19 PM CDT [facility] 05/17/2025 10:5 6 AM CDT Sacha Willett MD LABORATORY Final Result [facility] [address] [place] [address], * (ABNORMAL) COMPREHENSIVE METABOLIC PANEL (05/17/2025 10:56 AM CDT) SODIUM S/P/B 141 136 - 145 MMOL/L 05/17/2025 4:19 PM CDT [facility] POTASSIUM S/P/B 4.3 3.5 - 5.1 MMOL/L 05/17/2025 4:19 PM CDT [facility] CHLORIDE S/P/B 104 98 - 107 MMOL/L 05/17/2025 4:19 PM CDT [facility] CO2 33.4(H) 21 - 32 MMOL/L 05/17/2025 4:19 PM CDT [facility] Comment:RESULTS CONFIRMED-TE ST REPEATED GLUCOSE 123(H) 70 - 99 MG/DL 05/17/2025 4:19 PM CDT [facility] BUN 10 7 - 18 MG/DL 05/17/2025 4:19 PM CDT [facility] CREATININE S/P/B 0.95 0.55 - 1.02 MG/DL 05/17/2025 4:19 PM CDT [facility] CALCIUM S/P/B 9.5 8.4 - 10.5 MG/DL 05/17/2025 4:19 PM CDT [facility] BILIRUBIN TOTAL S/P/B 0.6 0.2 - 1.0 MG/DL 05/17/2025 4:19 PM CDT [facility] ALKALINE PHOSPHATASE S/P/B 71 55 - 142 U/L 05/17/2025 4:19 PM T [facility] AST 17 15 - 37 U/L 05/17/2025 4:19 PM T [facility] ALT 15 14 - 59 U/L 05/17/2025 4:19 PM T [facility] TOTAL PROTEIN S/P/B 7.5 6.4 - 8.2 G/DL 05/17/2025 4:19 PM [facility] ALBUMIN S/P/B 3.4 3.4 - 5.0 G/DL 05/17/2025 4:19 PM [facility] ANION GAP 3.6(L) 5 - 15 MMOL/L 05/17/2025 4:19 PM [facility] Comment:REFERENCE RANGE NOT ESTABLISHED OSMOLALITY (CALC) 292 MOSM/KG 025 4:19 PM T [facility] Comment:REFERENCE RANGE NOT ESTABLISHED GFR ESTIMATE 62(L) >90 ML/MIN/1. 73 M2 05/17/2025 4:19 PM [facility] GFR NOTES GFR REFERENCE S: 05/17/2025 4:19 PM T [facility] Comment: THE ESTIMATED GFR IS CALCULATED USING THE 2020 CKD-EPI EQUATION. THE FOLLOWING CATEGORIES FOR GRADING RENAL FUNCTION ARE RECOMMENDED BY THE INTERNATIONAL SOCIETY OF NEPHROLOGY (KDIGO 2012 CLINICAL PRACTICE GUIDELINE). G1,NORMAL OR HIGH: >89 ml/min/1.73 m2 G2,MILDLY DECREASED: 60-89 ml/min/1.73 m2 G3A,MILDLY TO MODERATELY DECREASED: 45-59 ml/min/1.73 m2 G3B,MODERATELY TO SEVERELY DECREASED: 30-44 ml/min/1.73 m2 G4,SEVERELY DECREASED: 15-29 ml/min/1.73 m2 G5,KIDNEY FAILURE: <15 ml/min/1.73 m2 05/17/2025 10:5 6 AM CDT us Sacha Willett MD LABORATORY Final Result [facility] [address] [place] [address], [place] [phone] * LIPID PANEL (05/17/2025 10:56 AM CDT) CHOLESTEROL 155 <200 MG/DL 05/17/2025 4:19 PM CDT [facility] TRIGLYCERIDES 64 <150 MG/DL 05/17/2025 4:19 PM CDT [facility] HDL 70 >40 MG/DL 05/17/2025 4:19 PM CDT [facility] LDL-C 72 <100 MG/DL 05/17/2025 4:19 PM CDT [facility] VLDL CALCULATION 13 5 - 28 MG/DL 05/17/2025 4:19 PM CDT [facility] CHOL/HDL RATIO 2.2 0.0 - 4.0 05/17/2025 4:19 PM CDT [facility] LDL/HDL 1.0 0.41 - 2.13 05/17/2025 4:19 PM CDT [facility] NON HDL CHOLESTEROL 85 <140 MG/DL 05/17/2025 4:19 PM CDT [facility] 05/17/2025 10:5 6 AM CDT us Sacha Willett MD LABORATORY Final Result [facility] [address] [place] [address], [place] [phone] * (ABNORMAL) CBC W/DIFF AUTOMATED (05/17/2025 10:56 AM CDT) WBC 4.85 4.00 - 10.80 x10'3/uL 05/17/2025 4:03 PM CDT [facility] RBC 4.22 4.10 - 5.40 x10'6/uL 05/17/2025 4:03 PM CDT [facility] HGB 13.5 12.0 - 16.0 G/DL 05/17/2025 4:03 PM CDT [facility] HCT 42.5 36.0 - 47.0 % 05/17/2025 4:03 PM CDT [facility] MCV 100.7(H) 78.0 - 100.0 FL 05/17/2025 4:03 PM T [facility] MCH 32.0(H) 27.0 - 31.0 PG 05/17/2025 4:03 PM T [facility] MCHC 31.8(L) 33.0 - 36.0 G/DL 05/17/2025 4:03 PM T [facility] RDW 12.6 11.5 - 14.5 % 05/17/2025 4:03 PM CDT [facility] PLT 275 150 - 350 x10'3/uL 05/17/2025 4:03 PM CDT [facility] MPV 9.7 7.4 - 10.4 FL 05/17/2025 4:03 PM T [facility] DIFFERENTIAL TYPE AUTOMATED DIFFERENTIAL 05/17/2025 4:03 PM T [facility] NEUTROPHILS % 48.1 % 05/17/2025 4:03 PM CDT [facility] LYMPHOCYTES % 37.7 % 05/17/2025 4:03 PM CDT [facility] MONOCYTES % 7.2 % 05/17/2025 4:03 PM CDT [facility] EOSINOPHILS % 6.2 % 05/17/2025 4:03 PM CDT [facility] BASOPHILS % 0.6 % 05/17/2025 4:03 PM CDT [facility] IMMATURE GRANS % 0.2 % 05/17/2025 4:03 PM CDT [facility] ABS. NEUTROPHILS 2.33 1.60 - 8.30 x10'3/uL 05/17/2025 4:03 PM CDT [facility] ABS. LYMPHOCYTES 1.83 0.80 - 4.70 x10'3/uL 05/17/2025 4:03 PM CDT [facility] ABS. MONOCYTES 0.35 0.00 - 1.50 x10'3/uL 05/17/2025 4:03 PM CDT [facility] ABS. EOSINOPHILS 0.30 0.00 - 0.40 x10'3/uL 05/17/2025 4:03 PM CDT [facility] ABS. BASOPHILS 0.03 0.00 - 0.20 x10'3/uL 05/17/2025 4:03 PM CDT [facility] ABS. IMMATURE GRANULOCYTES 0.01 0.00 - 0.03 x10'3/uL 05/17/2025 4:03 PM CDT [facility] 05/17/2025 10:5 6 AM CDT Sacha Willett MD LABORATORY Final Result [facility] [address] [place] [address], [place] [phone] * HEMOGLOBIN, GLYCOSYLATED (05/17/2025) HGB A1C 5.9 % -[address], [place] 05/17/2025 us Sacha Willett MD LABORATORY Final Result [id number], [facility] [address] [facility] [address] [place] [address], * OUTSIDE LAB (SCAN ORDER) (05/02/2025) 05/02/2025 [facility] Scanned SCANNING Final Resu lt * HEPATITIS C ANTIBODY (06/23/2024 2:46 PM CDT) [facility] HEPATITIS C AB NON-REACTI VE NON-REACT [place] 06/23/2024 9:41 PM CDT [facility] Comment: ANTIBODIES TO HCV NOT DETECTED. DOES NOT EXCLUDE THE POSSIBILITY OF EXPOSURE TO HCV. 06/23/2024 2:46 PM CDT Sacha Willett MD LABORATORY Final Result [facility] [address] [place] [address], [place] [phone] [id number] * COLOGUARD (EXACT SCIENCE) (12/17/2023 2:00 PM HAZMAT TECHNICIAN) [facility] COLOGUARD RESULT Negative Negative [employer] (CLIA #:[id number]) Comment: NEGATIVE TEST RESULT. A negative Cologuard [...] (Gold Lam al, N Engl J Med 2014;370(14):5300-1750) The normal value (reference range) for this assay is negative. COLOGUARD RE-SCREENING RECOMMENDATION: Periodic colorectal cancer screening is an important part of preventive healthcare for asymptomatic individuals at average risk for colorectal cancer. Following a negative Cologuard result, the [place] [employer] and U.S. Multi-Society Task Force screening guidelines recommend a Cologuard re-screening interval of 3 years. References: [place] [employer] Guideline for Colorectal Cancer Screening: https://www.cancer.org/cancer/wyzqy-omgbmr-cfopgf/nkmmgrpgg-mnbkarefn-sjchyap/ac s-rec ommendations.html.; Chidi DK, Milagros CR, Trace MimsK, Colorectal Cancer Screening: Recommendations for Physicians and Patients from the U.S. Multi-Society Task Force on Colorectal Cancer Screening , Am J Gastroenterology 2017; 112:8557-6511. TEST DESCRIPTION: Composite algorithmic analysis of stool [...] screened with both Cologuard and colonoscopy. (Gold Jason et al, N Engl J Med 2014;370(14):7869-3664.) Cologuard may produce a false negative or false positive result (no colorectal cancer or precancerous polyp present at colonoscopy follow up). A negative Cologuard test result does not guarantee the absence of CRC or advanced adenoma (pre-cancer). The current Cologuard screening interval is every 3 years. ([place] [employer] and U.S. Multi-Society Task Force). Cologuard performance data in a 10,000 patient pivotal study using colonoscopy as the reference method can be accessed at the following location: www.[employer]/results. Additional description of the Cologuard test process, warnings and precautions can be found at www.cologuard.com. STOOL STOOL SPECIMEN / Unknown 12/17/2023 2:00 PM HAZMAT TECHNICIAN 12/18/2023 10:00 AM HAZMAT TECHNICIAN us Sacha Willett MD BODY FLUIDS AND STOOLS ORDERABLE S Final Result [facility] ([address]) [address] [place] [address], [employer] (CLIA #:[id number]) [address] [place] [address] from Last 3 Months or Most Recently Relevant to Health Maintenance Insurance [facility] MEDICARE Advance Directives * Full Code (Latest Code Status on File) Date Activated Date Inactivated Comments 07/28/2023 11:25 AM 11/25/2023 6:38 PM Care Teams Jewelry Sales Associate Relationship Specialty Start Date End Date Sacha Willett MD [address] [address] PCP - General INTERNAL MEDICINE 03/10/23
--- OUTSIDE RECORDS SUMMARY | 2025-06-18 10:25 | XMS_ITS | Clinical Summary ---
Author Organization [facility] Address [address] [place] [address] Care Team Providers Care Pug Machine Operator Name Role Phone No, Physician Primary Care Provider [phone] Allergies No known active allergies Medications traMADoL [...] 1998 Well Visit 65+ 2013 Covid-19 Vaccine ( season) 2024 12/08/2021, 01/15/2021, 12/25/2020 Influenza Vaccine (#1) 2025 06/27/2022 Insurance MEDICARE [facility] Care Teams Pug Machine Operator Relationship Specialty Start Date End Date No, Physician PCP - General 02/16/23
[2025-06-18 10:33] VITALS: BP 196/95; PULSE 82; RESP 20; TEMP 36.5; O2SAT 100
[2025-06-18 10:37] VITALS: O2SAT 100
--- NOTE | 2025-06-18 10:40 | ED.GENADULT ---
HPI - General Adult General Chief complaint: Unspecified Stated complaint: whole body hurts Time Seen by Provider: 06/18/25 10:26 History of Present Illness HPI narrative: 74-year-old female presents emergency department for evaluation for lower leg aching. Patient states she does often have full body aches and does take Tylenol for this. Patient states her lower extremities were bothering her more this morning. Patient denies any falls or injury. Patient does bilateral lower extremity lymphedema with no pitting edema. Patient denies any chest pain shortness of breath. Patient denies any falls or injuries. Patient is well-appearing at time of evaluation. Related Data Home Medications ?Medication ?Instructions ?Recorded ?Confirmed ?Last Taken ?Type acetaminophen 500 mg capsule 500 mg PO Q6H PRN Pain, Mild 10/11/21 05/02/25 10/10/21 History albuterol sulfate 90 mcg/actuation 2 puff inhalation Q4H PRN sOB, 10/11/21 06/12/23 06/12/23 History aerosol inhaler wheezing aspirin 81 mg chewable tablet 81 mg PO DAILY 10/11/21 06/12/23 06/12/23 History atorvastatin 40 mg tablet 40 mg PO DAILY 10/11/21 06/12/23 06/12/23 History carvedilol 25 mg tablet 25 mg PO BID 10/11/21 06/12/23 06/12/23 History duloxetine 30 mg capsule,delayed 30 mg PO DAILY 10/11/21 06/12/23 06/12/23 History release furosemide 20 mg tablet 20 mg PO DAILY 10/11/21 06/12/23 06/12/23 History metformin 500 mg tablet 500 mg PO BID 10/11/21 06/12/23 06/12/23 History guaifenesin 100 mg/5 mL oral liquid 200 mg PO Q4H PRN Cough 06/12/23 06/12/23 06/12/23 History Allergies Allergy/AdvReac Type Severity Reaction Status Date / Time No Known Allergies Allergy Verified 06/18/25 10:36 Review of Systems Review of Systems: All systems reviewed & are unremarkable except as noted in HPI and below PMFSH Past Medical History Medical History COPD (chronic obstructive pulmonary disease) Hypertension T2DM (type 2 diabetes mellitus) Family History Family History Other Unknown family medical history Social History Social History Smoking status: Former smoker Alcohol intake: never Substance use: never Lack of Transportation: No Lack of Food: Never True Current Housing: I Have Housing Concerned About Future Housing: No Difficulty Paying Gas/Electric Bills: No Difficulty Paying for Meds: No Currently Unemployed: No Education: Decline to Answer Difficulty w/ Childcare or Family Care: No Spiritual care concerns: No Exam Narrative: APPEARANCE: Well appearing, no pain, no distress, well-nourished. HEAD: normocephalic, atraumatic. EYES: PERRLA/EOMI, conjunctivae clear. NOSE: Normal no drainage EARS:TMS clear with good light reflex. THROAT: Pharynx clear, no exudate. NECK: Supple. No adenopathy, no masses. RESPIRATORY: Airway patent, respirations nonlabored. Clear to auscultation bilaterally, no rales, rhonchi, wheezing. CARDIOVASCULAR: Regular rate and rhythm without murmurs rubs or gallops. ABDOMINAL: Soft, nontender, nondistended, normal bowel sounds MUSCULOSKELETAL: Bilateral calf tenderness to palpation, no pitting edema NEURO: Alert. Cranial nerves II through XII intact. Good gait. Good coordination SKIN: Warm, dry. Normal Color Course Vital Signs Vital signs: Vital Signs Temperature 97.7 F 06/18/25 10:33 Pulse Rate 82 06/18/25 10:33 Respiratory Rate 20 06/18/25 10:33 Blood Pressure 196/95 H 06/18/25 10:33 Pulse Oximetry 100 06/18/25 10:33 Oxygen Delivery Room Air 06/18/25 10:33 Temperature 97.7 F 06/18/25 10:33 Pulse Rate 82 06/18/25 10:33 Respiratory Rate 20 06/18/25 10:33 Blood Pressure 196/95 H 06/18/25 10:33 Pulse Oximetry 100 06/18/25 10:37 Oxygen Delivery Room Air 06/18/25 10:33 Medical Decision Making MDM Narrative Medical decision making narrative: 74-year-old female presenting to the emergency department for lower extremity pain. Patient is currently afebrile with no leukocytosis and hemoglobin of 13.0. Patient has no acute abnormalities on her CMP, Mag within normal limits and CPK was also not elevated. Patient was treated with p.o. Tylenol and on re-evaluation patient states her symptoms have resolved. On physical examination patient has no concerning signs of cellulitis, DVT. Patient was agreeable with plan for discharge and close follow-up. All questions concerns were addressed. Differential Diagnosis Differential Diagnosis: Rhabdomyolysis, DVT, cellulitis, chronic pain Vital Signs Vital Signs: Vital Signs Temperature 97.7 F 06/18/25 10:33 Pulse Rate 82 06/18/25 10:33 Respiratory Rate 20 06/18/25 10:33 Blood Pressure 196/95 H 06/18/25 10:33 Pulse Oximetry 100 06/18/25 10:33 Oxygen Delivery Room Air 06/18/25 10:33 Temperature 97.7 F 06/18/25 10:33 Pulse Rate 82 06/18/25 10:33 Respiratory Rate 20 06/18/25 10:33 Blood Pressure 196/95 H 06/18/25 10:33 Pulse Oximetry 100 06/18/25 10:37 Oxygen Delivery Room Air 06/18/25 10:33 Lab Data Lab results reviewed: Yes I reviewed the patient's lab results. 06/18/25 10:44 06/18/25 10:44 Labs: Lab Results 06/18/25 Range/Units 10:44 WBC 4.9 (4.5-10.0) K/mm3 RBC 4.12 L (4.2-5.4) M/mm3 Hgb 13.0 (12.0-15.0) g/dL Hct 40.0 (37.0-47.0) % MCV 97.1 (80-100) fl MCH 31.6 (26-34) pg MCHC 32.5 (32-36) g/dl RDW 12.7 (11.5-14.5) % Plt Count 219 (150-375) k/mm3 MPV 9.1 (7.4-10.4) fl Immature Gran % (Auto) 0.2 (0-0.5) % Neut % (Auto) 52.2 (45.5-73.1) % Lymph % (Auto) 34.7 (18.3-44.2) % Clay % (Auto) 8.0 (2.6-8.5) % Eos % (Auto) 4.1 (0-4.4) % Baso % (Auto) 0.8 (0.2-1.2) % Lymph # (Auto) 1.69 (0.9-3.2) K/mm3 Clay # (Auto) 0.4 (0.1-0.6) K/mm3 Eos # (Auto) 0.2 (0-0.3) K/mm3 Baso # (Auto) 0.0 (0.0-0.1) K/mm3 Abs Immat Gran (auto) 0.01 (0.00-0.031) K/mm3 Absolute Neuts (auto) 2.5 (1.3-6.7) K/mm3 Absolute Nucleated RBC 0.000 (0.0-0.012) K/mm3 Nucleated RBC % 0.0 (0.0-0.2) % Sodium 136 L (137-145) mmol/L Potassium 4.0 (3.4-5.0) mmol/L Chloride 104 (98-107) mmol/L Carbon Dioxide 27 (22-30) mmol/L Anion Gap 5 (4-12) mmol/L BUN 12 (7-17) mg/dL Creatinine 0.75 (0.7-1.0) mg/dL Estim Creat Clear Calc 60 ml/min Estimated GFR > 60 (59 - ) Glucose 131 H (65-110) mg/dL Calcium 9.1 (8.4-10.2) mg/dL Magnesium 1.8 (1.6-2.3) mg/dL Total Bilirubin 0.7 (0.2-1.3) mg/dL AST 22 (14-36) U/L ALT 14 (6-35) U/L Alkaline Phosphatase 67 (38-126) U/L Total Creatine Kinase 63 (30-135) U/L Total Protein 7.4 (6.3-8.2) g/dL Albumin 3.6 (3.5-5.1) g/dL Discharge Plan Discharge Clinical Impression: Acute leg pain Patient Disposition: Home Condition: Stable Instructions: Antibiotic Form Additional Instructions: Tylenol for pain control. Have close follow-up with your primary care physician. If you have any worsening symptoms then please call or return to the emergency department. Patient Language: Greenlandic Prescriptions: No Action atorvastatin 40 mg Tablet 40 mg PO DAILY metformin 500 mg Tablet 500 mg PO BID carvedilol 25 mg Tablet 25 mg PO BID aspirin 81 mg Tablet,Chewable 81 mg PO DAILY acetaminophen 500 mg Capsule 500 mg PO Q6H PRN (Reason: Pain, Mild) duloxetine 30 mg Capsule,Delayed Release(Dr/Ec) 30 mg PO DAILY furosemide 20 mg tablet 20 mg PO DAILY albuterol sulfate 90 mcg/actuation HFA aerosol inhaler 2 puff INHALATION Q4H PRN (Reason: sOB, wheezing) guaifenesin 100 mg/5 mL Liquid 200 mg PO Q4H PRN (Reason: Cough) albuterol sulfate 90 mcg/actuation HFA aerosol inhaler 2 puff inhalation Q4H PRN (Reason: shortness of breath or wheezing) Qty: 6.7 0RF prednisone 20 mg tablet 40 mg PO DAILY 5 Days Qty: 10 0RF albuterol sulfate 90 mcg/actuation HFA aerosol inhaler 2 puff inhalation QID PRN (Reason: shortness of breath or wheezing) Qty: 8.5 0RF nystatin 100,000 unit/gram ointment 1 applic topical BID Qty: 15 0RF zinc oxide 20 % paste 1 ea topical TID Qty: 57 0RF prednisone 20 mg tablet 40 mg PO DAILY 5 Days Qty: 10 0RF doxycycline hyclate 100 mg capsule 100 mg PO BID 5 Days Qty: 10 0RF albuterol sulfate 90 mcg/actuation HFA aerosol inhaler 2 puff inhalation QID PRN (Reason: shortness of breath or wheezing) Qty: 8.5 0RF Follow-up/Referrals: Tamie,MD Sacha [Primary Care Provider, Unknown]
[2025-06-18] MEDS: ACETAMINOPHEN 500 MG TABLET 1000 MG PO (10:49)
[2025-06-18 10:52] LABS: Hematocrit 40.0 % (37.0-47.0); Hemoglobin 13.0 g/dL (12.0-15.0); Immature Granulocyte Percent A 0.2 % (0-0.5); Lymphocytes Absolute Auto 1.69 K/mm3 (0.9-3.2); Mean Corpuscular HGB Conc 32.5 g/dl (32-36); Mean Corpuscular Hemoglobin 31.6 pg (26-34); Mean Corpuscular Volume 97.1 fl (80-100); Nucleated Red Blood Cells Absolute Auto 0.000 K/mm3 (0.0-0.012); Nucleated Red Blood Cells Perc 0.0 % (0.0-0.2); Platelet Count Result 219 k/mm3 (150-375); Red Blood Count 4.12 M/mm3 (4.2-5.4); White Blood Count 4.9 K/mm3 (4.5-10.0)
[2025-06-18 11:11] LABS: Alanine Aminotransferase 14 U/L (6-35); Albumin Level 3.6 g/dL (3.5-5.1); Alkaline Phosphatase 67 U/L (38-126); Anion Gap 5 mmol/L (4-12); Aspartate Amino Transferase 22 U/L (14-36); Bilirubin,Total 0.7 mg/dL (0.2-1.3); Blood Urea Nitrogen 12 mg/dL (7-17); Calcium 9.1 mg/dL (8.4-10.2); Carbon Dioxide 27 mmol/L (22-30); Chloride 104 mmol/L (98-107); Creatine Kinase 63 U/L (30-135); Estimated CRCL calculation 60 ml/min; Estimated Glomerular Filt Rate > 60; Glucose 131 mg/dL (65-110); Magnesium 1.8 mg/dL (1.6-2.3); Potassium 4.0 mmol/L (3.4-5.0); Sodium 136 mmol/L (137-145); Total Protein 7.4 g/dL (6.3-8.2)
== END 2025-06-18 12:05 | disposition home or self-care (01) ==
PROVIDERS: Emergency Provider Emergency Medicine; PCP Internal Medicine
DX: M79.662 Pain in left lower leg (principal); M79.661 Pain in right lower leg; I89.0 Lymphedema, not elsewhere classified; I10 Essential (primary) hypertension; E11.9 Type 2 diabetes mellitus without complications; J44.9 Chronic obstructive pulmonary disease, unspecified; Z87.891 Personal history of nicotine dependence; Z79.84 Long term (current) use of oral hypoglycemic drugs; Z79.899 Other long term (current) drug therapy
CPT/HCPCS: 36415; 80053; 82550; 83735; 85025; 99283; A9270

== ENCOUNTER 2025-07-13 09:19 | Emergency (ER) | payer MEDICARE, BC, MEDICAID, SELFPAY ==
[2025-07-13 09:26] VITALS: BP 180/99; PULSE 88; RESP 16; TEMP 36.4; O2SAT 100
--- OUTSIDE RECORDS SUMMARY | 2025-07-13 10:00 | XMS_ITS | Clinical Summary ---
Author Organization [facility] Address [address] [place] [address] Care Team Providers Care Rubber Chemist Name Role Phone No, Physician Primary Care Provider [phone] Allergies No known active allergies Medications traMADoL [...] Visit 65+ 2013 Covid-19 Vaccine ( season) 2025 12/08/2021, 01/15/2021, 12/25/2020 Influenza Vaccine (#1) 2025 06/27/2022 Insurance MEDICARE [facility], [facility]–1983 Care Teams Rubber Chemist Relationship Specialty Start Date End Date No, Physician PCP - General 02/16/23
[2025-07-13] MEDS: LORATADINE 10 MG TABLET PO (10:01)
--- NOTE | 2025-07-13 10:01 | ED.GENADULT ---
HPI - General Adult General Chief complaint: Unspecified Stated complaint: itching Time Seen by Provider: 07/13/25 09:32 History of Present Illness HPI narrative: Rafia Mitchell is a 74-year-old female who presents today with complaints of having itching all over her body mostly her arms or legs some to her trunk that started last night. She states that she feels like symptoms have improved some today. She does not know anything that she is allergic to or any known recent triggers she does not appreciate having a particular rash anywhere. Denies shortness of breath denies any new medications Related Data Home Medications ?Medication ?Instructions ?Recorded ?Confirmed ?Last Taken ?Type acetaminophen 500 mg capsule 500 mg PO Q6H PRN Pain, Mild 10/11/21 05/02/25 10/10/21 History albuterol sulfate 90 mcg/actuation 2 puff inhalation Q4H PRN sOB, 10/11/21 06/12/23 06/12/23 History aerosol inhaler wheezing aspirin 81 mg chewable tablet 81 mg PO DAILY 10/11/21 06/12/23 06/12/23 History atorvastatin 40 mg tablet 40 mg PO DAILY 10/11/21 06/12/23 06/12/23 History carvedilol 25 mg tablet 25 mg PO BID 10/11/21 06/12/23 06/12/23 History duloxetine 30 mg capsule,delayed 30 mg PO DAILY 10/11/21 06/12/23 06/12/23 History release furosemide 20 mg tablet 20 mg PO DAILY 10/11/21 06/12/23 06/12/23 History metformin 500 mg tablet 500 mg PO BID 10/11/21 06/12/23 06/12/23 History guaifenesin 100 mg/5 mL oral liquid 200 mg PO Q4H PRN Cough 06/12/23 06/12/23 06/12/23 History Allergies Allergy/AdvReac Type Severity Reaction Status Date / Time No Known Allergies Allergy Verified 07/13/25 09:39 Review of Systems Review of Systems: All systems reviewed & are unremarkable except as noted in HPI and below PMFSH Past Medical History Medical History COPD (chronic obstructive pulmonary disease) T2DM (type 2 diabetes mellitus) Hypertension Family History Family History Other Unknown family medical history Social History Social History Smoking status: Former smoker Alcohol intake: never Substance use: never Lack of Transportation: No Lack of Food: Never True Current Housing: I Have Housing Concerned About Future Housing: No Difficulty Paying Gas/Electric Bills: No Difficulty Paying for Meds: No Currently Unemployed: No Education: Decline to Answer Difficulty w/ Childcare or Family Care: No Spiritual care concerns: No Exam Narrative: GENERAL: Well-appearing, well-nourished, and in no acute distress. HEAD: Normocephalic, atraumatic. EYES: PERRLA and EOMI. ENT: Nares clear, no rhinorrhea or epistaxis. Mucous membranes moist. Oropharynx without tonsillar hypertrophy exudate or other lesions. NECK: Supple. No adenopathy or masses. No carotid bruits or JVD CHEST: Clear to auscultation. No respiratory distress. No wheezes rales or rhonchi HEART: Regular rate and rhythm. No murmur heard. Normal peripheral pulses. ABDOMEN: Soft, nontender, nondistended, normal active bowel sounds. EXTREMITIES: Normal range of motion. No edema. SKIN:mild flesh colored raised small papules to upper extremities with some mild superficial scratch kiser, and dryness to her extremities. NEURO: No focal deficits. Alert and oriented x3. PSYCH: Normal mood and affect. Course Vital Signs Vital signs: Vital Signs Temperature 36.4 C 07/13/25 09:26 Pulse Rate 88 07/13/25 09:26 Respiratory Rate 16 07/13/25 09:26 Blood Pressure 180/99 H 07/13/25 09:26 Pulse Oximetry 100 07/13/25 09:26 Oxygen Delivery Room Air 07/13/25 09:26 Temperature 36.4 C 07/13/25 09:26 Pulse Rate 88 07/13/25 09:26 Respiratory Rate 16 07/13/25 09:26 Blood Pressure 180/99 H 07/13/25 09:26 Pulse Oximetry 100 07/13/25 09:26 Oxygen Delivery Room Air 07/13/25 09:26 Medical Decision Making MDM Narrative Medical decision making narrative: mild flesh colored raised small papules to upper extremities with some mild superficial scratch kiser, and dryness to her extremities. hx and exam consistent with contact dermatitis Will start treatment with Prednisone and Claritin here D/C home with continued cetirizine, prednisone and triamcinolone cream close PCP follow up Strict return precautions provided Medical Records Medical records reviewed: Yes I reviewed the external patient's medical records. Vital Signs Vital Signs: Vital Signs Temperature 36.4 C 07/13/25 09:26 Pulse Rate 88 07/13/25 09:26 Respiratory Rate 16 07/13/25 09:26 Blood Pressure 180/99 H 07/13/25 09:26 Pulse Oximetry 100 07/13/25 09:26 Oxygen Delivery Room Air 07/13/25 09:26 Temperature 36.4 C 07/13/25 09:26 Pulse Rate 88 07/13/25 09:26 Respiratory Rate 16 07/13/25 09:26 Blood Pressure 180/99 H 07/13/25 09:26 Pulse Oximetry 100 07/13/25 09:26 Oxygen Delivery Room Air 07/13/25 09:26 Vitals reviewed by me - b/p is elevated and she has hx of this , denies symptoms with it and will continue her b/p medications at home Discharge Plan Discharge Clinical Impression: Contact dermatitis Qualifiers: Contact dermatitis type: unspecified Contact dermatitis trigger: unspecified trigger Qualified Code(s): L25.9 - Unspecified contact dermatitis, unspecified cause Patient Disposition: Home Condition: Stable Instructions: Antibiotic Form Additional Instructions: Continue the cetirizine once daily Continue the prednisone pack as ordered Start using the triamcinolone cream to area of itching, do not put on face or genitals as it can decrease pigmentation Follow up with your PCP in 1 week If you should develop any new or worsening symptoms, shortness of breath, difficulty breathing then return to the ER Patient Language: Libyan Prescriptions: New cetirizine 10 mg tablet 10 mg PO DAILY PRN (Reason: allergy symptoms) Qty: 30 0RF triamcinolone acetonide 0.1 % cream 1 applic topical BID Qty: 80 1RF Rx Instructions: apply to affected areas twice daily for 1-2 weeks- do not put on face or genitals prednisone 5 mg tablets,dose pack See Rx Instructions .ROUTE .COMPLEX Qty: 21 0RF Rx Instructions: orally per package directions No Action atorvastatin 40 mg Tablet 40 mg PO DAILY metformin 500 mg Tablet 500 mg PO BID carvedilol 25 mg Tablet 25 mg PO BID aspirin 81 mg Tablet,Chewable 81 mg PO DAILY acetaminophen 500 mg Capsule 500 mg PO Q6H PRN (Reason: Pain, Mild) duloxetine 30 mg Capsule,Delayed Release(Dr/Ec) 30 mg PO DAILY furosemide 20 mg tablet 20 mg PO DAILY albuterol sulfate 90 mcg/actuation HFA aerosol inhaler 2 puff INHALATION Q4H PRN (Reason: sOB, wheezing) guaifenesin 100 mg/5 mL Liquid 200 mg PO Q4H PRN (Reason: Cough) albuterol sulfate 90 mcg/actuation HFA aerosol inhaler 2 puff inhalation Q4H PRN (Reason: shortness of breath or wheezing) Qty: 6.7 0RF prednisone 20 mg tablet 40 mg PO DAILY 5 Days Qty: 10 0RF albuterol sulfate 90 mcg/actuation HFA aerosol inhaler 2 puff inhalation QID PRN (Reason: shortness of breath or wheezing) Qty: 8.5 0RF nystatin 100,000 unit/gram ointment 1 applic topical BID Qty: 15 0RF zinc oxide 20 % paste 1 ea topical TID Qty: 57 0RF prednisone 20 mg tablet 40 mg PO DAILY 5 Days Qty: 10 0RF doxycycline hyclate 100 mg capsule 100 mg PO BID 5 Days Qty: 10 0RF albuterol sulfate 90 mcg/actuation HFA aerosol inhaler 2 puff inhalation QID PRN (Reason: shortness of breath or wheezing) Qty: 8.5 0RF Follow-up/Referrals: Tamie,MD Sacha [Primary Care Provider, Unknown] Time of Disposition: 10:12
[2025-07-13 10:08] VITALS: PULSE 72; RESP 23; TEMP 36.6; O2SAT 100
--- OUTSIDE RECORDS SUMMARY | 2025-07-13 10:40 | XMS_ITS | Clinical Summary ---
Author Organization [facility] Address [address] [place] [address] Care Team Providers Care Quail Farmer Name Role Phone No, Physician Primary Care Provider Allergies No known active allergies Medications traMADoL [...] Influenza Vaccine (#1) 2025 06/27/2022 Insurance MEDICARE [facility] Care Teams Quail Farmer Relationship Specialty Start Date End Date No, Physician PCP - General 02/16/23
--- OUTSIDE RECORDS SUMMARY | 2025-07-13 10:40 | XMS_ITS | Clinical Summary ---
Author Organization [facility] Address [address] [place] [address] Care Team Providers Care Food Checker Name Role Phone Sacha Willett MD Primary Care Provider [phone] Allergies No known active allergies Medications CPAP DEVICE, DME,Indications: Obstructive sleep apnea Apply 1 device at night and with naps as needed Autopap 4-20cm h20 1 Device 1 07/16/20 24 Active Additional Information Patient not taking.Reported on 06/22/2025 nystatin (MYCOSTATIN) ointment Apply topically 2 (two) [...] s:Hypertension associated with type 2 diabetes mellitus ([facility]) Take one tablet of losartan 25 [...] AEROSOL POWDER, BREATH ACTIVATEDIndicat ions:Centrilobul ar emphysema ([facility]) Inhale 1 puff into the lungs daily. [...] obstructive pulmonar y disease, unspecified COPD type ([facility]) 07/15/2024 Acute pain of right shoulder 07/15/2024 Acute pain of left shoulder 07/15/2024 BPPV (benign paroxysmal positional vertigo), rig ht 04/02/2024 Obstructive sleep apnea 04/01/2024 Type 2 diabetes mellitus wit h other specified complication, without long-term current use of insulin ([facility]) 04/01/2024 Mild reactive airways diseas e, unspecified whether persistent ([facility]) 04/01/2024 Primary osteoarthritis of knee, unspecified late rality 04/01/2024 Hypertension associated with type 2 diabetes mellitus ([facility]) 04/01/2024 Morbid (severe) obesity due to excess calories 0 04/01/2024 Body mass index (BMI) 40.0-44.9, adult Encounters Date Type Department Care Team Description 06/22/2025 7:20 AM CDT Office Visit [address] [address] [place] [address] Sacha Willett MD Memory Loss; Hypertension; Itching 06/22/2025 Results Follow-Up [address] [place] [address] Sacha Willett MD FOLIC ACID SERUM, VITAMIN B-12 06/22/2025 Travel 06/18/2025 Scan [facility] Scanned, [facility] (SCAN) 05/24/2025 7:10 AM CDT Allied Health/Nurse [place] [address] [facility] [address] [place] [address] Sacha Willett MD Allied Health Visit (B/P check and urine ) 05/24/2025 Travel 05/18/2025 Telephone [address] [place] [address] Sacha Willett MD Medication Reconciliation 05/17/2025 10:00 AM CDT Office Visit [facility] [place] [address] [place] [address] Sacha Willett MD Follow Up (Lymphedema, needs refills on several medications. Doesn't have Cpap device/); Diabetes; Hypertension; Hyperlipidemia; Anxiety; Depression; Vertigo- Recurrent; GERD; Low Back Pain (chronic); Vitamin D Deficiency 05/17/[address] [place] [address] Sacha Willett MD Lab Results 05/17/2025 Results Follow-Up [address] [place] [address] Sacha Willett MD CBC W/DIFF AUTOMATED, COMPREHENSIVE METABOLIC PANEL, LIPID PANEL, Additional followed-up results: 2 05/17/2025 Travel 05/02/2025 Scan [employer] INFO SRVCS Scanned, [facility] [...] Sign Reading Time Taken Comments Blood Pressure 150/82 06/22/2025 8:16 AM CDT Pulse 77 06/22/2025 7:31 AM CDT Temperature 36.4 C (97.6 F) 06/22/2025 7:31 AM CDT Respiratory Rate 18 06/22/2025 7:31 AM CDT Oxygen Saturation 100% 06/22/2025 7:31 AM CDT Inhaled Oxygen Concentration - - Weight 97.7 kg (215 lb 6.4 oz) 06/22/2025 7:31 A M CDT Height 154.9 cm (5' 1) 06/22/2025 7:31 AM CDT Body Mass Index 40.7 06/22/2025 7:31 AM CDT Plan of Treatment Upcoming Encounters Date Type Department Care Team (Late st Contact Info) Description 07/13/2025 3:40 PM CDT [facility] - [address] [address] Sacha Willett MD [address] [place] [address] 08/23/2025 9:40 AM IMAGE ASSEMBLER Office Visit [facility] Multispecialty [facility] - [address] [place] [address] Sacha Willett MD [facility] [address] [address] 09/05/2025 8:40 AM IMAGE ASSEMBLER Office Visit [facility] Mult[facility]pecialty Care - [facility] [address] [facility], [address] [place] [phone] Sarai Jaimes MD [address] [place] [address] Health Maintenance Due Date Last Done Comments Kidney Health Evaluation 1950 Diabetes: Retinopathy Eye Exam 1966 DTaP, Tdap and Td Vaccines (1 - Tdap) 1967 Zoster Vaccines (1 of 2) 1998 Annual Medicare Wellness Visit 2013 Dexa Scan (General) 2013 RSV Immunization or 60+ Years (1 - 1-dose 75+ series) 2023 Pneumococcal Vaccine: 50+ Years (2 of 2 - PCV) 12/05/2024 12/05/2023 COVID-19 Vaccine ( season) 2025 12/08/2021, 01/15/2021, 12/25/2020 Hemoglobin A1C 11/17/2025 05/17/2025, 01/2024, 06/23/2024, Additional history exists Lipid Panel 05/17/2026 05/17/2025, 01/2024, 07/31/2023 Colorectal Cancer Screening FIT-DNA (3 Years) Discontinued 12/17/2023, 12/17/2023 Hepatitis C Completed 06/23/2024, 04/01/2024 PHQ-2 (Physician Otis) Completed 12/28/2024 Meningococcal B Vaccine Aged Out No l onger eligible based on patient's age to complete this topic Meningococcal Vaccine Aged Out No miriam ventura eligible based on patient's age to complete this topic RSV Immunizations Under 20 Months Aged Out No longer eligible based on patient's age to complete this topic Procedures Procedure Name Priority Date/Time Associated Diagnosis Comments VITAMIN B-12 Routine 06/22/2025 8:33 AM CDT Memory changes FOLIC ACID SERUM Routine 06/22/2025 8:33 AM CDT Memory changes OUTSIDE LAB (SCAN ORDER) 06/18/2025 OUTSIDE LAB (SCAN ORDER) 06/18/2025 TSH W/REFLEX Routine 05/17/2025 10:56 AM CDT [...] COLOGUARD (EXACT SCIENCE) Routine 12/17/2023 2:00 PM IMAGE ASSEMBLER Screen for colon cancer from Last 3 Months or Most Recently Relevant to Health Maintenance Results * VITAMIN B-12 (06/22/2025 8:33 AM CDT) VITAMIN B12 S/P/B 265 193 - 986 PG/ML 06/22/2025 4:41 PM CDT -[facility] 06/22/2025 8:33 AM CDT Sacha Willett MD LABORATORY Final Result -[facility] [address] [place] [address], * FOLIC ACID SERUM (06/22/2025 8:33 AM CDT) FOLATE 14.9 8.6 - 58.9 NG/ML 06/22/2025 3:09 PM CDT [facility] 06/22/2025 8:33 AM CDT Sacha Willett MD LABORATORY Final Result Performing Organization Address [facility] Co de Phone Number [facility] [address] [place] [address], [place] [phone] * OUTSIDE LAB (SCAN ORDER) (06/18/2025) Only the most recent of3 resultswithin the time period is included. 06/18/2025 [facility] Scanned SCANNING Final Resu lt * TSH W/REFLEX (05/17/2025 10:56 AM CDT) TSH 1.368 0.358 - 3.740 uIU/ML 05/17/2025 4:19 PM CDT [facility] 05/17/2025 10:5 6 AM CDT Sacha Willett MD LABORATORY Final Result Performing Organization Address [facility] Co de Phone Number [address] [place] [address], [place] [phone] * (ABNORMAL) COMPREHENSIVE METABOLIC PANEL (05/17/2025 10:56 AM CDT) Pathologist [facility] SODIUM S/P/B 141 136 - 145 MMOL/L 05/17/2025 4:19 PM CDT [facility] POTASSIUM S/P/B 4.3 3.5 - 5.1 MMOL/L 05/17/2025 4:19 PM CDT -[facility] CHLORIDE S/P/B 104 98 - 107 MMOL/L 05/17/2025 4:19 PM T MG-[facility] CO2 33.4(H) 21 - 32 MMOL/L 05/17/2025 4:19 PM T MG-[facility] Comment:RESULTS CONFIRMED-TE ST REPEATED GLUCOSE 123(H) 70 - 99 MG/DL 05/17/2025 4:19 PM T MG-[facility] BUN 10 7 - 18 MG/DL 05/17/2025 4:19 PM [facility] CREATININE S/P/B 0.95 0.55 - 1.02 MG/DL 05/17/2025 4:19 PM [facility] CALCIUM S/P/B 9.5 8.4 - 10.5 MG/DL 05/17/2025 4:19 PM T [facility] BILIRUBIN TOTAL S/P/B 0.6 0.2 - 1.0 MG/DL 05/17/2025 4:19 PM T MG-[facility] ALKALINE PHOSPHATASE S/P/B 71 55 - 142 U/L 05/17/2025 4:19 PM T [facility] AST 17 15 - 37 U/L 05/17/2025 4:19 PM [facility] ALT 15 14 - 59 U/L 05/17/2025 4:19 PM T [facility] TOTAL PROTEIN S/P/B 7.5 6.4 - 8.2 G/DL 05/17/2025 4:19 PM T [facility] ALBUMIN S/P/B 3.4 3.4 - 5.0 G/DL 05/17/2025 4:19 PM T [facility] ANION GAP 3.6(L) 5 - 15 MMOL/L 05/17/2025 4:19 PM T [facility] Comment:REFERENCE RANGE NOT ESTABLISHED OSMOLALITY (CALC) 292 MOSM/KG 025 4:19 PM CDT [facility] [place] Comment:REFERENCE RANGE NOT ESTABLISHED GFR ESTIMATE 62(L) >90 ML/MIN/1. 73 M2 05/17/2025 4:19 PM CDT [facility] GFR NOTES GFR REFERENCE S: 05/17/2025 4:19 PM T [facility] [place] Comment: THE ESTIMATED GFR IS CALCULATED USING [...] ml/min/1.73 m2 05/17/2025 10:5 6 AM CDT Sacha Willett MD LABORATORY Final Result [facility] [place], [place] [address] [place] [address], * LIPID PANEL (05/17/2025 10:56 AM CDT) CHOLESTEROL 155 <200 MG/DL 05/17/2025 4:19 PM CDT [facility] TRIGLYCERIDES 64 <150 MG/DL 05/17/2025 4:19 PM CDT [facility] HDL 70 >40 MG/DL 05/17/2025 4:19 PM CDT [facility] LDL-C 72 <100 MG/DL 05/17/2025 4:19 PM CDT [facility] VLDL CALCULATION 13 5 - 28 MG/DL 05/17/2025 4:19 PM CDT [facility] CHOL/HDL RATIO 2.2 0.0 - 4.0 05/17/2025 4:19 PM CDT [facility] LDL/HDL 1.0 0.41 - 2.13 05/17/2025 4:19 PM CDT [facility] NON HDL CHOLESTEROL 85 <140 MG/DL 05/17/2025 4:19 PM CDT [facility] 05/17/2025 10:5 6 AM CDT Sacha Willett MD LABORATORY Final Result [facility] [address] [place] [address], * (ABNORMAL) CBC W/DIFF AUTOMATED (05/17/2025 10:56 AM CDT) WBC 4.85 4.00 - 10.80 x10'3/uL 05/17/2025 4:03 PM CDT [facility] RBC 4.22 4.10 - 5.40 x10'6/uL 05/17/2025 4:03 PM CDT [facility] HGB 13.5 12.0 - 16.0 G/DL 05/17/2025 4:03 PM CDT [facility] HCT 42.5 36.0 - 47.0 % 05/17/2025 4:03 PM CDT [facility] MCV 100.7(H) 78.0 - 100.0 FL 05/17/2025 4:03 PM CDT [facility] MCH 32.0(H) 27.0 - 31.0 PG 05/17/2025 4:03 PM CDT [facility] MCHC 31.8(L) 33.0 - 36.0 G/DL 05/17/2025 4:03 PM CDT -[facility] RDW 12.6 11.5 - 14.5 % 05/17/2025 4:03 PM CDT -[facility] PLT 275 150 - 350 x10'3/uL 05/17/2025 4:03 PM CDT [facility] MPV 9.7 7.4 - 10.4 FL 05/17/2025 4:03 PM CDT [facility] DIFFERENTIAL TYPE AUTOMATED DIFFERENTIAL 05/17/2025 4:03 PM CDT [facility] NEUTROPHILS % 48.1 % 05/17/2025 4:03 PM CDT [facility] LYMPHOCYTES % 37.7 % 05/17/2025 4:03 PM CDT [facility] MONOCYTES % 7.2 % 05/17/2025 4:03 PM CDT [facility] EOSINOPHILS % 6.2 % 05/17/2025 4:03 PM CDT [facility] BASOPHILS % 0.6 % 05/17/2025 4:03 PM CDT [facility] IMMATURE GRANS % 0.2 % 05/17/2025 4:03 PM CDT [facility] ABS. NEUTROPHILS 2.33 1.60 - 8.30 x10'3/uL 05/17/2025 4:03 PM CDT [facility] ABS. LYMPHOCYTES 1.83 0.80 - 4.70 x10'3/uL 05/17/2025 4:03 PM CDT [facility] ABS. MONOCYTES 0.35 0.00 - 1.50 x10'3/uL 05/17/2025 4:03 PM CDT [facility] ABS. EOSINOPHILS 0.30 0.00 - 0.40 x10'3/uL 05/17/2025 4:03 PM CDT [facility] ABS. BASOPHILS 0.03 0.00 - 0.20 x10'3/uL 05/17/2025 4:03 PM CDT [facility] ABS. IMMATURE GRANULOCYTES 0.01 0.00 - 0.03 x10'3/uL 05/17/2025 4:03 PM CDT [facility] 05/17/2025 10:5 6 AM CDT Sacha Willett MD LABORATORY Final Result Performing Organization Address [facility] Co de Phone Number [facility] [address] [place] [address], [place] [phone] * HEMOGLOBIN, GLYCOSYLATED (05/17/2025) [facility] HGB A1C 5.9 % [facility] [place] 05/17/2025 Sacha Willett MD LABORATORY Final Result Performing Organization Address [facility] Co de Phone Number [facility] [place] [address] [facility] [address] [place] [address], [place] [phone] * HEPATITIS C ANTIBODY (06/23/2024 2:46 PM CDT) [facility] HEPATITIS C AB NON-REACTI VE NON-REACT [place] 06/23/2024 9:41 PM CDT [facility] Comment: ANTIBODIES TO HCV NOT DETECTED. DOES NOT EXCLUDE THE POSSIBILITY OF EXPOSURE TO HCV. 06/23/2024 2:46 PM CDT Sacha Willett MD LABORATORY Final Result Performing Organization Address [facility] Co de Phone Number [facility] [address] [place] [address], [place] [phone] * COLOGUARD (EXACT SCIENCE) (12/17/2023 2:00 PM IMAGE ASSEMBLER) [facility] COLOGUARD RESULT Negative Negative [facility] (CLIA #:[id number]) Comment: NEGATIVE TEST RESULT. A negative Cologuard [...] screened with both Cologuard and colonoscopy. (Gold Garcia. et al, N Engl J Med 2014;370(14):9721-1510) The normal value (reference range) for this assay is negative. COLOGUARD RE-SCREENING RECOMMENDATION: Periodic colorectal cancer screening is an important part of preventive healthcare for asymptomatic individuals at average risk for colorectal cancer. Following a negative Cologuard result, the [place] [employer] and U.S. Multi-Society Task Force screening guidelines recommend a Cologuard re-screening interval of 3 years. References: [place] [employer] Guideline for Colorectal Cancer Screening: https://www.cancer.org/cancer/darji-xdpkzt-vhqxeg/woflsqxak-xrbxmcskb-lttbwax/ac s-rec ommendations.html.; Chidi ASHLEY, Milagros GUZMAN, Trace MATIAS, Colorectal Cancer Screening: Recommendations for Physicians and Patients from the U.S. Multi-Society Task Force on Colorectal Cancer Screening , Am J Gastroenterology 2017; 112:8361-4036. TEST DESCRIPTION: Composite algorithmic analysis of stool [...] Jason et al, N Engl J Med 2014;370(14):0733-9155.) Cologuard may produce a false negative or false positive result (no colorectal cancer or precancerous polyp present at colonoscopy follow up). A negative Cologuard test result does not guarantee the absence of CRC or advanced adenoma (pre-cancer). The current Cologuard screening interval is every 3 years. ([place] [employer] and U.S. Multi-Society Task Force). Cologuard performance data in a 10,000 patient pivotal study using colonoscopy as the reference method can be accessed at the following location: www.[employer]/results. Additional description of the Cologuard test process, warnings and precautions can be found at www.[employer] PartnershipsogLeakyrd.com. STOOL STOOL SPECIMEN / Unknown 12/17/2023 2:00 PM IMAGE ASSEMBLER 12/18/2023 10:00 AM IMAGE ASSEMBLER Sacha Willett MD BODY FLUIDS AND STOOLS ORDERABLE S Final Result [facility] [address] LAB) [address] [place] [address], [employer] (CLIA #:[id number]) [address] [place] [address] from Last 3 Months or Most Recently Relevant to Health Maintenance Insurance [facility] MEDIC[facility] Advance Directives * Full Code (Latest Code Status on File) Date Activated Date Inactivated Comments 07/28/2023 11:25 AM 11/25/2023 6:38 PM Care Teams Food Checker Relationship Specialty Start Date End Date Sacha Willett MD [address] [facility] [address] [place] [address] PCP - General INTERNAL MEDICINE 03/10/23
--- OUTSIDE RECORDS SUMMARY | 2025-07-13 10:40 | XMS_ITS | Encounter Summary ---
Author Organization [facility] Address [facility] [place] [address] Care Team Providers Care Poolroom Table Attendant Name Role Phone Sacha Willett MD Primary Care Provider Encounter Details Date Type Department Care Team (Latest Contact Info) Description 06/22/2025 Results Follow-Up [facility] Multispecialty Care - [address] [address] [place], [place] [phone] Sacha Willett MD [address] [place] [address] [address] [place] [address] FOLIC ACID SERUM, VITAMIN B-12 Social History Tobacco Use Types Packs/Day Years [...] Info) Description 07/13/2025 3:40 PM CDT [facility] - [address] [place] [address] Sacha Willett MD [address] [place] [address] 08/23/2025 9:40 AM PRESSER FIRST Office Visit [facility] - [address] [place] [address] Sacha Willett MD [address] [place] [address] 09/05/2025 8:40 AM PRESSER FIRST Office Visit [facility] - [facility] [address] [facility], [address] [place] [id number] Sarai Jaimes MD [address] [place] [address] documented as of this encounter Visit Diagnoses Not on filedocumented in this encounter Additional Health Concerns Assessment Noted Time PHQ-9 Depression Total Score: 5 12/05/19 24 11:42 AM PRESSER FIRST documented as of this encounter Care Teams Poolroom Table Attendant Relationship Specialty Start Date End Date Sacha Willett MD [address] [place] [address] PCP - General INTERNAL MEDICINE 03/10/23 documented as of this encounter
--- OUTSIDE RECORDS SUMMARY | 2025-07-13 10:40 | XMS_ITS | Encounter Summary ---
Author Organization [facility] Address [address] [place] [address] Care Team Providers Care Personal Property Assessor Name Role Phone Sacha Willett MD Primary Care Provider [phone] Encounter Details Date Type Department Care Team (Latest Contact Info) Description 05/17/2025 Results Follow-Up [facility] Multispecialty Care - [place] [address] [address] [place] [address] Sacha Willett MD [address] [place] [address] [address] [place] [address] CBC W/DIFF AUTOMATED, COMPREHENSIVE METABOLIC [...] Info) Description 07/13/2025 3:40 PM CDT [facility] [address] [place] [address] Sacha Willett MD [address] [place] [address] 08/23/2025 9:40 AM TECHNICAL COMMUNICATION TEACHER Office Visit [facility] - [address] [place] [address] Sacha Willett MD [address] [place] [address] 09/05/2025 8:40 AM TECHNICAL COMMUNICATION TEACHER Office Visit [facility] - [facility] [address] [facility], [address] [place] [id number] Sarai Jaimes MD [address] [place] [address] documented as of this encounter Visit Diagnoses Not on filedocumented in this encounter Additional Health Concerns Assessment Noted Time PHQ-9 Depression Total Score: 5 12/05/19 24 11:42 AM TECHNICAL COMMUNICATION TEACHER documented as of this encounter Care Teams Personal Property Assessor Relationship Specialty Start Date End Date Sacha Willett MD [address] [place] [address] PCP - General INTERNAL MEDICINE 03/10/23 documented as of this encounter
[2025-07-13 11:18] VITALS: BP 163/86; PULSE 74; RESP 18; O2SAT 100
== END 2025-07-13 11:20 | disposition home or self-care (01) ==
PROVIDERS: Emergency Provider Nurse Practitioner Family; PCP Internal Medicine
DX: L25.9 Unspecified contact dermatitis, unspecified cause (principal)
CPT/HCPCS: 99283; A9270; J7512